=== PATIENT | male | born 1935 | race Caucasian/White ===

== ENCOUNTER → 2016-06-27 | Outpatient (CLI) | payer OTHER, BC ==
[~2016-06-27] MED LIST: ASPI325T45 PO; CYAN3INJ IM; ENAL1TAB34 PO; INSDGI SC; METF850T PO; MULT-190 PO; NRV5 PO; OMEP10CA2 PO; SIMV20TA2 PO
[2016-06-27 14:09] LABS: ESTIMATED AVERAGE GLUCOSE 214 mg/dl; HA1C FLAG Normal (Normal)
[2016-06-27 14:56] LABS: BLOOD UREA NITROGEN 17 mg/dl (7-18); CALCIUM 9.6 mg/dl (8.5-10.1); CARBON DIOXIDE 23 mmol/L (21-32); CHLORIDE 107 mmol/L (98-107); GLUCOSE 202 mg/dl (70-99); PHOSPHORUS 2.7 mg/dl (2.5-4.9); POTASSIUM 4.6 mmol/L (3.5-5.1); SODIUM 140 mmol/L (136-145)
== END | disposition home or self-care (01) ==
LOC: C.LABMFLN 09:23
PROVIDERS: ATTEND Family Medicine
DX: E11.42 Type 2 diabetes mellitus with diabetic polyneuropathy (principal)

== ENCOUNTER → 2016-07-31 | Outpatient (CLI) | payer OTHER, BC ==
[~2016-07-31] MED LIST changes: +REGADENOSON 0.4 MG/5 ML SYR ONE
--- NOTE | 2016-08-01 22:45 | MYOCARDIAL PERFUSION SCAN ---
Study requested by Dr. Dyson. PRIMARY CARE PHYSICIAN: Dr. Ramos. ONE-DAY NUCLEAR MEDICINE TECHNETIUM-99M CARDIOLITE MYOCARDIAL PERFUSION SCAN INDICATION: Abnormal echo. RESTING EKG. Sinus rhythm with a ventricular pacing. STRESS EKG Nondiagnostic with ventricular pacing and failure to achieve target heart rates. Resting heart rate was 60, up to 92 with Lexiscan, representing 66% of maximum predicted heart rate. There were occasional PACs and PVCs, but no other complex arrhythmias. TECHNIQUE: For the stress portion of the study, 30.9 mCi of technetium-99m Cardiolite IV was injected at 11:30 a.m. on July 31. Thirty minutes following the injection, imaging of the heart was performed in multiple projections. For the rest portion of the study, 11.1 mCi of technetium-99m Cardiolite was injected IV at 9:30 a.m. One hour following the injection, imaging of the heart was performed in the same projections. FINDINGS: Rotating raw images were reviewed in detail. Arms were down at the time of imaging. There was mild gut and liver uptake near the inferior imaging border of the heart. There was no significant pathologic extracardiac uptake. The short axis, vertical long axis and horizontal long axis images were reviewed in detail. There was no visual TID. There was a small, mild fixed perfusion defect involving the apex and apical septum without significant reversibility. The EF was 53%. The end LV volume was at the upper limits of normal with an end-diastolic volume of 145. There was apical hypokinesis and almost dyskinesis at the apical septum. IMPRESSION: 1. No significant Lexiscan-induced myocardial ischemia. 2. A small fixed apical apical-septal perfusion defect. Likely represents artifact/potential apical thinning; less likely, findings could represent a small distal left anterior descending infarct. 3. Borderline dilated left ventricle with an end-diastolic volume of 145. Normal left ventricular function with an EF of 53%. 4. Nondiagnostic ventricularly-paced Lexiscan electrocardiogram. MTDD
== END | disposition home or self-care (01) ==
LOC: C.NUCL 09:05
PROVIDERS: ATTEND Internal Medicine Cardiovascular Disease
DX: E78.5 Hyperlipidemia, unspecified (principal); I10 Essential (primary) hypertension; I25.10 Atherosclerotic heart disease of native coronary artery without angina pectoris; I77.810 Thoracic aortic ectasia; R60.9 Edema, unspecified; R93.1 Abnormal findings on diagnostic imaging of heart and coronary circulation

== ENCOUNTER → 2016-09-20 | Outpatient (CLI) | payer OTHER, BC ==
[~2016-09-20] MED LIST changes: -REGADENOSON 0.4 MG/5 ML SYR ONE
[2016-09-20 13:15] LABS: COMPLETE YES; EOS % 0.8 %; HEMATOCRIT 36.5 % (42-52); IG% 0.7 %; LYMPH % 17.8 %; LYMPH ABS # 1.69 K/uL (1.2-3.4); MEAN CELL VOLUME 92.9 fL (80-100); MEAN CORPUSCULAR HEMOGLOBIN 31.3 pg (25-34); MEAN CORPUSCULAR HGB CONC 33.7 g/dl (32-36); MEAN PLATELET VOLUME 9.8 fL (7.4-10.4); MONO % 22.4 %; NEUT % 58.3 %; PLATELET COUNT 249 K/uL (130-400); RED BLOOD COUNT 3.93 M/uL (4.7-6.1); WHITE BLOOD COUNT 9.47 K/uL (4.8-10.8)
[2016-09-20 14:53] LABS: LYME DISEASE AB IGG NEG (NEG)
[2016-09-20 14:55] LABS: LYME DISEASE AB IGM NEG (NEG)
== END | disposition home or self-care (01) ==
LOC: C.LABMFLN 09:15
PROVIDERS: ATTEND Family Medicine
DX: M25.50 Pain in unspecified joint (principal)

== ENCOUNTER → 2016-10-01 | Outpatient (CLI) | payer OTHER, BC ==
[2016-10-01 13:31] LABS: ESTIMATED AVERAGE GLUCOSE 169 mg/dl; HA1C FLAG Normal (Normal)
[2016-10-01 13:41] LABS: BLOOD UREA NITROGEN 28 mg/dl (7-18); BUN/CREATININE RATIO 23.3 (10-20); CALCIUM 9.9 mg/dl (8.5-10.1); CARBON DIOXIDE 26 mmol/L (21-32); CHLORIDE 105 mmol/L (98-107); GLUCOSE 148 mg/dl (70-99); POTASSIUM 4.7 mmol/L (3.5-5.1); SODIUM 138 mmol/L (136-145)
[2016-10-01 13:55] LABS: PHOSPHORUS 2.5 mg/dl (2.5-4.9)
== END | disposition home or self-care (01) ==
LOC: C.LABMFLN 11:33
PROVIDERS: ATTEND Family Medicine
DX: I10 Essential (primary) hypertension (principal); E11.49 Type 2 diabetes mellitus with other diabetic neurological complication; M25.50 Pain in unspecified joint; M79.1 Myalgia

== ENCOUNTER → 2017-02-12 | Outpatient (CLI) | payer OTHER, BC ==
[2017-02-12 18:15] LABS: BASO % 0.1 %; BASO ABS # 0.01 K/uL (0-0.2); COMPLETE YES; EOS % 0.1 %; HEMATOCRIT 38.7 % (42-52); IG% 2.6 %; LYMPH % 12.3 %; LYMPH ABS # 1.49 K/uL (1.2-3.4); MEAN CELL VOLUME 95.6 fL (80-100); MEAN CORPUSCULAR HEMOGLOBIN 31.9 pg (25-34); MEAN CORPUSCULAR HGB CONC 33.3 g/dl (32-36); MEAN PLATELET VOLUME 10.8 fL (7.4-10.4); MONO % 12.1 %; NEUT % 72.8 %; PLATELET COUNT 210 K/uL (130-400); RED BLOOD COUNT 4.05 M/uL (4.7-6.1); WHITE BLOOD COUNT 12.15 K/uL (4.8-10.8)
[2017-02-12 18:23] LABS: BLOOD UREA NITROGEN 19 mg/dl (7-18); CALCIUM 9.4 mg/dl (8.5-10.1); CARBON DIOXIDE 23 mmol/L (21-32); CHLORIDE 104 mmol/L (98-107); CREATININE 1.14 mg/dl (0.60-1.40); GLUCOSE 213 mg/dl (70-99); PHOSPHORUS 2.4 mg/dl (2.5-4.9); POTASSIUM 4.6 mmol/L (3.5-5.1); SODIUM 135 mmol/L (136-145)
[2017-02-12 18:31] LABS: RATIO 90.7 mcg/mg (0-30.0)
[2017-02-13 05:17] LABS: ESTIMATED AVERAGE GLUCOSE 194 mg/dl; HA1C FLAG Normal (Normal)
== END | disposition home or self-care (01) ==
LOC: C.LABMFLN 12:18
PROVIDERS: ATTEND Family Medicine
DX: E11.42 Type 2 diabetes mellitus with diabetic polyneuropathy (principal)

== ENCOUNTER → 2017-05-14 | Outpatient (CLI) | payer OTHER, BC ==
[2017-05-14 19:10] LABS: ALBUMIN 3.8 gm/dl (3.4-5.0); BLOOD UREA NITROGEN 20 mg/dl (7-18); CALCIUM 9.3 mg/dl (8.5-10.1); CARBON DIOXIDE 29 mmol/L (21-32); CREATININE 1.14 mg/dl (0.60-1.40); GLUCOSE 151 mg/dl (70-99); POTASSIUM 4.8 mmol/L (3.5-5.1); SODIUM 140 mmol/L (136-145)
[2017-05-14 19:11] LABS: PHOSPHORUS 2.8 mg/dl (2.5-4.9)
[2017-05-15 07:20] LABS: HEMOGLOBIN A1C 8.1 % (4.5-5.6)
== END | disposition home or self-care (01) ==
LOC: C.LABMFLN 14:53
PROVIDERS: ATTEND Family Medicine
DX: E11.49 Type 2 diabetes mellitus with other diabetic neurological complication (principal)

== ENCOUNTER 2018-07-23 13:00 | Inpatient (IN) ==
[2018-07-23] MEDS ORDERED: SODIUM CHLORIDE 0.9% 1000ML 500 ML IV ONE (13:50)
[2018-07-23 14:03] LABS: Hematocrit (blood only) 40.7 % (42-52); Hemoglobin 13.7 g/dL (14.0-18.0); Mean Corpuscular Hgb Conc 33.7 g/dL (32-36); Mean Corpuscular Volume 93.3 fL (80-100); Mean Platelet Volume 10.8 fL (7.4-10.4); Platelet Count 180 K/uL (130-400); RDW Coefficient of Variation 13.2 % (11.5-14.5); RDW Standard Deviation 45.4 fL (36.4-46.3); Red Blood Count 4.36 M/uL (4.7-6.1)
[2018-07-23 14:12] LABS: Alanine Aminotransferase 21 U/L (12-78); Albumin Level 3.8 gm/dl (3.4-5.0); Aspartate Aminotransferase 15 U/L (15-37); BUN Creatinine Ratio 11.8 (10-20); Blood Urea Nitrogen 18 mg/dl (7-18); Calcium 9.5 mg/dl (8.5-10.1); Carbon Dioxide 23 mmol/L (21-32); Chloride 108 mmol/L (98-107); Est GFR (African American) 47.7; Est GFR (Non-African American) 41.1; Glucose 148 mg/dl (70-99); Magnesium 1.7 mg/dl (1.8-2.4); Potassium 4.7 mmol/L (3.5-5.1); Sodium 139 mmol/L (136-145)
[2018-07-23 14:14] LABS: D Dimer 500 ug/L FEU (0-500); INR 1.2 (0.9-1.1); Prothrombin Time 11.7 Seconds (9.0-12.0)
--- NOTE | 2018-07-23 14:21 | XRay Report ---
XR chest 1V portable CLINICAL HISTORY: dizziness, hypotension COMPARISON STUDY: March 2015 FINDINGS: The heart is the upper limits of normal in size. There is a left subclavian dual-chamber ce ntral venous pacemaker. There is no focal pulmonary consolidation. There is no overt failure. There a re no pleural effusions.[ IMPRESSION: No active disease in the chest. Electronically signed by: Dorian Clark M.D. 07/23/2018 2:19 PM
[2018-07-23 14:26] LABS: Albumin Globulin Ratio 1.1 (0.9-2); Alkaline Phosphatase 92 U/L (45-117); Bilirubin,Total 0.7 mg/dl (0.2-1); Globulin 3.3 gm/dl (2.5-4.0); NT Pro B Type Natriuretic Pept 15963 pg/ml (0-1800); Total Protein 7.1 gm/dl (6.4-8.2); Troponin I 0.102 ng/ml (0-0.045)
[2018-07-23 14:38] LABS: Basophils # (auto) 0.01 K/uL (0-0.2); Basophils % (auto) 0.1 %; Eosinophils # (auto) 0.04 K/uL (0-0.5); Eosinophils % (auto) 0.3 %; Immature Granulocytes # (auto) 0.06 K/uL (0.00-0.02); Immature Granulocytes % (auto) 0.5 %; Lymphocytes # (auto) 3.21 K/uL (1.2-3.4); Lymphocytes % (auto) 27.4 %; Monocytes # (auto) 1.98 K/uL (0.11-0.59); Monocytes % (auto) 16.9 %; Neutrophils % (auto) 54.8 %; RBC Morphology Unremarkable
--- NOTE | 2018-07-23 15:09 | History & Physical Report ---
Date of Service July 23, 2018 Assessment & Plan (1) NSTEMI (non-ST elevated myocardial infarction): 82 y/o M Hx HTN, HLD, RA, CAD/ND, A flutter, chronic systolic CHF, DM II, complete heart block - pacer. Presented with an episode of lightheadedness, nausea, dry heaving, diaphoresis and SOB lasting a few minutes. He states that the symptoms were similar to when he had an ND in 2010, however, he also had CP at that time which he did not have today. Pacer interrogation did not demonstrate an etiology for the pt's symptoms. Initial labs show an elevated troponin and mild VANDANA. An EKG is nondiagnostic due to dual-chamber pacing. 1) NSTEMI - The pt will be assigned to telemetry. We will trend enzymes. 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 He does not tolerate Statins. 2) DM II - placed on a SS with Lantus 3) HTN/HLD - as above - does not tolerate Statins - cont Enalapril 4) RA - can resume Hydroxychloroquine 5) Mild VANDANA - IVF provided - repeat BMP AM Full cod - Heparin prophylaxis Total time for this admit including review of labs, meds, imaging, records - discussion with pt and ER attending - 38 min Present on Admission?: Yes History of Present Illness Chief Complaint: Lightheaded, diaphoresis - elevated trop Primary Care Provider: Katerina Ramos MD 82 y/o M Hx HTN, HLD, RA, CAD/ND, A flutter, chronic systolic CHF, DM II, complete heart block - pacer. Presented with an episode of lightheadedness, nausea, dry heaving, diaphoresis and SOB lasting a few minutes. He states that the symptoms were similar to when he had an ND in 2010, however, he also had CP at that time which he did not have today. Pacer interrogation did not demonstrate an etiology for the pt's symptoms. Initial labs show an elevated troponin and mild VANDANA. An EKG is nondiagnostic due to dual-chamber pacing. 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 Family: Adopted Allergies Allergy/AdvReac Type Severity Reaction Status Date / Time No Known Allergies Allergy Unverified 07/23/18 13:44 Home Medications Home Medications Medication Instructions Recorded Confirmed Type antiox.mv no.[id number] 1 cap PO DAILY 07/23/18 07/23/18 History [I-Caps] enalapril maleate 20 mg PO DAILY 07/23/18 07/23/18 History hydroxychloroquine 200 mg PO DAILY 07/23/18 07/23/18 History insulin glargine [Lantus Solostar 20 unit SUBCUT HS 07/23/18 07/23/18 History U-100 Insulin] metformin 1,000 mg PO BID 07/23/18 07/23/18 History nitroglycerin 0.4 mg SUBLINGUAL DIRECTED 07/23/18 07/23/18 History omeprazole 20 mg PO DAILY 07/23/18 07/23/18 History Past Med/Surg History Medical History Heart attack Surgical History History of permanent cardiac pacemaker placement Social History Preferred Language: [place] Communication Ability: Effective 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 Beliefs That Will Affect Care: None marital status: Current Living Situation: Spouse Other Information That Helps Us Care for You: No Feels Safe at Home: Yes Safety Concerns: Feels Safe At This Time Smoking Status: Former smoker Tobacco Type: cigarettes Do You Dip or Chew Tobacco: No Smoking End Date: 1993 Second Hand Exposure: No Tobacco Cessation Education Requested by Patient: No Hx Alcohol Use: Yes Alcohol type: beer Hx Substance Use: No Review of Systems Review of Systems: Gen: Diaphoresis ENT: Denies congestion, throat pain, hearing loss Eyes: Denies acute visual changes CV: Denies CP, palpitations Pulmonary: SOB reported with CP GI: Nausea and dry heaving Neuro: Denies acute or unilateral weakness, acute gait impairment, headache or acute visual changes Musculoskeletal: Denies joint pain, inflammation Endocrine: Denies polydipsia, polyuria Skin: Denies acute rashes or ulcers Physical Exam Physical Exam: General: AAO x 3, no distress ENT: No erythema or exudates, no thrush Eyes: FLORENCIA, EOMI Head and neck: Normocephalic, atraumatic, No JVD, neck is supple. Chest/heart: Nontender, S1,2, RRR, faint, no murmurs, no gallops - no induration at pacer site Lungs: CTAB, no wheezing or crackles Abdomen: Nontender, nondistended, BS+ Neuro: AAO x 3, speech is clear, no unilateral weakness or loss of sensation, coordination intact Musculoskeletal: No joint inflammation, muscle tenderness, FROM Skin: No acute rashes or ulcers Extremities: No clubbing, cyanosis, edema Results & Data Vital Signs (Past 12 Hours) Vital Signs Temp Pulse Resp BP Pulse Ox 07/23/18 14:30 61 17 134/65 07/23/18 14:00 61 14 112/57 L 07/23/18 13:30 61 17 91/51 L 07/23/18 13:15 66 23 101/53 L 07/23/18 13:03 97.5 F L 60 20 96/59 L 97
[2018-07-23] MEDS ORDERED: ALUMINUM/MAGNESIUM SUSP 30 ML UDC PO PRN (16:39)
[2018-07-23] MEDS ORDERED: POLYETHYLENE (MIRALAX) 17 GM PACK PO PRN (16:39)
[2018-07-23] MEDS ORDERED: ONDANSETRON INJ 2 MG/ML 2 ML VIAL IV PRN (16:39)
[2018-07-23] MEDS ORDERED: SODIUM CHLORIDE 0.9% 1000ML 1,000 ML IV SCH (16:39)
[2018-07-23] MEDS ORDERED: MoRPHine SULFATE 2 MG/ML CARP IV PRN (16:39)
[2018-07-23] MEDS ORDERED: ACETAMINOPHEN 325 MG TAB PO PRN (16:39)
[2018-07-23] MEDS ORDERED: MAGNESIUM HYDROXIDE SUSP 30 ML UDC PO PRN (16:39)
[2018-07-23] MEDS ORDERED: NITROGLYCERIN SL 0.4 MG/TAB TAB SL PRN (16:39)
[2018-07-23] MEDS ORDERED: Heparin IV Standard *NO* Bolus IV SCH (16:45)
[2018-07-23] MEDS ORDERED: DEXTROSE 50% 50 ML SYRINGE IV PRN ×2 (19:00→21:08)
[2018-07-23] MEDS ORDERED: GLUCOSE 40% GEL 15 GM TUBE PO PRN ×2 (19:00→21:08)
[2018-07-23] MEDS ORDERED: CARBOHYDRATES FOR HYPOGLYCEMIA PO PRN ×2 (19:00→21:08)
[2018-07-23] MEDS ORDERED: GLUCAGON FOR INJ 1 MG VIAL IM PRN (19:00)
[2018-07-23] MEDS ORDERED: GLUCOSE 10 TABS/TUBE PO PRN ×2 (19:00→21:08)
[2018-07-23] MEDS ORDERED: INSULIN GLARGINE SOLOSTAR 100 UNITS/ML 3 ML PEN SQ SCH (21:00)
[2018-07-23 21:02] LABS: Appearance Urine Cloudy (Clear); Bacteria Urine Automated Negative (Negative); Bilirubin Urine Negative (Negative); Blood Urine Negative (Negative); Color Urine Dark Yellow; Epithelial Cell Urine Auto >30 /lpf (0-5); Glucose Urine UA Negative (Negative); Ketones Urine Trace (Negative); Leukocyte Esterase Urine Trace (Negative); Nitrite Urine Negative (Negative); Protein Urine 1+ (Negative); RBC Urine Automated 0-4 /hpf (0-4); Specific Gravity Urine 1.021 (1.000-1.030); Urobilinogen Urine Negative (Negative)
[2018-07-23] MEDS ORDERED: GLUCAGON FOR INJ 1 MG VIAL SQ PRN (21:08)
[2018-07-23 21:38] LABS: Cast Urine Automated >30 /lpf (0-5)
[2018-07-23] MEDS: D5W AND 1/2NSS 1,000 ML IV SCH (21:41)
[2018-07-23 23:14] LABS: Basophils # (auto) 0.01 K/uL (0-0.2); Basophils % (auto) 0.1 %; Eosinophils # (auto) 0.04 K/uL (0-0.5); Eosinophils % (auto) 0.5 %; Hematocrit (blood only) 34.4 % (42-52); Hemoglobin 12.1 g/dL (14.0-18.0); Immature Granulocytes # (auto) 0.03 K/uL (0.00-0.02); Immature Granulocytes % (auto) 0.3 %; Lymphocytes # (auto) 2.53 K/uL (1.2-3.4); Lymphocytes % (auto) 29.1 %; Mean Corpuscular Hgb Conc 35.2 g/dL (32-36); Mean Corpuscular Volume 90.3 fL (80-100); Mean Platelet Volume 9.6 fL (7.4-10.4); Monocytes # (auto) 2.28 K/uL (0.11-0.59); Monocytes % (auto) 26.2 %; Neutrophils % (auto) 43.8 %; Platelet Count 148 K/uL (130-400); RDW Coefficient of Variation 13.2 % (11.5-14.5); RDW Standard Deviation 42.9 fL (36.4-46.3); Red Blood Count 3.81 M/uL (4.7-6.1); White Blood Count 8.69 K/uL (4.8-10.8)
[2018-07-23 23:27] LABS: INR 1.2 (0.9-1.1); Partial Thromboplastin Ratio 1.3; Partial Thromboplastin Time 35.1 Seconds (21.0-31.0); Prothrombin Time 11.8 Seconds (9.0-12.0)
[2018-07-23] MEDS ORDERED: Heparin Adult STANDARD Wt-Based Dextrose 5% 25,000 units/500 mL IV SCH (23:55)
[2018-07-24] MEDS: INSULIN ASPART 100 UNITS/ML 3 ML PEN SC SCH ×3 (06:08→12:14)
[2018-07-24 06:49] LABS: Eosinophils # (auto) 0.06 K/uL (0-0.5); Eosinophils % (auto) 0.7 %; Hematocrit (blood only) 34.3 % (42-52); Immature Granulocytes # (auto) 0.03 K/uL (0.00-0.02); Immature Granulocytes % (auto) 0.3 %; Lymphocytes # (auto) 2.69 K/uL (1.2-3.4); Lymphocytes % (auto) 30.7 %; Mean Corpuscular Volume 90.5 fL (80-100); Mean Platelet Volume 9.9 fL (7.4-10.4); Monocytes # (auto) 2.37 K/uL (0.11-0.59); Monocytes % (auto) 27.1 %; Neutrophils # (auto) 3.61 K/uL (1.4-6.5); Neutrophils % (auto) 41.2 %; Platelet Count 148 K/uL (130-400); RDW Coefficient of Variation 13.2 % (11.5-14.5); RDW Standard Deviation 43.6 fL (36.4-46.3); Red Blood Count 3.79 M/uL (4.7-6.1); White Blood Count 8.76 K/uL (4.8-10.8)
--- NOTE | 2018-07-24 07:11 | Emergency Department Note ---
Entered by Nanci Singh acting as a scribe for History of Present Illness General Chief complaint: Dizziness Stated complaint: DIZZY, ALMOST PASSED OUT, BP HIGH, PACEMAKER Time Seen by Provider: 07/23/18 13:13 Source: patient Mode of arrival: ambulatory Limitations: no limitations History of Present Illness Provider complaint: dizzy Onset (ago): hour(s) 3 Location: head Pain Consistency: + other (episode) Quality: + other (dizzy) Associated symptoms: + denies other symptoms (leg swelling, speech slur), + diaphoresis, + headaches, + nausea/vomiting and + other (tired,pale ); no chest pain and no shortness of breath The patient is an 82 year old male who presents to the ER with complaints of an episode of dizziness that occurred eat 1100 today. The patient reports that he was sitting down watching television when he suddenly got dizzy, hot and diaphoretic. He states that he felt nauseous during this episode as well but denies any vomiting. He notes that he did eat breakfast today and did take his morning medications. He also reports that his symptoms felt similar to when he had a heart attack, but notes he had chest pain during that time and not today. He denies any associated symptoms or leg swelling but states he does have a mild headache and feels tired. He denies any urinary symptoms or abnormal bowel movements. The daughter denies any speech slur but notes he does look pale. Patient denies any recent illness, fevers or chills. No recent change in medications or change in activity. 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 Patient does feel he has had an echo recently as part of an evaluation for his pacemaker. Pt feels improved now, but not completely back to normal. Review of EMR with the assistance of case management shows an echo performed earlier this year with an EF of 45% and cardiomyopathy noted. Home Medications Home Medications Medication Instructions Recorded Confirmed Type antiox.mv [id number] 1 cap PO DAILY 07/23/18 07/23/18 History [I-Caps] enalapril maleate 20 mg PO DAILY 07/23/18 07/23/18 History hydroxychloroquine 200 mg PO DAILY 07/23/18 07/23/18 History insulin glargine [Lantus Solostar 20 unit SUBCUT HS 07/23/18 07/23/18 History U-100 Insulin] metformin 1,000 mg PO BID 07/23/18 07/23/18 History nitroglycerin 0.4 mg SUBLINGUAL DIRECTED 07/23/18 07/23/18 History omeprazole 20 mg PO DAILY 07/23/18 07/23/18 History Allergies Allergy/AdvReac Type Severity Reaction Status Date / Time No Known Allergies Allergy Unverified 07/23/18 13:44 Past Med/Surg History Medical History Heart attack Surgical History History of permanent cardiac pacemaker placement Social History Preferred Language: British Communication Ability: Effective Chemical Educator Required: No Beliefs That Will Affect Care: None marital status: Current Living Situation: Spouse Other Information That Helps Us Care for You: No Feels Safe at Home: Yes Safety Concerns: Feels Safe At This Time Smoking Status: Former smoker Tobacco Type: cigarettes Do You Dip or Chew Tobacco: No Smoking End Date: 1993 Second Hand Exposure: No Tobacco Cessation Education Requested by Patient: No Hx Alcohol Use: Yes Alcohol type: beer Hx Substance Use: No Review of Systems See HPI for pertinent positives & negatives. and A total of 10 systems reviewed and were otherwise negative Physical Exam Vital Signs Vital Signs - 24 hr 07/23/18 13:03 07/23/18 13:15 07/23/18 13:30 Temperature 36.4 C L Temperature Source Oral Sepsis Recent Fever Within 48 Hours No Sepsis New/Unexplained Change in Mental Status No Sepsis Action Taken by Nursing No Action Required Pulse Rate 60 66 61 Pulse Rate [Apical] Pulse Rate [Finger] Pulse Rhythm Regular Pulse Rhythm [Apical] Pulse Strength Normal Pulse Strength [Apical] Respiratory Rate 20 23 17 Respiratory Effort / Characteristics Non-Labored Spontaneous Nasal Congestion Respiratory Depth Normal Blood Pressure 96/59 L 101/53 L 91/51 L Blood Pressure [Left Arm] Blood Pressure [Right Arm] Blood Pressure Mean 71 69 64 Blood Pressure Mean [Left Arm] Blood Pressure Mean [Right Arm] Blood Pressure Position Sitting Blood Pressure Position [Left Arm] Blood Pressure Position [Right Arm] Pulse Oximetry 97 Oxygen Delivery Method Room Air 07/23/18 14:00 07/23/18 14:30 05/09/19 15:22 Temperature Temperature Source Sepsis Recent Fever Within 48 Hours Sepsis New/Unexplained Change in Mental Status Sepsis Action Taken by Nursing Pulse Rate 61 61 Pulse Rate [Apical] 60 Pulse Rate [Finger] Pulse Rhythm Pulse Rhythm [Apical] Pulse Strength Pulse Strength [Apical] Respiratory Rate 14 17 17 Respiratory Effort / Characteristics Respiratory Depth Blood Pressure 112/57 L 134/65 Blood Pressure [Left Arm] 128/63 Blood Pressure [Right Arm] Blood Pressure Mean 75 88 Blood Pressure Mean [Left Arm] 84 Blood Pressure Mean [Right Arm] Blood Pressure Position Blood Pressure Position [Left Arm] Sitting Blood Pressure Position [Right Arm] Pulse Oximetry 97 Oxygen Delivery Method Room Air 07/23/18 16:38 07/23/18 16:39 07/23/18 19:22 Temperature 36.3 C L 36.5 C Temperature Source Oral Oral Sepsis Recent Fever Within 48 Hours Sepsis New/Unexplained Change in Mental Status Sepsis Action Taken by Nursing Pulse Rate Pulse Rate [Apical] 65 61 69 Pulse Rate [Finger] Pulse Rhythm Pulse Rhythm [Apical] Regular Pulse Strength Pulse Strength [Apical] Normal Respiratory Rate 18 18 Respiratory Effort / Characteristics Respiratory Depth Blood Pressure Blood Pressure [Left Arm] Blood Pressure [Right Arm] 131/70 150/74 H Blood Pressure Mean Blood Pressure Mean [Left Arm] Blood Pressure Mean [Right Arm] 90 99 Blood Pressure Position Blood Pressure Position [Left Arm] Blood Pressure Position [Right Arm] Sitting Lying Pulse Oximetry 98 97 Oxygen Delivery Method Room Air Room Air 07/23/18 23:06 07/24/18 03:21 07/24/18 06:40 Temperature 36.6 C 36.5 C 36.8 C Temperature Source Oral Oral Oral Sepsis Recent Fever Within 48 Hours Sepsis New/Unexplained Change in Mental Status Sepsis Action Taken by Nursing Pulse Rate Pulse Rate [Apical] 68 Pulse Rate [Finger] 69 67 Pulse Rhythm Pulse Rhythm [Apical] Pulse Strength Pulse Strength [Apical] Respiratory Rate 18 20 22 Respiratory Effort / Characteristics Respiratory Depth Blood Pressure Blood Pressure [Left Arm] 145/71 H Blood Pressure [Right Arm] 143/71 H 147/74 H Blood Pressure Mean Blood Pressure Mean [Left Arm] 95 Blood Pressure Mean [Right Arm] 95 98 Blood Pressure Position Blood Pressure Position [Left Arm] Lying Blood Pressure Position [Right Arm] Lying Lying Pulse Oximetry 93 95 95 Oxygen Delivery Method Room Air Room Air Room Air GENERAL: alert, well appearing, well nourished, no distress, non-toxic EYE EXAM: normal conjunctiva, PERRL and EOM's grossly intact OROPHARYNX: no exudate, no erythema, lips, buccal mucosa, and tongue normal and mucous membranes are moist NECK: supple, no nuchal rigidity, no adenopathy, non-tender CHEST: well healed pacemaker site, left anterior superior chest wall LUNGS: Clear to auscultation. Normal chest wall mechanics, no w/r/r HEART: no murmurs, S1 normal and S2 normal ABDOMEN: abdomen soft, non-tender, normo-active bowel sounds, no masses, no rebound or guarding. BACK: Back is symmetrical on inspection and there is no deformity, no midline tenderness, no CVA tenderness. SKIN: no rashes and no bruising UPPER EXTREMITIES: upper extremities are grossly normal. FROM, nml pulses b/l. LOWER EXTREMITIES: No pitting edema. FROM, nml pulses b/l. NEURO EXAM: Normal sensorium, cranial nerves II-XII grossly intact, normal speech, no gross weakness of arms, no gross weakness of legs. No ataxia. Nml finger to nose. No pronator drift. Normal heel to rodriguez. Course 1356: Past medical records reviewed. The patient was evaluated in room A2. A complete history and physical examination was performed. 1435: I updated the patient on his results and he is agreeable with the treatment plan. 1500: I discussed the patient's case with Dr. Car - [facility] Hospitalist. He will evaluate the patient for further management. Administered Medications Acetaminophen (Tylenol) 650 mg PO Q4H PRN PRN Reason: Pain or Fever Stop: 08/22/18 16:38 Last Admin: 07/23/18 19:38 Dose: 325 mg Documented by: [id number] Heparin Sodium/Dextrose (Heparin Sodium/Dextrose) 25,000 units in 500 mls @ 0 mls/hr IV .Q0M REPLACED BY [facility]; Protocol Stop: 08/22/18 23:54 Last Titration: 07/24/18 07:17 Dose: 0 units/hr, 0 mls/hr Documented by: [id number] Cosigned by: [id number] Admin: 07/23/18 23:55 Dose: 1,450 units/hr, 29 mls/hr Documented by: [id number] Cosigned by: [id number] Dextrose/Sodium Chloride (D5w And 1/2nss) 1,000 mls @ 80 mls/hr IV .[id number] EDDA Stop: 08/22/18 21:29 Last Admin: 07/23/18 21:41 Dose: 80 mls/hr Documented by: [id number] Insulin Aspart (Novolog Flexpen) 0 units SC Q6 EDDA Stop: 08/22/18 00:00 Last Admin: 07/24/18 06:08 Dose: Not Given Documented by: [id number] Cosigned by: [id number] Admin: 07/24/18 00:00 Dose: Not Given Documented by: [id number] Cosigned by: [id number] Insulin Glargine (Lantus Solostar Pen) 16 units SQ HS EDDA Stop: 08/22/18 20:59 Last Admin: 07/23/18 21:18 Dose: Not Given Documented by: [id number] Cosigned by: [id number] Discontinued Medications Sodium Chloride (Nss 1000ml) 500 mls @ 999 mls/hr IV .Q31M ONE Stop: 07/23/18 14:20 Last Infusion: 07/23/18 14:46 Dose: 0 mls/hr Documented by: [id number] Admin: 07/23/18 14:02 Dose: 999 mls/hr Documented by: [id number] Sodium Chloride (Nss 1000ml) 1,000 mls @ 80 mls/hr IV .[id number] EDDA Stop: 07/24/18 05:08 Last Infusion: 07/23/18 21:38 Dose: 0 mls/hr Documented by: [id number] Admin: 07/23/18 16:52 Dose: 80 mls/hr Documented by: [id number] Medical Decision Making Differential Diagnosis Differential diagnosis includes etiologies such as benign positional vertigo, dehydration, hypovolemia, anemia, tumor, infection, hypoglycemia, electrolyte abnormalities, cardiac sources, intracerebral event, toxicologic, neurologic, as well as others were entertained. Medical Records Attestation: I reviewed the patient's medical records. Home Medications Current Medication List: was personally reviewed by me Laboratory Data Attestation: I reviewed the patient's lab results. Result diagrams: 07/24/18 06:35 07/24/18 06:35 Lab Results 07/23/18 07/23/18 07/23/18 Range/Units 13:19 13:19 13:19 WBC 11.70 H (4.8-10.8) K/uL RBC 4.36 L (4.7-6.1) M/uL Hgb 13.7 L (14.0-18.0) g/dL Hct 40.7 L (42-52) % MCV 93.3 (80-100) fL MCH 31.4 (25-34) pg MCHC 33.7 (32-36) g/dL RDW Std Deviation 45.4 (36.4-46.3) fL RDW Coeff of Skye 13.2 (11.5-14.5) % Plt Count 180 (130-400) K/uL MPV 10.8 H (7.4-10.4) fL Immature Gran % (Auto) 0.5 % Neut % (Auto) 54.8 % Lymph % (Auto) 27.4 % [place] % (Auto) 16.9 % Eos % (Auto) 0.3 % Baso % (Auto) 0.1 % Immature Gran # (Auto) 0.06 H (0.00-0.02) K/uL Neut # (Auto) 6.40 (1.4-6.5) K/uL Lymph # (Auto) 3.21 (1.2-3.4) K/uL [place] # (Auto) 1.98 H (0.11-0.59) K/uL Eos # (Auto) 0.04 (0-0.5) K/uL Baso # (Auto) 0.01 (0-0.2) K/uL RBC Morphology Unremarkable PT 11.7 (9.0-12.0) Seconds INR 1.2 H (0.9-1.1) APTT (21.0-31.0) Seconds PTT Ratio D-Dimer 500 (0-500) ug/L FEU Sodium 139 (136-145) mmol/L Potassium 4.7 (3.5-5.1) mmol/L Chloride 108 H (98-107) mmol/L Carbon Dioxide 23 (21-32) mmol/L Anion Gap 8.0 (3-11) BUN 18 (7-18) mg/dl Creatinine 1.53 H (0.6-1.4) mg/dl Est Cr Clr Drug Dosing Not Reportable Est GFR ( Amer) 47.7 Est GFR (Non-Af Amer) 41.1 BUN/Creatinine Ratio 11.8 (10-20) Glucose 148 H (70-99) mg/dl POC Glucose (70-99) Calcium 9.5 (8.5-10.1) mg/dl Magnesium 1.7 L (1.8-2.4) mg/dl Total Bilirubin 0.7 (0.2-1) mg/dl AST 15 (15-37) U/L ALT 21 (12-78) U/L Alkaline Phosphatase 92 (45-117) U/L Troponin I 0.102 H* (0-0.045) ng/ml NT-Pro-B Natriuret Pep 75492 H (0-1800) pg/ml Total Protein 7.1 (6.4-8.2) gm/dl Albumin 3.8 (3.4-5.0) gm/dl Globulin 3.3 (2.5-4.0) gm/dl Albumin/Globulin Ratio 1.1 (0.9-2) Lipase 60 L (73-393) U/L TSH 3.040 (0.300-4.500) uIu/ml Urine Color Urine Appearance (Clear) Urine pH (4.5-7.5) Ur Specific Boaz (1.000-1.030) Urine Protein (Negative) Urine Glucose (UA) (Negative) Urine Ketones (Negative) Urine Blood (Negative) Urine Nitrite (Negative) Urine Bilirubin (Negative) Urine Urobilinogen (Negative) Ur Leukocyte Esterase (Negative) Urine WBC (Auto) (0-5) /hpf Urine RBC (Auto) (0-4) /hpf U Hyaline Cast (Auto) (0-5) /lpf U Epithel Cells (Auto) (0-5) /lpf Urine Bacteria (Auto) (Negative) Granular Casts (0) /lpf 07/23/18 07/23/18 07/23/18 Range/Units 16:42 17:07 20:10 WBC (4.8-10.8) K/uL RBC (4.7-6.1) M/uL Hgb (14.0-18.0) g/dL Hct (42-52) % MCV (80-100) fL MCH (25-34) pg MCHC (32-36) g/dL RDW Std Deviation (36.4-46.3) fL RDW Coeff of Skye (11.5-14.5) % Plt Count (130-400) K/uL MPV (7.4-10.4) fL Immature Gran % (Auto) % Neut % (Auto) % Lymph % (Auto) % [place] % (Auto) % Eos % (Auto) % Baso % (Auto) % Immature Gran # (Auto) (0.00-0.02) K/uL Neut # (Auto) (1.4-6.5) K/uL Lymph # (Auto) (1.2-3.4) K/uL [place] # (Auto) (0.11-0.59) K/uL Eos # (Auto) (0-0.5) K/uL Baso # (Auto) (0-0.2) K/uL RBC Morphology PT (9.0-12.0) Seconds INR (0.9-1.1) APTT (21.0-31.0) Seconds PTT Ratio D-Dimer (0-500) ug/L FEU Sodium (136-145) mmol/L Potassium (3.5-5.1) mmol/L Chloride (98-107) mmol/L Carbon Dioxide (21-32) mmol/L Anion Gap (3-11) BUN (7-18) mg/dl Creatinine (0.6-1.4) mg/dl Est Cr Clr Drug Dosing Est GFR ( Amer) Est GFR (Non-Af Amer) BUN/Creatinine Ratio (10-20) Glucose (70-99) mg/dl POC Glucose 90 78 (70-99) Calcium (8.5-10.1) mg/dl Magnesium (1.8-2.4) mg/dl Total Bilirubin (0.2-1) mg/dl AST (15-37) U/L ALT (12-78) U/L Alkaline Phosphatase (45-117) U/L Troponin I 0.079 H* (0-0.045) ng/ml NT-Pro-B Natriuret Pep (0-1800) pg/ml Total Protein (6.4-8.2) gm/dl Albumin (3.4-5.0) gm/dl Globulin (2.5-4.0) gm/dl Albumin/Globulin Ratio (0.9-2) Lipase (73-393) U/L TSH (0.300-4.500) uIu/ml Urine Color Urine Appearance (Clear) Urine pH (4.5-7.5) Ur Specific Boaz (1.000-1.030) Urine Protein (Negative) Urine Glucose (UA) (Negative) Urine Ketones (Negative) Urine Blood (Negative) Urine Nitrite (Negative) Urine Bilirubin (Negative) Urine Urobilinogen (Negative) Ur Leukocyte Esterase (Negative) Urine WBC (Auto) (0-5) /hpf Urine RBC (Auto) (0-4) /hpf U Hyaline Cast (Auto) (0-5) /lpf U Epithel Cells (Auto) (0-5) /lpf Urine Bacteria (Auto) (Negative) Granular Casts (0) /lpf 07/23/18 07/23/18 07/23/18 Range/Units 20:30 23:01 23:01 WBC (4.8-10.8) K/uL RBC (4.7-6.1) M/uL Hgb (14.0-18.0) g/dL Hct (42-52) % MCV (80-100) fL MCH (25-34) pg MCHC (32-36) g/dL RDW Std Deviation (36.4-46.3) fL RDW Coeff of Skye (11.5-14.5) % Plt Count (130-400) K/uL MPV (7.4-10.4) fL Immature Gran % (Auto) % Neut % (Auto) % Lymph % (Auto) % [place] % (Auto) % Eos % (Auto) % Baso % (Auto) % Immature Gran # (Auto) (0.00-0.02) K/uL Neut # (Auto) (1.4-6.5) K/uL Lymph # (Auto) (1.2-3.4) K/uL [place] # (Auto) (0.11-0.59) K/uL Eos # (Auto) (0-0.5) K/uL Baso # (Auto) (0-0.2) K/uL RBC Morphology PT 11.8 (9.0-12.0) Seconds INR 1.2 H (0.9-1.1) APTT 35.1 H (21.0-31.0) Seconds PTT Ratio 1.3 D-Dimer (0-500) ug/L FEU Sodium (136-145) mmol/L Potassium (3.5-5.1) mmol/L Chloride (98-107) mmol/L Carbon Dioxide (21-32) mmol/L Anion Gap (3-11) BUN (7-18) mg/dl Creatinine (0.6-1.4) mg/dl Est Cr Clr Drug Dosing Est GFR ( Amer) Est GFR (Non-Af Amer) BUN/Creatinine Ratio (10-20) Glucose (70-99) mg/dl POC Glucose (70-99) Calcium (8.5-10.1) mg/dl Magnesium (1.8-2.4) mg/dl Total Bilirubin (0.2-1) mg/dl AST (15-37) U/L ALT (12-78) U/L Alkaline Phosphatase (45-117) U/L Troponin I 0.078 H* (0-0.045) ng/ml NT-Pro-B Natriuret Pep (0-1800) pg/ml Total Protein (6.4-8.2) gm/dl Albumin (3.4-5.0) gm/dl Globulin (2.5-4.0) gm/dl Albumin/Globulin Ratio (0.9-2) Lipase (73-393) U/L TSH (0.300-4.500) uIu/ml Urine Color Dark Yellow Urine Appearance Cloudy A (Clear) Urine pH 5.0 (4.5-7.5) Ur Specific Boaz 1.021 (1.000-1.030) Urine Protein 1+ H (Negative) Urine Glucose (UA) Negative (Negative) Urine Ketones Trace H (Negative) Urine Blood Negative (Negative) Urine Nitrite Negative (Negative) Urine Bilirubin Negative (Negative) Urine Urobilinogen Negative (Negative) Ur Leukocyte Esterase Trace H (Negative) Urine WBC (Auto) 5-10 H (0-5) /hpf Urine RBC (Auto) 0-4 (0-4) /hpf U Hyaline Cast (Auto) >30 H (0-5) /lpf U Epithel Cells (Auto) >30 H (0-5) /lpf Urine Bacteria (Auto) Negative (Negative) Granular Casts 1-5 H (0) /lpf 0507/23/18 07/24/18 Range/Units 23:01 23:54 03:15 WBC 8.69 (4.8-10.8) K/uL RBC 3.81 L (4.7-6.1) M/uL Hgb 12.1 L (14.0-18.0) g/dL Hct 34.4 L (42-52) % MCV 90.3 (80-100) fL MCH 31.8 (25-34) pg MCHC 35.2 (32-36) g/dL RDW Std Deviation 42.9 (36.4-46.3) fL RDW Coeff of Skye 13.2 (11.5-14.5) % Plt Count 148 (130-400) K/uL MPV 9.6 (7.4-10.4) fL Immature Gran % (Auto) 0.3 % Neut % (Auto) 43.8 % Lymph % (Auto) 29.1 % [place] % (Auto) 26.2 % Eos % (Auto) 0.5 % Baso % (Auto) 0.1 % Immature Gran # (Auto) 0.03 H (0.00-0.02) K/uL Neut # (Auto) 3.80 (1.4-6.5) K/uL Lymph # (Auto) 2.53 (1.2-3.4) K/uL [place] # (Auto) 2.28 H (0.11-0.59) K/uL Eos # (Auto) 0.04 (0-0.5) K/uL Baso # (Auto) 0.01 (0-0.2) K/uL RBC Morphology PT (9.0-12.0) Seconds INR (0.9-1.1) APTT (21.0-31.0) Seconds PTT Ratio D-Dimer (0-500) ug/L FEU Sodium (136-145) mmol/L Potassium (3.5-5.1) mmol/L Chloride (98-107) mmol/L Carbon Dioxide (21-32) mmol/L Anion Gap (3-11) BUN (7-18) mg/dl Creatinine (0.6-1.4) mg/dl Est Cr Clr Drug Dosing Est GFR ( Amer) Est GFR (Non-Af Amer) BUN/Creatinine Ratio (10-20) Glucose (70-99) mg/dl POC Glucose 75 86 (70-99) Calcium (8.5-10.1) mg/dl Magnesium (1.8-2.4) mg/dl Total Bilirubin (0.2-1) mg/dl AST (15-37) U/L ALT (12-78) U/L Alkaline Phosphatase (45-117) U/L Troponin I (0-0.045) ng/ml NT-Pro-B Natriuret Pep (0-1800) pg/ml Total Protein (6.4-8.2) gm/dl Albumin (3.4-5.0) gm/dl Globulin (2.5-4.0) gm/dl Albumin/Globulin Ratio (0.9-2) Lipase (73-393) U/L TSH (0.300-4.500) uIu/ml Urine Color Urine Appearance (Clear) Urine pH (4.5-7.5) Ur Specific Boaz (1.000-1.030) Urine Protein (Negative) Urine Glucose (UA) (Negative) Urine Ketones (Negative) Urine Blood (Negative) Urine Nitrite (Negative) Urine Bilirubin (Negative) Urine Urobilinogen (Negative) Ur Leukocyte Esterase (Negative) Urine WBC (Auto) (0-5) /hpf Urine RBC (Auto) (0-4) /hpf U Hyaline Cast (Auto) (0-5) /lpf U Epithel Cells (Auto) (0-5) /lpf Urine Bacteria (Auto) (Negative) Granular Casts (0) /lpf 07/24/18 07/24/18 07/24/18 Range/Units 05:56 06:35 06:35 WBC 8.76 (4.8-10.8) K/uL RBC 3.79 L (4.7-6.1) M/uL Hgb 12.0 L (14.0-18.0) g/dL Hct 34.3 L (42-52) % MCV 90.5 (80-100) fL MCH 31.7 (25-34) pg MCHC 35.0 (32-36) g/dL RDW Std Deviation 43.6 (36.4-46.3) fL RDW Coeff of Skye 13.2 (11.5-14.5) % Plt Count 148 (130-400) K/uL MPV 9.9 (7.4-10.4) fL Immature Gran % (Auto) 0.3 % Neut % (Auto) 41.2 % Lymph % (Auto) 30.7 % [place] % (Auto) 27.1 % Eos % (Auto) 0.7 % Baso % (Auto) 0.0 % Immature Gran # (Auto) 0.03 H (0.00-0.02) K/uL Neut # (Auto) 3.61 (1.4-6.5) K/uL Lymph # (Auto) 2.69 (1.2-3.4) K/uL [place] # (Auto) 2.37 H (0.11-0.59) K/uL Eos # (Auto) 0.06 (0-0.5) K/uL Baso # (Auto) 0.00 (0-0.2) K/uL RBC Morphology PT (9.0-12.0) Seconds INR (0.9-1.1) APTT (21.0-31.0) Seconds PTT Ratio D-Dimer (0-500) ug/L FEU Sodium 140 (136-145) mmol/L Potassium 4.0 (3.5-5.1) mmol/L Chloride 110 H (98-107) mmol/L Carbon Dioxide 23 (21-32) mmol/L Anion Gap 7.0 (3-11) BUN 17 (7-18) mg/dl Creatinine 1.28 (0.6-1.4) mg/dl Est Cr Clr Drug Dosing 47.2 Est GFR ( Amer) 59.2 Est GFR (Non-Af Amer) 51.1 BUN/Creatinine Ratio 13.4 (10-20) Glucose 96 (70-99) mg/dl POC Glucose 98 (70-99) Calcium 8.8 (8.5-10.1) mg/dl Magnesium 1.4 L (1.8-2.4) mg/dl Total Bilirubin (0.2-1) mg/dl AST (15-37) U/L ALT (12-78) U/L Alkaline Phosphatase (45-117) U/L Troponin I (0-0.045) ng/ml NT-Pro-B Natriuret Pep (0-1800) pg/ml Total Protein (6.4-8.2) gm/dl Albumin (3.4-5.0) gm/dl Globulin (2.5-4.0) gm/dl Albumin/Globulin Ratio (0.9-2) Lipase (73-393) U/L TSH (0.300-4.500) uIu/ml Urine Color Urine Appearance (Clear) Urine pH (4.5-7.5) Ur Specific Boaz (1.000-1.030) Urine Protein (Negative) Urine Glucose (UA) (Negative) Urine Ketones (Negative) Urine Blood (Negative) Urine Nitrite (Negative) Urine Bilirubin (Negative) Urine Urobilinogen (Negative) Ur Leukocyte Esterase (Negative) Urine WBC (Auto) (0-5) /hpf Urine RBC (Auto) (0-4) /hpf U Hyaline Cast (Auto) (0-5) /lpf U Epithel Cells (Auto) (0-5) /lpf Urine Bacteria (Auto) (Negative) Granular Casts (0) /lpf 07/24/18 Range/Units 06:35 WBC (4.8-10.8) K/uL RBC (4.7-6.1) M/uL Hgb (14.0-18.0) g/dL Hct (42-52) % MCV (80-100) fL MCH (25-34) pg MCHC (32-36) g/dL RDW Std Deviation (36.4-46.3) fL RDW Coeff of Skye (11.5-14.5) % Plt Count (130-400) K/uL MPV (7.4-10.4) fL Immature Gran % (Auto) % Neut % (Auto) % Lymph % (Auto) % [place] % (Auto) % Eos % (Auto) % Baso % (Auto) % Immature Gran # (Auto) (0.00-0.02) K/uL Neut # (Auto) (1.4-6.5) K/uL Lymph # (Auto) (1.2-3.4) K/uL [place] # (Auto) (0.11-0.59) K/uL Eos # (Auto) (0-0.5) K/uL Baso # (Auto) (0-0.2) K/uL RBC Morphology PT (9.0-12.0) Seconds INR (0.9-1.1) APTT 85.4 H* (21.0-31.0) Seconds PTT Ratio 3.2 D-Dimer (0-500) ug/L FEU Sodium (136-145) mmol/L Potassium (3.5-5.1) mmol/L Chloride (98-107) mmol/L Carbon Dioxide (21-32) mmol/L Anion Gap (3-11) BUN (7-18) mg/dl Creatinine (0.6-1.4) mg/dl Est Cr Clr Drug Dosing Est GFR ( Amer) Est GFR (Non-Af Amer) BUN/Creatinine Ratio (10-20) Glucose (70-99) mg/dl POC Glucose (70-99) Calcium (8.5-10.1) mg/dl Magnesium (1.8-2.4) mg/dl Total Bilirubin (0.2-1) mg/dl AST (15-37) U/L ALT (12-78) U/L Alkaline Phosphatase (45-117) U/L Troponin I (0-0.045) ng/ml NT-Pro-B Natriuret Pep (0-1800) pg/ml Total Protein (6.4-8.2) gm/dl Albumin (3.4-5.0) gm/dl Globulin (2.5-4.0) gm/dl Albumin/Globulin Ratio (0.9-2) Lipase (73-393) U/L TSH (0.300-4.500) uIu/ml Urine Color Urine Appearance (Clear) Urine pH (4.5-7.5) Ur Specific [place] (1.000-1.030) Urine Protein (Negative) Urine Glucose (UA) (Negative) Urine Ketones (Negative) Urine Blood (Negative) Urine Nitrite (Negative) Urine Bilirubin (Negative) Urine Urobilinogen (Negative) Ur Leukocyte Esterase (Negative) Urine WBC (Auto) (0-5) /hpf Urine RBC (Auto) (0-4) /hpf U Hyaline Cast (Auto) (0-5) /lpf U Epithel Cells (Auto) (0-5) /lpf Urine Bacteria (Auto) (Negative) Granular Casts (0) /lpf Imaging Data Radiologist's Impression: Radiology results as stated below per my review and the radiologist's interpretation: XR chest 1V portable CLINICAL HISTORY: dizziness, hypotension COMPARISON STUDY: March 2015 FINDINGS: The heart is the upper limits of normal in size. There is a left subclavian dual-chamber central venous pacemaker. There is no focal pulmonary consolidation. There is no overt failure. There are no pleural effusions.[ IMPRESSION: No active disease in the chest. Electronically signed by: Dorian Clark M.D. 07/23/2018 2:19 PM ECG Data Attestation: I personally reviewed and interpreted this ECG as follows: Indication: other (dizzy) Rate (beats per minute): 60 Findings: + other (prolonged intervals consistent with pacemaker) and + paced rhythm Blood Pressure Blood Pressure Findings: Low blood pressure Blood Pressure Disposition: further management by hospitalist [facility] Narrative Patient here with known prior cardiac history presenting with dizziness and near syncopal event which felt similar to his prior [place]. Patient denies any accompanying chest pain or shortness of breath before, during, or after this event. Patient felt improved here but not back to normal. Patient was hemo dynamically stable. Pacemaker checked on the emergency room and report faxed in. No significant events noted. I did review EMR including prior echo as well as recent cardiology visit. Patient with known cardiomyopathy and EF of 45%. Patient found here to have an elevated troponin, he does not appear in review of EMR that he has chronic troponin elevations. Patient's creatinine is mildly elevated compared to prior at 1.5, however I do not feel at this time given his description of events and cardiac history that his elevated troponin is secondary to renal dysfunction. I do feel patient's condition and presentation today in light of his cardiac history and elevated troponin warrant additional evaluation. Case discussed with hospitalist for additional evaluation and management. Patient is anticoagulated, although this information was not initially relayed to me. According to cardiology notes patient does take aspirin as well as Eliquis daily. I do not suspect PE. No other symptoms to suggest acute vascular etiology. I do not suspect occult infectious etiology. Patient hemodynamically stable in the emergency room, not hypoxic, afebrile. Patient with a normal nonfocal neuro exam at bedside, and no other neurologic symptoms noted as well as no recurrent dizziness. No accompanying headache with events today. I do not suspect acute intracranial pathology at this time. Impression & Plan Dizziness, Elevated troponin, Near syncope Discharge Plan Visit Data *Final* Discharge Date/Time: 07/23/18 16:17 Chief Complaint: Dizziness Stated Complaint: DIZZY, ALMOST PASSED OUT, BP HIGH, PACEMAKER ED Provider: Kalyn Jaime Discharge Problem: Dizziness, Elevated troponin, Near syncope Patient Disposition: Admitted As Inpatient Discharge Instructions Interventions: ED Discharge Assessment Last Done: 07/23/18 16:17 The scribe's documentation has been prepared under my direction and personally reviewed by me in its entirety. I confirm that the note above accurately reflec ts all work, treatment, procedures, and medical decision making performed by me.
[2018-07-24 07:13] LABS: Partial Thromboplastin Ratio 3.2
[2018-07-24 07:15] LABS: Partial Thromboplastin Time 85.4 Seconds (21.0-31.0)
[2018-07-24 07:21] LABS: BUN Creatinine Ratio 13.4 (10-20); Calcium 8.8 mg/dl (8.5-10.1); Creatinine Clr Calc Pharmacy 47.2 ml/min; Est GFR (African American) 59.2; Est GFR (Non-African American) 51.1; Magnesium 1.4 mg/dl (1.8-2.4)
[2018-07-24] MEDS ORDERED: INSULIN ASPART 100 UNITS/ML 3 ML PEN SC SCH ×2 (07:30→17:30)
[2018-07-24] MEDS ORDERED: MAGNESIUM SULFATE / D5W 1 GM/100 ML BAG IV ONE (08:14)
[2018-07-24] MEDS ORDERED: MAGNESIUM OXIDE 400 MG TAB PO SCH (09:00)
[2018-07-24] MEDS ORDERED: HYDROXYCHLOROQUINE SULFATE 200 MG TAB PO SCH (09:00)
[2018-07-24] MEDS ORDERED: ENALAPRIL MALEATE 10 MG TAB PO SCH (09:00)
[2018-07-24] MEDS ORDERED: PANTOprazole 40 MG TAB PO SCH (09:00)
--- NOTE | 2018-07-24 09:20 | Cardiology Consultation ---
Date of Consultation July 24, 2018 Assessment & Plan (1) Elevated troponin: 2. Coronary artery disease - nonobstructive CAD by cath in 2011; no ischemia on nuclear stress in 2016 3. Cardiomyopathy - first documented by echo in September 2017; EF was 40-45% at that time and is currently 40% by echo this admission. 4. Dilated aortic root and ascending aorta - mild/stable 5. Atrial flutter - noted with pacemaker interrogation in June 2017 6. Complete heart block s/p dual chamber pacemaker 7. Hypertension 8. Dyslipidemia - history of adverse effects with statin therapy 8. Mitral regurgitation - nonsevere Patient presented to the ED yesterday after an episode of diaphoresis, nausea/dry heaving, lightheadedness/presyncope, and difficulty ambulating. He did not experience any anginal symptoms or shortness of breath. Symptoms self- resolved after arriving in ED. Troponin was mildly elevated at 0.102 on arrival and has subsequently trended down. ECG shows AV dual paced rhythm. Echocardiogram shows an LV EF of 40% with regional wall motion abnormalities; findings are similar compared to an outpatient study in September 2017. His symptoms are certainly atypical, and given the fact that his troponins have trended downward, there is no urgent indication for cardiac catheterization. Would instead recommend further evaluation of myocardial ischemia with a nuclear stress test. The study could possibly be performed in-patient or in the near future as an outpatient. Will check with the nuclear schedule before making that decision. He has not been taking aspirin therapy as it was discontinued in the Fall of 2017 due to the fact that he is now taking Eliquis given atrial flutter. Would recommend restarting low dose aspirin therapy if there are no contraindications given his underlying coronary artery disease. He previously noted arthritic pain and stiffness with atorvastatin, but would recommend trialing a different statin medication such as Crestor or perhaps Pravastatin to see if the medication would be better tolerated. Continue carvedilol and lisinopril. Would also resume Eliqu is for thromboembolic prophylaxis given his atrial flutter. Patient discussed with Dr. Castellanos who will also be in to see the patient today. Supervising Physician Co-Signing Physician Notes Patient seen and examined, family was in the room. Case discussed with Mary. Agree with above. He describes symptoms which are most compatible with hypotension not ischemia, although he does have nonobstructive coronary disease historically. I do not know that he ever actually had a heart attack, he relates this to around the time he had his pacemaker implanted so likely his symptoms were bradycardia not coronary at that time. In any case his recent symptoms are of uncertain origin he does not recall having prior symptoms. They lasted long enough that we should see more in the way of abnormalities and we do if this was a coronary event. His enzymes have a descending pattern which is worrisome for something having happened prior to admission, probably an episode of hypotension but the cause for that is not clear. I cannot find his pacemaker interrogation but evidently it was done, I need to review that to make sure we could not have missed some type of arrhythmia (such as a tachycardia) which could have caused his symptoms. I think we need a stress test today and will have to do it as a Lexiscan Cardiolite study. I will arrange that. History of Present Illness Reason for Consultation: Elevated troponin Requesting Physician: Dr. Car History of Present Illness Mr. Smith is a pleasant 82-year-old gentleman with a history of complete heart block s/p dual chamber pacemaker, nonobstructive CAD, cardiomyopathy, hypertension, dyslipidemia, dilated aortic root/ascending aorta, and persistent/permanent atrial flutter since 06/21/17. He has had the following studies/procedures: 1. Cardiac catheterization 05/24/2011 (prompted by abnormal stress): Mild luminal irregularities within LAD circumflex, and RCA. Mid RCA 30%. LVEDP 10. No aortic stenosis. EF 60%. 2. Dual-chamber pacemaker placement for third-degree heart block at [facility] [place] 02/24/2011: [place]. 3. Echo 02/22/2015: Normal LV size, wall motion, systolic function. EF 55-60%. Moderate LVH. Moderate left atrial dilation. Type 2 diastolic dysfunction. Mild MR. Aortic root 4.3 cm. Proximal ascending aorta 3.[address] chest (noncontrast) 07/24/2015: No significant dilation of aorta noted by Radiology. 5. Echo 06/27/2016: Normal LV size and systolic function. EF 55-60%. Severe hypokinesis of mid anteroseptum. Severe hypokinesis to akinesis of the distal anterior, distal inferior, apical segments. Septal motion consistent with pacemaker. Moderate LVH. Type 1 diastolic dysfunction. Sclerotic aortic valve. Mild MR. RVSP 24. Aortic root 4.4 cm. 6. Nuclear stress 07/31/2016: No ischemia. Small fixed apical/apical septal perfusion defect likely representing artifact per report. EF 53%. Apical hypokinesis with almost dyskinesis at the apical septum. 7. Echo 09/25/2017: Normal LV size with mildly reduced systolic function. EF 40-45%. Severe hypokinesis to akinesis involving the mid anteroseptum, mid to distal inferoseptum, distal anterior, distal anterolateral, distal inferior, and apical wall segments. Septal motion consistent with pacemaker. Mild LVH. Mildly dilated RV with normal systolic function. Moderate left atrial dilation. Moderate MR. Aortic root 4.5 cm. RVSP 39. Patient states that he was in his usual state of health until yesterday morning around 11 am. He was sitting in his family room when he felt diaphoretic and clammy. He also felt lightheaded and as though he may pass out. He became nauseous and was dry heaving. He did not note any chest, jaw, arm, or back pain. He did not feel short of breath. He got up to walk to the restroom and felt very unsteady/off-balance when walking. He then sat down in his computer room and waited for his daughter to arrive. She came a little after noon and took him to the ED. He states that his symptoms gradually resolved on their own. He is not very active and has been spending most of his time over the last several days visiting his , who has been hospitalized since Friday. He has not experienced any chest discomfort, other anginal type symptoms, or shortness of breath when he does exert himself. He denies orthopnea or PND. He noted some lower extremity edema 2-3 weeks ago and took Lasix for 2 days with resolution of the edema. He denies palpitations. He denies abnormal bleeding such as melena, hematochezia, or hematuria. As noted in HPI. All other ROS are reviewed and otherwise negative at this time. Family history: No known premature CAD. No known aortic disease. Social history: He is and lives with his . They have 4 children and grandchildren. 3 of his children are present in the room today. 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 Denies tobacco abuse. Occasional alcohol. Allergies Allergy/AdvReac Type Severity Reaction Status Date / Time No Known Allergies Allergy Unverified 07/23/18 13:44 Home Medications Home Medications Medication Instructions Recorded Confirmed Type antiox.mv no.[id number] 1 cap PO DAILY 07/23/18 07/23/18 History [I-Caps] enalapril maleate 20 mg PO DAILY 07/23/18 07/23/18 History hydroxychloroquine 200 mg PO DAILY 07/23/18 07/23/18 History insulin glargine [Lantus Solostar 20 unit SUBCUT HS 07/23/18 07/23/18 History U-100 Insulin] metformin 1,000 mg PO BID 07/23/18 07/23/18 History nitroglycerin 0.4 mg SUBLINGUAL DIRECTED 07/23/18 07/23/18 History omeprazole 20 mg PO DAILY 07/23/18 07/23/18 History Patient History Medical History Heart attack Surgical History History of permanent cardiac pacemaker placement Social History Preferred Language: Azeri Communication Ability: Effective 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 EOMs intact. Sclera anicteric. Face is symmetric. No perioral cyanosis. Mucous membranes moist. Neck: Supple, no JVD, no carotid bruits Pulmonary: Normal respiratory effort, clear to auscultation bilaterally Cardiac: Regular rate and rhythm, normal S1 and S2, no gallops, no rubs, no obvious murmurs Extremities: No clubbing, cyanosis, or edema. Pulses 2+ and symmetric Abdomen: Normal bowel sounds, soft, non-tender, no abdominal mass palpated Skin: Normal skin color, turgor, and pigmentation, no rash, no skin lesions Neurological: Oriented to person, place, and time Results & Data Vital Signs (Past 12 Hours) Vital Signs Temp Pulse Pulse Resp BP BP Pulse Ox 07/24/18 06:40 36.8 C 67 22 147/74 H 95 07/24/18 03:21 36.5 C 69 20 145/71 H 95 07/23/18 23:06 36.6 C 68 18 143/71 H 93 Laboratory Results Laboratory Results WBC 8.76 K/uL (4.8-10.8) 07/24/18 06:35 RBC 3.79 M/uL (4.7-6.1) L 07/24/18 06:35 Hgb 12.0 g/dL (14.0-18.0) L 07/24/18 06:35 Hct 34.3 % (42-52) L 07/24/18 06:35 MCV 90.5 fL (80-100) 07/24/18 06:35 MCH 31.7 pg (25-34) 07/24/18 06:35 MCHC 35.0 g/dL (32-36) 07/24/18 06:35 RDW Std Deviation 43.6 fL (36.4-46.3) 07/24/18 06:35 RDW Coeff of Skye 13.2 % (11.5-14.5) 07/24/18 06:35 Plt Count 148 K/uL (130-400) 07/24/18 06:35 MPV 9.9 fL (7.4-10.4) 07/24/18 06:35 Immature Gran % (Auto) 0.3 % 07/24/18 06:35 Neut % (Auto) 41.2 % 07/24/18 06:35 Lymph % (Auto) 30.7 % 07/24/18 06:35 Traill % (Auto) 27.1 % 07/24/18 06:35 Eos % (Auto) 0.7 % 07/24/18 06:35 Baso % (Auto) 0.0 % 07/24/18 06:35 Immature Gran # (Auto) 0.03 K/uL (0.00-0.02) H 07/24/18 06:35 Neut # (Auto) 3.61 K/uL (1.4-6.5) 07/24/18 06:35 Lymph # (Auto) 2.69 K/uL (1.2-3.4) 07/24/18 06:35 Traill # (Auto) 2.37 K/uL (0.11-0.59) H 07/24/18 06:35 Eos # (Auto) 0.06 K/uL (0-0.5) 07/24/18 06:35 Baso # (Auto) 0.00 K/uL (0-0.2) 07/24/18 06:35 RBC Morphology Unremarkable 07/23/18 13:19 PT 11.8 Seconds (9.0-12.0) 07/23/18 23:01 INR 1.2 (0.9-1.1) H 07/23/18 23:01 APTT 85.4 Seconds (21.0-31.0) H* 07/24/18 06:35 PTT Ratio 3.2 07/24/18 06:35 D-Dimer 500 ug/L FEU (0-500) 07/23/18 13:19 Sodium 140 mmol/L (136-145) 07/24/18 06:35 Potassium 4.0 mmol/L (3.5-5.1) 07/24/18 06:35 Chloride 110 mmol/L (98-107) H 07/24/18 06:35 Carbon Dioxide 23 mmol/L (21-32) 07/24/18 06:35 Anion Gap 7.0 (3-11) 07/24/18 06:35 BUN 17 mg/dl (7-18) 07/24/18 06:35 Creatinine 1.28 mg/dl (0.6-1.4) 07/24/18 06:35 Est Cr Clr Drug Dosing 47.2 ml/min 07/24/18 06:35 Est GFR ( Amer) 59.2 07/24/18 06:35 Est GFR (Non-Af Amer) 51.1 07/24/18 06:35 BUN/Creatinine Ratio 13.4 (10-20) 07/24/18 06:35 Glucose 96 mg/dl (70-99) 07/24/18 06:35 POC Glucose 98 (70-99) 07/24/18 05:56 Calcium 8.8 mg/dl (8.5-10.1) 07/24/18 06:35 Magnesium 1.4 mg/dl (1.8-2.4) L 07/24/18 06:35 Total Bilirubin 0.7 mg/dl (0.2-1) 07/23/18 13:19 AST 15 U/L (15-37) 07/23/18 13:19 ALT 21 U/L (12-78) 07/23/18 13:19 Alkaline Phosphatase 92 U/L (45-117) 07/23/18 13:19 Troponin I 0.078 ng/ml (0-0.045) H* 07/23/18 23:01 NT-Pro-B Natriuret Pep 09523 pg/ml (0-1800) H 07/23/18 13:19 Total Protein 7.1 gm/dl (6.4-8.2) 07/23/18 13:19 Albumin 3.8 gm/dl (3.4-5.0) 07/23/18 13:19 Globulin 3.3 gm/dl (2.5-4.0) 07/23/18 13:19 Albumin/Globulin Ratio 1.1 (0.9-2) 07/23/18 13:19 Lipase 60 U/L (73-393) L 07/23/18 13:19 TSH 3.040 uIu/ml (0.300-4.500) 07/23/18 13:19 Urine Color Dark Yellow 07/23/18 20:30 Urine Appearance Cloudy (Clear) A 07/23/18 20:30 Urine pH 5.0 (4.5-7.5) 07/23/18 20:30 Ur Specific [place] 1.021 (1.000-1.030) 07/23/18 20:30 Urine Protein 1+ (Negative) H 07/23/18 20:30 Urine Glucose (UA) Negative (Negative) 07/23/18 20:30 Urine Ketones Trace (Negative) H 07/23/18 20:30 Urine Blood Negative (Negative) 07/23/18 20:30 Urine Nitrite Negative (Negative) 07/23/18 20:30 Urine Bilirubin Negative (Negative) 07/23/18 20:30 Urine Urobilinogen Negative (Negative) 07/23/18 20:30 Ur Leukocyte Esterase Trace (Negative) H 07/23/18 20:30 Urine WBC (Auto) 5-10 /hpf (0-5) H 07/23/18 20:30 Urine RBC (Auto) 0-4 /hpf (0-4) 07/23/18 20:30 U Hyaline Cast (Auto) >30 /lpf (0-5) H 07/23/18 20:30 U Epithel Cells (Auto) >30 /lpf (0-5) H 07/23/18 20:30 Urine Bacteria (Auto) Negative (Negative) 07/23/18 20:30 Granular Casts 1-5 /lpf (0) H 07/23/18 20:30 Diagnostic Findings ECG: AV dual-paced rhythm. CXR: No active disease in chest. Echo: Normal LV size with moderately reduced systolic function. EF 40%. Akinesis involving the apex, mid to distal anterior wall, mid to distal inferior wall, distal inferoseptum, and distal anterolateral wall segments. Hypokinesis involving the mid anteroseptum, mid inferoseptum, and mid anterolateral wall segments. Septal motion consistent with pacemaker. Mild LVH. Mild to moderate MR. Mild aortic root dilatation. Mild pulmonary hypertension suggested with estimated RVSP 48 mmHg. Telemetry: Paced. PVCs.
[2018-07-24] MEDS: D5W AND 1/2NSS 1,000 ML IV SCH (10:54)
[2018-07-24] MEDS ORDERED: REGADENOSON 0.4 MG/5 ML SYR IV ONE (13:58)
[2018-07-24 14:21] LABS: Partial Thromboplastin Ratio 2.6
[2018-07-24 14:37] LABS: Partial Thromboplastin Time 69.5 Seconds (21.0-31.0)
--- NOTE | 2018-07-24 17:51 | Myocardial Perfusion Study ---
Date of Service July 24, 2018 Myocardial Perfusion Study [facility] Myocardial Perfusion Study Report Procedure: 1. Myocardial perfusion study performed in multiple views/images 2. Lexiscan pharmacologic stress ECG Indications: 1. Chest pain 2. Cardiomyopathy Ordering physician: Dr. Castellanos Procedural details: For the stress portion of the study, Lexiscan 0.4 mg was intravenously administered followed by a saline flush. This was followed by 30.3 mCi of technetium 99m Cardiolite, injected at 3:55 p.m. on 07/24/2018. 30 minutes following the injection, imaging of the heart was performed in multiple projections. For the rest portion of the study, 10.2 mCi technetium 99m Cardiolite was injected intravenously at 1:30 p.m. on 07/24/2018. 1 hour following the injection, imaging of the heart was performed in the same projections. Lexiscan stress ECG: Resting ECG demonstrated: Ventricular paced rhythm at 69 bpm Maximum heart rate: 97 bpm Maximal, age-predicted heart rate: 71 % Resting blood pressure: 153/74 mmHg Maximum blood pressure: 156/[address] changes: None Arrhythmia: None Symptoms: Shortness of breath and dizziness Findings: Rotating raw imaging demonstrated no significant lung uptake. There is no significant motion artifact. Heart size appeared normal. Myocardial perfusion demonstrated a large area of mildly reduced uptake involving the distal anterior, distal anterolateral, distal anteroseptum, and apical wall segments which were fixed in post stress and rest imaging, suggesting infarct. There was a large area of moderately reduced uptake involving the base to distal inferolateral, base to distal inferior, and base to distal inferoseptal wall segments, which were fixed in post stress and rest imaging with possible slight reversibility involving the mid inferior wall. This suggests infarct with minimal sania infarct ischemia. Ejection fraction: 42 % Wall motion: Akinesis involving the base to distal inferolateral, base to distal inferior, base to distal inferoseptum, distal anterior, distal anterolateral, distal anteroseptal, and apical wall segments. The mid anterior and mid anterolateral wall segments appeared hypokinetic. No significant transient ischemic dilation. Impression: 1. Abnormal myocardial perfusion study suggesting large RCA +/-circumflex and LAD infarct, with minimal inferior sania-infarct ischemia. 2. Moderately reduced LV systolic function. EF 42%. 3. Multivessel wall motion abnormalities as described above. 4. Indeterminate Lexiscan ECG. 5. Lexiscan induced shortness of breath. 6. Dr. Castellanos was made aware of above findings.
--- NOTE | 2018-07-24 18:34 | Discharge Summary ---
Date of Service July 24, 2018 Admission HPI Per Admitting Provider 82 y/o M Hx HTN, HLD, RA, CAD/FL, A flutter, chronic systolic CHF, DM II, complete heart block - pacer. Presented with an episode of lightheadedness, nausea, dry heaving, diaphoresis and SOB lasting a few minutes. He states that the symptoms were similar to when he had an FL in 2010, however, he also had CP at that time which he did not have today. Pacer interrogation did not demonstrate an etiology for the pt's symptoms. Initial labs show an elevated troponin and mild VANDANA. An EKG is nondiagnostic due to dual-chamber pacing. 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 Family: Adopted Principal Diagnosis no Discharge Exam General Appearance: WD/WN, no apparent distress, Eyes: normal inspection, PERRL, EOMI, sclerae normal ENT: normal ENT inspection, hearing grossly normal, pharynx normal Neck: supple, no adenopathy, thyroid normal, no JVD, no carotid bruits, trachea midline Respiratory/Chest: chest non-tender, normal breath sounds, no respiratory distress, no accessory muscle use, breath sounds, rales, wheezing Cardiovascular: regular rate, rhythm, no JVD, no murmur Abdomen: normal bowel sounds, non tender, soft, no organomegaly, Extremities: normal range of motion, non-tender, normal inspection, no pedal edema, no calf tenderness, normal capillary refill, pelvis stable, joint has no limited range of motion, capillary refill is normal, no cyanosis clubbing Neurologic/Psychiatric: 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 Presented with an episode of lightheadedness, nausea, dry heaving, diaphoresis and SOB lasting a few minutes. He states that the symptoms were similar to when he had an FL in 2010, however, he also had CP at that time which he did not have today. Pacer interrogation did not demonstrate an etiology for the pt's symptoms. Initial labs show an elevated troponin and mild VANDANA. An EKG is nondiagnostic due to dual-chamber pacing. 1) NSTEMI - The pt will be assigned to telemetry. We will trend enzymes. 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 He does not tolerate Statins. 2) DM II - placed on a SS with Lantus 3) HTN/HLD - as above - does not tolerate Statins - cont Enalapril 4) RA - can resume Hydroxychloroquine 5) Mild VANDANA - IVF provided - repeat BMP AM Full cod - Heparin prophylaxis During his hospitalization, patient was on heparin drip, troponin peak, cardiology saw the patient, stress test shows "fixed perfusion defect " per verbal report, which rule out ACS, and cardiology told me it is clear for patient to go home Patient has mild accelerated hypertension, need to follow-up Details please see discharge instruction Total Time Total Time Spent Total Time Spent (In Minutes): 35 Discharge Plan Discharge Items Patient Disposition: Home - Self-Care Reason For Visit: NSTEMI Discharge Diagnosis: possible NSTEMI Condition: Fair Discharge Goals: Decrease discomfort, Diagnostic testing and Improve disease control Activity: Resume your previous activity Non-emergency contact: Primary Care Provider and Matcher Call non-emergency contact if: you have any medication questions Follow-up/Referrals: Katerina Ramos MD [Primary Care Provider] - Diet: Heart Healthy Addtl Provider Instructions: you was having possible cardiac stain with Elevated troponin, stress test negative, primer press operator clear you to go home. you need to follow up with pcp and cardiology for your medical conditions such as coronary artery disease, hypertension, Dyslipidemia Your magnesium was low, I ordered magnesium tablets for 3 days you need to follow up with your primary care physician in 1 week, - take medication as instructed, never overdose or any misuse, or take with alcohol, because misuse of medicine may cause organ damage or , call me, or your primary care physician if have questions of discharge medicaitons. - call your primary care physician, or go to local emergency room if has any fever/chill, chest pain, shortness of breathing, nausea/vomiting/abdominal pain, facial droop/slurry speech/local weakness, or if has any questions. - fall precaution - diet as instructed - you need to follow up with your subspecialist, such as Dr. Castellanos Prescriptions: New magnesium oxide 400 mg (241.3 mg magnesium) Tablet 400 mg PO BID Qty: 6 RF: 0 Continued enalapril maleate 20 mg Tablet 20 mg PO DAILY RF: 0 metformin 1,000 mg Tablet 1,000 mg PO BID RF: 0 nitroglycerin 0.4 mg Tablet, Sublingual 0.4 mg sublingual DIRECTED RF: 0 omeprazole 20 mg Capsule,Delayed Release(Dr/Ec) 20 mg PO DAILY RF: 0 hydroxychloroquine 200 mg Tablet 200 mg PO DAILY RF: 0 Lantus Solostar U-100 Insulin 100 unit/mL (3 mL) Insulin Pen 20 unit SUBCUT HS RF: 0 I-Caps 280-10-2 mg Capsule 1 cap PO DAILY RF: 0 Stand-Alone Forms: My [facility] Discharge Orders: Discharge Order (Routine); Ordered 07/24/18 Ordered By: Chun Marks Admission Data Admit Date/Time: 07/23/18 15:20 Attending Provider: Chun Marks Admit Provider: Yeyo Car Primary Care Provider: Katerina Ramos Other Providers: Yeyo Car ; Bernardo Castellanos Service: Telemetry Other Pending Studies at Discharge: No
== END 2018-07-24 19:10 | disposition home or self-care (01) | DRG 281 ==
LOC: ED 13:00 → SUATTDRO 15:20 → 2S 15:20

== ENCOUNTER 2021-05-25 17:55 | Inpatient (IN) ==
--- NOTE | 2021-05-25 18:20 | Emergency Department Note ---
Impression & Plan DVT (deep venous thrombosis), Anemia, Thrombocytosis ED Provider Note NAME: MARION FANG AGE: 85 SEX: M : 1935 ARRIVES VIA: Walk-In INFORMANT: Patient, ED PROVIDER(S): Rajeev Luu DO CHIEF COMPLAINT: Leg pain HPI: The patient is an 85-year-old male who presented to the emergency department for an evaluation of leg pain. The patient noticed leg swelling and leg pain over the last few days. The patient states that he had an ultrasound ordered as an outpatient by his primary care physician. He was told to come directly to the emergency department from ultrasound for further evaluation. The patient states he has had significant pain that begins in his right groin. It then extends into his right leg. He has a history of elevated platelets as well as a history of low platelets. He is never had a history of DVT. He does have a history of irregular heartbeat at times. He denies having any chest pain. He denies having any shortness of breath with exertion. He states the pain is unilateral and only in the right leg. He denies having any trauma to the leg. He denies having any fever or cough. The patient states otherwise he has been compliant with all of his outpatient medications. The patient denies having any history of cancer. ROS: See above HPI for pertinent positives & negatives. A total of 10 systems reviewed and were otherwise negative. PAST MEDICAL HISTORY: See Below PAST SURGICAL HISTORY: See Below FAMILY HISTORY: See Below SOCIAL HISTORY: See Below HOME MEDICATIONS: See Below ALLERGIES: See Below VITALS: See Below PHYSICAL EXAMINATION: GENERAL: Patient is awake alert in no acute distress patient is resting comfortably and showing no signs of anxiety EYES: The conjunctivae are clear. The pupils are round and reactive. EARS, NOSE, MOUTH AND THROAT: The nose is without any evidence of any deformity. NECK: The neck is nontender and supple. RESPIRATORY: Normal respiratory effort is noted there is no evidence of wheezing rhonchi or rales CARDIOVASCULAR: Regular rate and rhythm noted there no murmurs rubs or gallops normal S1 normal S2. GASTROINTESTINAL: The abdomen is soft. Abdomen is nontender. MUSCULOSKELETAL/EXTREMITIES: There is no evidence of gross deformity full range of motion is noted in the hips and shoulders. SKIN: Skin is warm and dry. Pulses are symmetric in both feet. There is significant swelling and tenderness over the entire right lower extremity. There is significant pedal edema on the right leg. NEUROLOGIC: Patient is awake alert and oriented x3 MEDICAL DECISION MAKING: The patient is an 85-year-old male who presented to the emergency department for an evaluation of lower extremity swelling. The patient was found to have a DVT on an outpatient ultrasound. I reviewed the patient's ultrasound report with him. The DVT appears to be very extensive. He does not have a history of DVT. He does have a history of thrombocytosis. His family member also states that he has a history of thrombocytopenia. I discussed the patient's laboratory and radiographic studies with him. He was not hypotensive hypoxic or tachycardic. He did not complain of any chest pain. The patient does not have a history of primary malignancy. He is unclear where this DVT came from. It could be unprovoked. Because it is so extensive and the patient has no history of this I discussed his case with the on-call [facility] hospitalist. They will evaluate the patient in the emergency department for further management and disposition. Triage Nursing notes reviewed. Prior medical records reviewed Vital Signs: reviewed and remarkable for no significant abnormalities Differential diagnosis: DVT, musculoskeletal, infection, joint effusion, trauma, lymphedema, idiopathic, CHF, as well as other pathologies. ER treatment provided: See below Diagnostics interpreted by me: ECG: EKG was obtained in the emergency department. My interpretation is atrial sensed ventricular paced rhythm at 84 bpm. No [place] beats were noted. Left bundle branch block pattern was favored. This was compared to a tracing from July [id number]. No changes were noted. Cardiac Monitoring: An order was placed for continuous cardiac monitoring. The monitor shows a rate of 78 bpm with paced rhythm. Laboratory studies: As stated above and show below. Imaging studies: See below Consultation(s): I discussed this case with Dr. Rahman who is on-call for the [facility] hospitalist group. He will evaluate the patient in the emergency department. ED COURSE: Procedures: none Critical Care: None Past Med/Surg History Medical History Atrial flutter Benign essential hypertension Cardiomyopathy Complete heart block Controlled diabetes mellitus with diabetic polyneuropathy Coronary artery disease Cystic kidney disease Diabetes mellitus with neurological manifestations, uncontrolled Diabetes with neurologic complications Diabetic peripheral neuropathy Dilated aortic root Dyslipidemia Edema Idiopathic thrombocytopenic purpura (ITP) Leg weakness, bilateral Macular degeneration Mitral regurgitation Nephrolithiasis NSTEMI (non-ST elevated myocardial infarction) Osteoarthritis of right knee PMR (polymyalgia rheumatica) Pneumonia Pulmonary nodule Sleep apnea Subarachnoid hemorrhage Subdural hematoma, post-traumatic Thrombocytopenia Ventral hernia Vitamin B12 deficiency anemia Surgical History H/O arthroscopy of knee right knee - arthritis H/O colonoscopy H/O hernia repair History of cataract surgery bilateral History of permanent cardiac pacemaker placement S/P cardiac cath no stents Family History Brother Cancer Other Adopted Social History Smoking Status: Former smoker Tobacco Type: Cigarettes Age Started Using Tobacco: 4; Age Quit Using Tobacco: 48; packs per day: 3; Second Hand Exposure: Yes (Both parents ); Hx Alcohol Use: Yes Alcohol type: beer Alcohol Intake Frequency: Monthly or Less Hx Substance Use: No Preferred Language: Telugu Communication Ability: Effective Visual Impairment: Limited Hearing Ability: Use of Hearing Aid 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 Layer 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 Required: No Beliefs That Will Affect Care: None marital status: Current Living Situation: Spouse current occupational status: retired How many Children do You have: 4 Feels Safe at Home: Yes Childhood Exposure to Second-Hand Smoke: Yes (Both smoked ) Diet Comment: Regular diet caffeine: Yes (coffee) during the past year weight has: decreased > 10 lbs Dental Care, Regularly: No Physical Activity Frequency: Does not Exercise Physical Activity Frequency Comment: recently limited due to accident (05/10/19) Seatbelt Use: always Sunscreen Use: No Do you think of yourself as: straight/heterosexual Assistive Devices: Cane, Glasses and Hearing Aid - Bilateral Allergies Allergies Allergy/AdvReac Type Severity Reaction Status Date / Time No Known Allergies Allergy Verified 05/25/21 13:12 Home Meds Home Medications Medication Instructions Recorded Confirmed antiox.multivit [id number] 280 1 cap PO DAILY 07/23/18 05/25/21 mg-lutein 10 mg-zeaxanthin 2 mg capsule (I-Caps) metformin 1,000 mg tablet 1,000 mg PO QAM tab 12/21/18 05/25/21 carvedilol 6.25 mg tablet 3.125 mg PO BID tab 03/30/19 05/25/21 romiplostim 125 mcg subcutaneous See Rx Instructions SQ .COMPLEX ea 09/28/19 05/25/21 solution (Nplate) hydroxychloroquine 200 mg tablet 200 mg PO DAILY 12/10/19 05/25/21 insulin glargine 100 unit/mL (3 10 unit SUBCUT HS ml 11/07/20 05/25/21 mL) subcutaneous pen (Lantus Solostar U-100 Insulin) omeprazole 20 mg capsule,delayed 20 mg PO DAILY cap 11/07/20 05/25/21 release isosorbide mononitrate 30 mg 30 mg PO DAILY tab 01/12/21 05/25/21 tablet,extended release 24 hr rosuvastatin 10 mg tablet (Crestor) 5 mg PO QAM tab 01/12/21 05/25/21 oxycodone-acetaminophen 5 mg-325 1 tab PO Q4H PRN 02/16/21 05/25/21 mg tablet nitroglycerin 0.4 mg sublingual 0.4 mg SUBLINGUAL DIRECTED PRN 05/25/21 05/25/21 tablet sertraline 50 mg tablet (Zoloft) 50 mg PO UD 05/25/21 05/25/21 Previous Rx's Medication Instructions Recorded cyanocobalamin (vitamin B-12) 1,000 mcg IM MONTHLY #1 ea 04/30/19 1,000 mcg/mL injection kit pen needle, diabetic 31 gauge x #100 ea 10/28/1907/30" (BD Ultra-Fine Short Pen Needle) silver sulfadiazine 1 % topical 1 applic TOPICAL DAILY #20 g 02/16/21 cream (Silvadene) furosemide 20 mg tablet (Lasix) 40 mg PO DAILY PRN #30 tab 03/08/21 hospital bed rental #1 ea 03/14/21 calcium carbonate 500 mg calcium 500 mg PO DAILY #30 tab 05/23/21 (1,250 mg) tablet cholecalciferol (vitamin D3) 25 25 mcg PO DAILY #90 cap 05/23/21 mcg (1,000 unit) capsule Results & Data (ED) Vital Signs Vital Signs - 24 hr 05/25/21 17:58 05/25/21 18:41 Temperature 37.5 C Temperature Source Temporal Artery Scan Pulse Rate 88 78 Pulse Rate [Apical] 83 Respiratory Rate 20 20 Respiratory Effort / Characteristics Non-Labored Non-Labored Spontaneous Respiratory Depth Normal Normal Respiratory Pattern Regular Blood Pressure 126/78 Blood Pressure [Right Arm] 130/67 Blood Pressure Mean 94 Blood Pressure Mean [Right Arm] 88 Pulse Oximetry 94 94 Oxygen Delivery Method Room Air Room Air Sepsis Recent Fever Within 48 Hours No Sepsis New/Unexplained Change in Mental Status N/A Sepsis Action Taken by Nursing No Action Required Home Medications Current Medication List: was personally reviewed by me Laboratory Data Attestation: I reviewed the patient's lab results. Result diagrams: 05/25/21 18:27 05/25/21 18:27 Lab Results 05/25/21 05/25/21 05/25/21 Range/Units 18:27 18:27 18:27 WBC 19.63 H (4.8-10.8) K/uL RBC 3.51 L (4.7-6.1) M/uL Hgb 10.1 L (14.0-18.0) g/dL Hct 32.1 L (42-52) % MCV 91.5 (80-100) fL MCH 28.8 (25-34) pg MCHC 31.5 L (32-36) g/dL RDW Std Deviation 54.7 H (36.4-46.3) fL RDW Coeff of Skye 16.5 H (11.5-14.5) % Plt Count 701 H (130-400) K/uL MPV 9.1 (7.4-10.4) fL Neutrophils % (Manual) 72.4 % Lymphocytes % (Manual) 12.9 % Monocytes % (Manual) 13.8 % Myelocytes % (Man) 0.9 % Neutrophils # (Manual) 14.21 H (1.4-6.5) K/uL Total Absolute Neuts 14.21 H (1.4-6.5) K/uL Lymphocytes # (Manual) 2.53 (1.2-3.4) K/uL Total Abs Lymphocytes 2.53 (1.2-3.4) K/uL Monocytes # (Manual) 2.71 H (0.11-0.59) K/uL Myelocytes # (Manual) 0.18 H (0-0) K/uL Poikilocytosis Present PT 12.0 (9.0-12.0) Seconds INR 1.1 (0.9-1.1) APTT 33.0 H (21.0-31.0) Seconds PTT Ratio 1.2 Sodium 134 L (136-145) mmol/L Potassium 4.8 (3.5-5.1) mmol/L Chloride 102 (98-107) mmol/L Carbon Dioxide 23 (21-32) mmol/L Anion Gap 9 (3-11) BUN 22 (6-23) mg/dl Creatinine 1.12 (0.6-1.4) mg/dl Est Cr Clr Drug Dosing Not Reportable Est GFR ( Amer) 68.1 ml/min Est GFR (Non-Af Amer) 58.7 ml/min BUN/Creatinine Ratio 19.6 (10-20) Glucose 104 H (70-99(Fasting)) mg/dl Calcium 8.6 (8.5-10.1) mg/dl Total Bilirubin 0.5 (0.2-1.0) mg/dl AST 11 L (13-39) U/L ALT 7 (7-52) U/L Alkaline Phosphatase 101 (34-104) U/L Troponin I < 0.03 (0-0.04) ng/ml Total Protein 6.6 (6.0-8.3) gm/dl Albumin 3.4 (3.4-5.0) gm/dl Globulin 3.2 (2.5-4.0) gm/dl Albumin/Globulin Ratio 1.1 (0.9-2) Lipase 5 L (11-82) U/L SARS-CoV-2, RNA, NAAT (NEGATIVE) 05/25/21 Range/Units 18:27 WBC (4.8-10.8) K/uL RBC (4.7-6.1) M/uL Hgb (14.0-18.0) g/dL Hct (42-52) % MCV (80-100) fL MCH (25-34) pg MCHC (32-36) g/dL RDW Std Deviation (36.4-46.3) fL RDW Coeff of Skye (11.5-14.5) % Plt Count (130-400) K/uL MPV (7.4-10.4) fL Neutrophils % (Manual) % Lymphocytes % (Manual) % Monocytes % (Manual) % Myelocytes % (Man) % Neutrophils # (Manual) (1.4-6.5) K/uL Total Absolute Neuts (1.4-6.5) K/uL Lymphocytes # (Manual) (1.2-3.4) K/uL Total Abs Lymphocytes (1.2-3.4) K/uL Monocytes # (Manual) (0.11-0.59) K/uL Myelocytes # (Manual) (0-0) K/uL Poikilocytosis PT (9.0-12.0) Seconds INR (0.9-1.1) APTT (21.0-31.0) Seconds PTT Ratio Sodium (136-145) mmol/L Potassium (3.5-5.1) mmol/L Chloride (98-107) mmol/L Carbon Dioxide (21-32) mmol/L Anion Gap (3-11) BUN (6-23) mg/dl Creatinine (0.6-1.4) mg/dl Est Cr Clr Drug Dosing Est GFR ( Amer) ml/min Est GFR (Non-Af Amer) ml/min BUN/Creatinine Ratio (10-20) Glucose (70-99(Fasting)) mg/dl Calcium (8.5-10.1) mg/dl Total Bilirubin (0.2-1.0) mg/dl AST (13-39) U/L ALT (7-52) U/L Alkaline Phosphatase (34-104) U/L Troponin I (0-0.04) ng/ml Total Protein (6.0-8.3) gm/dl Albumin (3.4-5.0) gm/dl Globulin (2.5-4.0) gm/dl Albumin/Globulin Ratio (0.9-2) Lipase (11-82) U/L SARS-CoV-2, RNA, NAAT NEGATIVE (NEGATIVE) Imaging Data Radiologist's Impression: Chest X-Ray 05/25/21 18:08 XR chest 1V portable HISTORY: 85 years-old Male Chest Pain acute atypical chest pain COMPARISON: Chest radiograph 07/23/2018 TECHNIQUE: Portable AP view of the chest FINDINGS: Cardiac mediastinal and hilar silhouettes are unchanged. Left subclavian pacer. No pneumothorax, large pleural effusion, airspace consolidation or overt pulmonary edema. Unchanged mild blunting of the costophrenic angles with chronic interstitial coarsening. IMPRESSION: No acute process. ACT 112: Negative or not required by law. The above report was generated using voice recognition software. It may contain grammatical, syntax or spelling errors. Electronically signed by: Francisco J Sim M.D. 05/25/2021 6:22 PM Patient: MARION FANG Admit Date: 05/25/21 MR#: [id number] Address1: [address] [place] [address] Acct ID:[id number] Address2: Date: 1935 [facility] Zip: [place] [address] Age: 85 Location: [place] Sex: M Room/Bed: Att Phy: Lashanda Matson DO Diagnosis: RIGHT LEG PAIN AND SWELLING Roxana Phy: Katerina Ramos MD Service Date: 05/25/21 Fam Phy: Interpreting Phy: Francisco J Sim Admit Phy: Ordering Phy: Lashanda aMtson DO cc: ~ US venous doppler LE RT HISTORY: 85 years-old Male D75.839 - Thrombocytosis, unspecified acute pain and swelling of the right lower extremity COMPARISON: None TECHNIQUE: Multiple real-time sonographic images of the right lower extremity d eep venous structures were obtained assessing grayscale appearance, color and spectral flow. FINDINGS: Occlusive thrombus is noted within the common femoral, femoris, superficial femoral and popliteal veins. Partially occlusive thrombi noted within the posterior tibial and peroneal veins. Findings are presumably acute. Patent greater saphenous vein. Mild subcutaneous edema. IMPRESSION: Extensive deep venous thrombus of the right lower extremity. ACT 112: Negative or not required by law. The above report was generated using voice recognition software. It may contain grammatical, syntax or spelling errors. Electronically signed by: Francisco J iSm M.D. 05/25/2021 5:21 PM Dictated: 05/25/211719 Transcribed: 05/25/211719 Discharge Plan Visit Data Chief Complaint: Abnormal Labs/Diagnostic Testing Stated Complaint: ABN ULTRASOUND, LANGUAGE SPECIALIST DR REFERRED ED Provider: Rajeev Luu Discharge Problem: DVT (deep venous thrombosis), Anemia, Thrombocytosis Patient Disposition: Being Evaluated by Hospitalist Forms Stand Alone Forms: My [facility] Prescriptions Prescriptions: No Action cyanocobalamin (vitamin B-12) 1,000 mcg/mL kit 1,000 mcg IM MONTHLY Qty: 1 RF: 0 (DME) pen needle, diabetic [BD Ultra-Fine Short Pen Needle] 31 gauge x 5/16" needle See Dose Instructions .ROUTE .MEDSUPPLY Qty: 100 RF: 0 (DME) hospital bed rental See Rx Instructions .Route .MEDSUPPLY Qty: 1 RF: 0 calcium carbonate 500 mg calcium (1,250 mg) tablet 500 mg PO DAILY Qty: 30 RF: 0 cholecalciferol (vitamin D3) 25 mcg (1,000 unit) capsule 25 mcg PO DAILY Qty: 90 RF: 0 Lantus Solostar U-100 Insulin 100 unit/mL (3 mL) insulin pen 10 unit SUBCUT HS RF: 0 rosuvastatin [Crestor] 10 mg tablet 5 mg PO QAM RF: 0 isosorbide mononitrate 30 mg tablet extended release 24 hr 30 mg PO DAILY RF: 0 oxycodone-acetaminophen 5-325 mg tablet 1 tab PO Q4H PRN (Reason: Pain) RF: 0 silver sulfadiazine [Silvadene] 1 % cream 1 applic topical DAILY Qty: 20 RF: 0 metformin 1,000 mg tablet 1,000 mg PO QAM RF: 0 carvedilol 6.25 mg tablet 3.125 mg PO BID RF: 0 Nplate 125 mcg recon soln See Rx Instructions SQ .COMPLEX RF: 0 omeprazole 20 mg capsule,delayed release(DR/EC) 20 mg PO DAILY RF: 0 hydroxychloroquine 200 mg tablet 200 mg PO DAILY RF: 0 furosemide [Lasix] 20 mg tablet 40 mg PO DAILY PRN (Reason: edema) Qty: 30 RF: 0 I-Caps 280-10-2 mg Capsule 1 cap PO DAILY RF: 0 nitroglycerin 0.4 mg tablet, sublingual 0.4 mg sublingual DIRECTED PRN (Reason: Chest Pain) RF: 0 sertraline [Zoloft] 50 mg tablet 50 mg PO UD RF: 0 Referrals Referrals: Katerina Ramos MD [Primary Care Provider] -
--- NOTE | 2021-05-25 18:24 | XRay Report ---
XR chest 1V portable HISTORY: 85 years-old Male Chest Pain acute atypical chest pain COMPARISON: Chest radiograph 07/23/2018 TECHNIQUE: Portable AP view of the chest FINDINGS: Cardiac mediastinal and hilar silhouettes are unchanged. Left subclavian pacer. No pneumothorax, larg e pleural effusion, airspace consolidation or overt pulmonary edema. Unchanged mild blunting of the c ostophrenic angles with chronic interstitial coarsening. IMPRESSION: No acute process. ACT 112: Negative or not required by law. The above report was generated using voice recognition software. It may contain grammatical, syntax o r spelling errors. Electronically signed by: Francisco J Sim M.D. 05/25/2021 6:22 PM
[2021-05-25 18:36] LABS: Hematocrit (blood only) 32.1 % (42-52); Hemoglobin 10.1 g/dL (14.0-18.0); Mean Corpuscular Hemoglobin 28.8 pg (25-34); Mean Corpuscular Hgb Conc 31.5 g/dL (32-36); Mean Corpuscular Volume 91.5 fL (80-100); Mean Platelet Volume 9.1 fL (7.4-10.4); Platelet Count 701 K/uL (130-400); RDW Coefficient of Variation 16.5 % (11.5-14.5); RDW Standard Deviation 54.7 fL (36.4-46.3); Red Blood Count 3.51 M/uL (4.7-6.1); White Blood Count 19.63 K/uL (4.8-10.8)
[2021-05-25 18:58] LABS: ALC (manual) 2.53 K/uL (1.2-3.4); ANC (manual) 14.21 K/uL (1.4-6.5); Lymphocytes # (manual) 2.53 K/uL (1.2-3.4); Lymphocytes % (manual) 12.9 %; Monocytes # (manual) 2.71 K/uL (0.11-0.59); Monocytes % (manual) 13.8 %; Myelocytes # (manual) 0.18 K/uL (0-0); Myelocytes % (manual) 0.9 %; Neutrophils # (manual) 14.21 K/uL (1.4-6.5); Neutrophils % (manual) 72.4 %; Poikilocytosis Present; Troponin I < 0.03 ng/ml (0-0.04)
[2021-05-25 19:06] LABS: INR 1.1 (0.9-1.1); Partial Thromboplastin Ratio 1.2
[2021-05-25 19:08] LABS: Alanine Aminotransferase 7 U/L (7-52); Albumin Globulin Ratio 1.1 (0.9-2); Albumin Level 3.4 gm/dl (3.4-5.0); Alkaline Phosphatase 101 U/L (34-104); Anion Gap 9 (3-11); Aspartate Aminotransferase 11 U/L (13-39); BUN Creatinine Ratio 19.6 (10-20); Bilirubin,Total 0.5 mg/dl (0.2-1.0); Blood Urea Nitrogen 22 mg/dl (6-23); Calcium 8.6 mg/dl (8.5-10.1); Carbon Dioxide 23 mmol/L (21-32); Chloride 102 mmol/L (98-107); Est GFR (African American) 68.1 ml/min; Est GFR (Non-African American) 58.7 ml/min; Globulin 3.2 gm/dl (2.5-4.0); Glucose 104 mg/dl (70-99(Fasting)); Lipase 5 U/L (11-82); Potassium 4.8 mmol/L (3.5-5.1); Sodium 134 mmol/L (136-145); Total Protein 6.6 gm/dl (6.0-8.3)
--- NOTE | 2021-05-25 19:17 | History & Physical Report ---
Date of Service May 25, 2021 Assessment & Plan (1) DVT (deep venous thrombosis): Plan: This is an 85-year-old male with a history of bone marrow failure syndrome ([place] 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 Garvey at [facility], hypertension, ID-type 2 diabetes, subarachnoid hemorrhage 2-3 years ago following a fall on ice, paroxysmal atrial flutter, complete heart block status post pacemaker placement, polycystic kidney disease, CAD who presented to [facility] for evaluation of RIGHT leg pain at recommendation of PCP, subsequently found to have evidence of an extensive RLE DVT. DVT of the RLE -- no previous history of VTE Clinically, patient reporting increased swelling and pain in the right lower extremity over the last several days w/ decreased ambulation;has recent history of hip fracture in 03/2021 Venous Doppler obtained in the ED demonstrating occlusive thrombus within the common femoral, femoris, superficial femoral and popliteal veins, as well as partially occlusive thrombi within the posterior tibial and peroneal veins of the right lower extremity No evidence of arterial compromise/compartment syndrome on exam Thrombocytosis to 700 appreciated on admission Preliminarily initiate Eliquis 10 mg twice daily for the next 7 days; if continuation is recommended, thereafter switch to 5mg b.i.d. Consult hematology, Dr. Ugarte; appreciate insight/recommendations with anticoagulation versus candidacy for IVC filter going forward given history of ITP/bone marrow failure requiring Nplate injections History of subdural hematoma 2 to 3 years ago also noted. (2) Thrombocytosis: Plan: Thrombocytosis -- in context of a known history of thrombocytopenia requiring NPlate injections Thrombocytosis to 701 appreciated on arrival, last value 397 on 05/17/2021 Patient with chronic history of bone marrow failure and ?recurrent ITP requiring Nplate injections; he says that his last injection was approximately 2 weeks ago, and normally he gets them every single week Suspect partially reactive in the setting of acute thrombosis and recent Nplate injection Monitor for now, trend CBC daily (3) Bone marrow failure: Plan: Bone Marrow Failure Syndrome / History of ITP Follows with Dr. Garvey of [facility] for bone marrow failure syndrome (type unknown) -- has known h/o thrombocytopenia but also ?recurrent ITP Hematology consulted, as above, in setting of DVT to aid with anticoagulation in setting of h/o thrombocytopenia (requiring NPlat injections) versus recommendations for eval for IVC filter Trend CBC, as above (4) History of ITP: Plan: As above During admission in 02/2021, per review of notes, patient did require IVIG and steroids Not currently on any immunosuppressives (5) Diabetes mellitus with neurological manifestations, uncontrolled: Plan: Insulin-dependent type 2 diabetes History noted. On Lantus 10 units nightly at home and metformin Reduce Lantus to 6 units while here SSI; carb correction 40 ACHS glucose checks; BSG goal 110-140 Recheck A1c in a.m. (6) Subarachnoid hemorrhage: Plan: History of subarachnoid hemorrhage approximately 2 to 3 years ago after falling on ice, no subsequent neurologic sequelae History noted in context of DVT, anticoagulation (7) Complete heart block: Plan: History of Atrial Flutter, Complete heart block -- status post pacemaker placement History noted, ECG consistent with such. Follows with [facility] Continue carvedilol (8) Atrial flutter: Plan: As above, noted (9) Mood disorder: Plan: Continue sertraline (10) Coronary artery disease: Plan: History noted, has had NSTEMIs in past. Continue rosuvastatin, antiHTNs - carvedilol, isosorbide Last TTE in 02/2021: Mildly dilated LV, EF 50 to 55%, small area of apical hypokinesis, severe asymmetric hypertrophy involving the basal septum, sclerotic aortic valve without stenosis (11) Benign essential hypertension: Plan: Continue carvedilol, isosorbide (12) Ambulatory dysfunction: Plan: With reported history of falls at home in the past, as well as within the last couple weeks Patient ambulates with walker Appreciate PT, OT consult during admission, as well as needs assessment andif pertinentdispositional planning Plan: Code: DNR/DNI, discussed directly with patient with daughter in the room Diet: Heart healthy, carb consistent Disposition: MedSurg Prophylaxis: Eliquis ongoing for DVT, as above History of Present Illness Primary Care Provider: Katerina Ramos MD This is an 85-year-old male with a history of bone marrow failure syndrome [place] 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 Garvey at [facility], hypertension, ID-type 2 diabetes, subarachnoid hemorrhage 2-3 years ago following a fall on ice, complete heart block status post pacemaker placement, polycystic kidney disease, CAD who presented to [facility] for evaluation of RIGHT leg pain at recommendation of PCP. He says that his rig ht lower extremity has been swollen and painful over the last several days. He has a history of nondisplaced R hip fracture in 03/2021 following a fall; during this hospitalization, he was apparently noted to have thrombocytopenia and was started on IV steroids and given IVIG x 5 days. Venous Doppler ordered by his primary care physician revealed extensive DVT, for which he was told to come to the emergency room. He denies any chest pain, palpitations, shortness of breath. Denies any recent travel / long car rides / periods of immobilization, though he says "I haven't been walking as much." He endorses a fall at home a few weeks ago and has h/o falls in the past. Lives at home with , and daughter notes he "pretty much lives out of a single room." No recent RX changes. No h/o VTE. No tobacco, EtOH, or recreational drug use history. In the ED, patient was observed to have normal vital signs. Admission labs significant for leukocytosis to 19.6 with neutrophilic predominance, persistent normocytic anemia 10.1, thrombocytosis 701, normal troponin, negative COVID-19. Venous Doppler of the right lower extremity revealed extensive DVT within the common femoral, femoris, superficial femoral, and popliteal veins. Chest x-ray normal. Allergies Allergy/AdvReac Type Severity Reaction Status Date / Time No Known Allergies Allergy Verified 05/25/21 13:12 Home Medications Medication Instructions Recorded Confirmed Type antiox.multivit 10-[id number] 280 1 cap PO QAM 07/23/18 05/25/21 History mg-lutein 10 mg-zeaxanthin 2 mg capsule (I-Caps) metformin 1,000 mg tablet 1,000 mg PO QAM tab 12/21/18 05/25/21 History carvedilol 6.25 mg tablet 3.125 mg PO BID tab 03/30/19 05/25/21 History cyanocobalamin (vitamin B-12) 1,000 mcg IM MONTHLY #1 ea 04/30/19 05/25/21 Rx 1,000 mcg/mL injection kit pen needle, diabetic 31 gauge x #100 ea 10/28/19 05/25/21 Rx 5/16" (BD Ultra-Fine Short Pen Needle) insulin glargine 100 unit/mL (3 10 unit SUBCUT HS ml 11/07/20 05/25/21 History mL) subcutaneous pen (Lantus Solostar U-100 Insulin) omeprazole 20 mg capsule,delayed 20 mg PO QAM cap 11/07/20 05/25/21 History release oxycodone-acetaminophen 5 mg-325 1 tab PO Q4H PRN 02/16/21 05/25/21 History mg tablet silver sulfadiazine 1 % topical 1 applic TOPICAL DAILY #20 g 02/16/21 05/25/21 Rx cream (Silvadene) furosemide 20 mg tablet (Lasix) 40 mg PO DAILY PRN #30 tab 03/08/21 05/25/21 Rx hospital bed rental #1 ea 03/14/21 05/25/21 Rx calcium carbonate 500 mg calcium 500 mg PO QAM 05/25/21 05/25/21 History (1,250 mg) tablet cholecalciferol (vitamin D3) 25 25 mcg PO QAM 05/25/21 05/25/21 History mcg (1,000 unit) capsule isosorbide mononitrate 60 mg 30 mg PO HS 05/25/21 05/25/21 History tablet,extended release 24 hr nitroglycerin 0.4 mg sublingual 0.4 mg SUBLINGUAL DIRECTED PRN 05/25/21 05/25/21 History tablet rosuvastatin 20 mg tablet 10 mg PO QAM 05/25/21 05/25/21 History sertraline 50 mg tablet (Zoloft) 50 mg PO UD 05/25/21 05/25/21 History Past Med/Surg History Medical History Atrial flutter Benign essential hypertension Cardiomyopathy Complete heart block Controlled diabetes mellitus with diabetic polyneuropathy Coronary artery disease Cystic kidney disease Diabetes mellitus with neurological manifestations, uncontrolled Diabetes with neurologic complications Diabetic peripheral neuropathy Dilated aortic root Dyslipidemia Edema Idiopathic thrombocytopenic purpura (ITP) Leg weakness, bilateral Macular degeneration Mitral regurgitation Nephrolithiasis NSTEMI (non-ST elevated myocardial infarction) Osteoarthritis of right knee PMR (polymyalgia rheumatica) Pneumonia Pulmonary nodule Sleep apnea Subarachnoid hemorrhage Subdural hematoma, post-traumatic Thrombocytopenia Ventral hernia Vitamin B12 deficiency anemia Surgical History H/O arthroscopy of knee right knee - arthritis H/O colonoscopy H/O hernia repair History of cataract surgery bilateral History of permanent cardiac pacemaker placement S/P cardiac cath no stents Family History Brother Cancer Other Adopted Social History Smoking Status: Former smoker Tobacco Type: Cigarettes Age Started Using Tobacco: 4; Age Quit Using Tobacco: 48; packs per day: 3; Second Hand Exposure: Yes (Both parents ); Hx Alcohol Use: No Hx Substance Use: Yes Preferred Language: Kyrgyz Communication Ability: Effective Communication Ability Comment: Hearing aids Visual Impairment: Limited Hearing Ability: Use of Hearing Aid Mortar Mixer Required: No Beliefs That Will Affect Care: Latter Day marital status: Current Living Situation: Spouse Current Living Situation Comment: living in own home current occupational status: retired How many Children do You have: 3 Other Information That Helps Us Care for You: No Feels Safe at Home: Yes Safety Concerns: Feels Safe At This Time Childhood Exposure to Second-Hand Smoke: Yes (Both smoked ) Diet Comment: Regular diet caffeine: Yes (coffee) during the past year weight has: decreased > 10 lbs Dental Care, Regularly: No Physical Activity Frequency: Does not Exercise Physical Activity Frequency Comment: recently limited due to accident (05/10/19) Seatbelt Use: always Sunscreen Use: No Do you think of yourself as: straight/heterosexual Assistive Devices: Glasses, Hearing Aid - Bilateral and Walker Review of Systems Review of Systems: as per HPI Physical Exam Physical Exam: General: Well-appearing 85-year-old male no acute distress Cardiac: Normal rate and regular rhythm; S1 and S2 present with no murmurs, rubs, or gallops. Pulmonary: Good respiratory effort with symmetric expansion of the chest. No use of accessory muscles. Lungs were clear to auscultation bilaterally with no crackles or wheezes. Abdominal: Normoactive bowel sounds. Abdomen was soft, nondistended, and non- tender to palpation. Extremities: Visual examination of the lower extremities does reveal an ap preciably more swollen right lower extremity when compared to the left. Compared to the left, the right lower extremity does feel more warm to the touch. There is 3+ pitting edema on the right, 1+ on the left. Dorsalis pedis pulse is 2+ on the right. Capillary refill under 2 seconds on the right. Ankle strength 5 out of 5. Homans negative. Psych: Well-developed, well-nourished, appropriately dressed for occasion. Behavior is cooperative and appropriate. Affect is WNL. Insight is appropriate. Results & Data Results & Data ([facility]) Vital Signs (Past 12 Hours) Vital Signs Temp Pulse Pulse Resp BP BP Pulse Ox 05/25/21 18:41 78 83 20 130/67 94 05/25/21 17:58 37.5 C 88 20 126/78 94 Supervising Physician Co-Signing Physician Notes Patient seen and examined, chart reviewed, case discussed with Juan Jenkins and I agree with the assessment and plan as above except as otherwise noted General: A&Ox3. NAD. Cooperative. HEENT: Atraumatic, normocephalic. Vision/hearing grossly intact. Pulm: CTAB A&P. -wheezes, -rales, -rhonchi. Symmetrical chest rise. No increase in work of breathing. No respiratory distress. Cardiac: RRR, -mrg. Radial pulses intact and symmetrical. Abdominal: Nontender, nondistended, soft. BS present. Extremities: Mild/trace left lower extremity edema, right lower extremity edema significantly greater than left 2+-3+. sensation intact to soft touch in hands and feet bilaterally. Ankle dorsiflexion/plantarflexion intact bilaterally. PT pulses intact bilaterally. No cerulea dolens appreciated on exam, no signs of limb ischemia. Labs and images reviewed Harjinder is an 85-year-old male who presents with extensive DVT of the right lower extremity with extension into the common femoral. Patient does have a history of subarachnoid hemorrhage, this was between 2 and 3 years ago and was the result of a fall on ice. History of ITP treated with injections, platelets actually elevated on admission. He denies any other bleeding problems in the past, and notes he was actually recommended to be on a blood thinner for his heart previously but deferred this as he had had friends that did not do well on them. Denies other past history of blood clots/PE. Venous Doppler on admission shows occlusive thrombus in common femoral, femoral, superficial femoral, and popliteal with partially occlusive thrombi in posterior tibial and peroneal veins of the right lower extremity. No signs of leg ischemia on exam. No indication for clot retrieval/catheter thrombolytic at this time. No absolute contraindications, will start on anticoagulation, but consult for additional recommendations prior to discharge given patient's history of thrombocytopenia. ?DOAC vs lovenox vs filter, given his history Resident Activity Tracking Resident Involvement: Resident Care Provided Care Provided: Adult Hospital Medicine (1) DVT (deep venous thrombosis) Affected thrombotic vein of extremity: femoral Chronicity: acute DVT location: lower extremity Laterality: right Qualified Code(s): I82.411 - Acute embolism and thrombosis of right femoral vein
[2021-05-25] MEDS ORDERED: ACETAMINOPHEN 325 MG TAB PO PRN (19:48)
[2021-05-25] MEDS ORDERED: GLUCOSE 10 TABS/TUBE PO PRN (21:43)
[2021-05-25] MEDS ORDERED: GLUCOSE 40% GEL 15 GM TUBE PO PRN (21:43)
[2021-05-25] MEDS ORDERED: CARBOHYDRATES FOR HYPOGLYCEMIA PO PRN (21:43)
[2021-05-25] MEDS ORDERED: DEXTROSE 50% 50 ML SYRINGE IV PRN (21:43)
[2021-05-25] MEDS ORDERED: FUROSEMIDE 40 MG TAB PO PRN (21:43)
[2021-05-25] MEDS ORDERED: GLUCAGON FOR INJ 1 MG VIAL SQ PRN (21:43)
[2021-05-25] MEDS ORDERED: NITROGLYCERIN SL 0.4 MG/TAB TAB SL PRN (21:43)
[2021-05-25] MEDS: INSULIN ASPART PER UNIT SC SCH (22:47)
[2021-05-25] MEDS: INSULIN GLARGINE SOLOSTAR 100 UNITS/ML 3 ML PEN SC SCH (22:52)
[2021-05-25] MEDS: APIXABAN 5 MG TABLET PO SCH (22:53)
[2021-05-25] MEDS: carvediloL 3.125 MG TAB PO SCH (22:53)
[2021-05-25] MEDS: ISOSORBIDE MONO EXTENDED REL 30 MG TABCR PO SCH (22:53)
[2021-05-26] MEDS: oxyCODONE/ACETAMINOPHEN 5mg/325mg TAB PO PRN ×2 (03:17→15:04)
--- NOTE | 2021-05-26 06:45 | Hospitalist Progress Note ---
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 aGrvey at [facility], hypertension, ID-type 2 diabetes, subarachnoid hemorrhage 2-3 years ago following a fall on ice, paroxysmal atrial flutter, complete heart block status post pacemaker placement, polycystic kidney disease, CAD who presented to [facility] for evaluation of RIGHT leg pain at recommendation of PCP, subsequently found to have evidence of an extensive RLE DVT in addition to Pulmonary emboli of the R lung without R heart strain. Pulmonary Emboli and DVT of the RLE -No previous history of VTE -Recent hip fracture in Mar 2021 with worsening mobilization as a result -?Etiology of immobilization vs Nplate infusions -Venous doppler 05/25/21 notable for extensive venous thrombus of the RLE including the common femoral, femoris, superficial femoral, and popliteal veins. Partially occlusive thrombi also noted in the posterior tibial and peroneal veins. -CTA chest 05/26/21 notable for PE's in the R upper, middle, and lower lobes. No R heart strain. Notable for scattered subcentimeter pulmonary nodules that have not significantally changed since 2016 chest CTA. -Notable Thrombocytosis >700 on admission -Patient notable for receiving NPlate infusions for history of ITP -- see below -Started initially on Eliquis 10mg BID, received 2 doses -Discussed with Anticoagulation Clinic Dr. Ugarte -- Will switch patient to Lovenox 70mg BID for therapeutic treatment of DVT and PE's -Of note, patient with history of Subdural Hematoma 2-3 years prior - continue to monitor for symptoms concerning for head bleed Ambulatory dysfunction with Frequent falls -Hip Fracture Mar 2021 with deconditioning -Multifactorial likely - PE, Autonomic dysregulation from DM2, deconditioning from recent hip fx, orthostatic hypotension -Will check orthostatics when able to appropriately bear weight on RLE -Appreciate PT/OT during admission -Patient ambulates with walker History of ITP and Bone Marrow Failure -Follows with Oncology/Hematology Dr. Garvey at [facility] -Weekly Nplate infusions (last infusion roughly 2 weeks prior to admission per patient) for close to 4 years now -Thrombocytosis >700 on admission -Discussed with Dr. Garvey -- recommends continuing to monitor CBC and platelet count -Would defer starting ASA therapy at this time as patient has a history of rebounding thrombocytosis and thrombocytopenia -Typical WBC 10-15, current >20 suspect secondary to extensive DVT and PE's -Typical Hgb 8-11, current stable at 9.2 Type 2 DM -Continue Basal bolus and SSI -Hold Metformin -HgbA1c 7.1 Hx Subarachnoid Hemorrhage -2-3 years prior after falling on ice -Monitor while on anticoagulation as noted above Hx Atrial Flutter, Complete Heart Block, Hypertension, CAD -S/P pacemaker placement -Continue Carvedilol -Continue Imdur -Continue Crestor Mood Disorder -on 05/25 - Started on sertraline by PCP at 25mgs and to increase after one week to 50mgs. - Continue Sertraline 25mg QD Code: DNR/DNI, discussed directly with patient with daughter in the room by admitting provider Diet: Heart healthy, carb consistent Disposition: MedSurg Prophylaxis: Lovenox - transitioned from Eliquis (2) DVT (deep venous thrombosis): (3) Bone marrow failure: (4) History of ITP: Admission and Anticipated Discharge Date Admission Date: May 25, 2021 Supervising Physician Co-Signing Physician Notes Resident Physician Supervision Note: I independently interviewed and examined the patient and verified the briscoe history and physical, reviewed labs and image studies and agree with resident Dr. Grimm findings and care plan. Subjective Patient evaluated at the bedside this AM. Patient notes that he has been having swelling in his legs for the past couple of weeks, however, yesterday around 4PM he noticed that his RLE had "blown up" in size and tenderness. He currently notes some tenderness mostly in his R thigh. Denies any discomfort in his calf. He also notes that at home he does fall a fair amount with his most recent fall being 1 week ago after having a bowel movement. He notes the most recent fall prior to that was 2 weeks ago, he is unsure of the cause. He denies any fever, chills, SOB, chest pain, chest pressure, abdominal pain, NVD, constipation. Review of Systems Review of Systems: All systems reviewed & are unremarkable except as noted in Subjective Physical Exam Constitutional: WD/WN, vitals as above no acute distress Neck: trachea midline, no thyromegaly Respiratory: normal respiratory effort, lungs clear to auscultation Cardiovascular: Rate/Rhythm: regular rate (paced ) Extremities: no calf tenderness (Notable for R thigh tenderness) Chest (Breasts): Chest: + pacemaker Gastrointestinal (Abdomen): normal bowel sounds, soft, nontender, no hepatosplenomegaly Musculoskeletal: 3+ edema to the knee of the RLE Tenderness to palpation of the R thigh Results & Data Results & Data ([facility]) Vital Signs (Past 12 Hours) Vital Signs Temp Pulse Pulse Resp BP Pulse Ox 05/25/21 22:50 93 H 134/69 05/25/21 21:33 36.6 C 102 H 19 146/78 H 95 05/25/21 20:00 101 H 20 135/66 95 Resident Activity Tracking Resident Involvement: Resident Care Provided Care Provided: Adult Hospital Medicine (1) DVT (deep venous thrombosis) Affected thrombotic vein of extremity: femoral Chronicity: acute DVT location: lower extremity Laterality: right Qualified Code(s): I82.411 - Acute embolism and thrombosis of right femoral vein
[2021-05-26 07:20] LABS: Mean Corpuscular Hgb Conc 32.9 g/dL (32-36); Platelet Count 716 K/uL (130-400)
[2021-05-26 07:46] LABS: BUN Creatinine Ratio 20.2 (10-20); Calcium 8.2 mg/dl (8.5-10.1); Creatinine Clr Calc Pharmacy 43.1 ml/min; Est GFR (African American) 63.3 ml/min; Est GFR (Non-African American) 54.6 ml/min; Potassium 4.4 mmol/L (3.5-5.1)
[2021-05-26 07:51] LABS: ALC (manual) 1.31 K/uL (1.2-3.4); ANC (manual) 14.93 K/uL (1.4-6.5); Acanthocytes 1+; Hemoglobin 9.2 g/dL (14.0-18.0); Lymphocytes # (manual) 1.31 K/uL (1.2-3.4); Lymphocytes % (manual) 6.1 %; Mean Corpuscular Hemoglobin 29.9 pg (25-34); Mean Corpuscular Volume 90.9 fL (80-100); Monocytes # (manual) 4.91 K/uL (0.11-0.59); Monocytes % (manual) 22.8 %; Myelocytes # (manual) 0.39 K/uL (0-0); Myelocytes % (manual) 1.8 %; Neutrophils # (manual) 14.93 K/uL (1.4-6.5); Neutrophils % (manual) 69.3 %; RDW Coefficient of Variation 16.5 % (11.5-14.5); RDW Standard Deviation 54.5 fL (36.4-46.3); Red Blood Count 3.08 M/uL (4.7-6.1); Spherocytes 1+; White Blood Count 21.55 K/uL (4.8-10.8)
[2021-05-26 08:07] LABS: Estimated Average Glucose 157 mg/dl; Hemoglobin A1C 7.1 % (4.5-5.6)
--- NOTE | 2021-05-26 08:13 | Electrocardiogram Report ---
Test Reason : Blood Pressure : / mmHG Vent. Rate : 084 BPM Atrial Rate : 084 BPM P-R Int : 202 ms QRS Dur : 178 ms QT Int : 440 ms P-R-T Axes : 026 -65 108 degrees QTc Int : 519 ms Poor data quality, interpretation may be adversely affected Atrial-sensed ventricular-paced rhythm Abnormal ECG When compared with ECG of 23-JUL-2018 13:13, Vent. rate has increased BY 24 BPM Confirmed by Gary Victor ([id number]) on 05/26/2021 8:12:38 AM Referred By: Lashanda Matson Confirmed By:Gary Victor
[2021-05-26] MEDS: INSULIN ASPART PER UNIT SC SCH ×4 (08:27→20:41)
[2021-05-26] MEDS: CALCIUM CARBONATE 1250MG TAB PO SCH (08:30)
[2021-05-26] MEDS: CHOLECALCIFEROL 1,000 UNITS 25 MCG TAB PO SCH (08:30)
[2021-05-26] MEDS: PANTOprazole 40 MG TAB PO SCH (08:30)
[2021-05-26] MEDS: APIXABAN 5 MG TABLET PO SCH (08:30)
[2021-05-26] MEDS: SERTRALINE HCL 50 MG TABLET PO SCH (08:31)
[2021-05-26] MEDS: ROSUVASTATIN CALCIUM 10 MG TAB PO SCH (08:31)
[2021-05-26] MEDS: carvediloL 3.125 MG TAB PO SCH ×2 (08:37→21:05)
[2021-05-26] MEDS ORDERED: SERTRALINE HCL 50 MG TABLET PO SCH (09:00)
[2021-05-26] MEDS ORDERED: [UNRECOGNIZED DRUG - REMARK] PO SCH (09:00)
[2021-05-26] MEDS ORDERED: OPTIRAY 320 125ml IV ONE (10:02)
--- NOTE | 2021-05-26 11:02 | CT Scan Report ---
CHEST CTA for PULMONARY ARTERIES CT DOSE: 416.03 mGy.cm HISTORY: Shortness of breath. Atypical chest pain. Right lower extremity DVT. TECHNIQUE: Multiaxial CT images of the chest were performed following the intravenous administration of contrast to evaluate the pulmonary arteries. Maximal intensity projection images were also obtaine d. A dose lowering technique was utilized adhering to the principles of ALARA. COMPARISON STUDY: Chest CT 04/10/2015. FINDINGS: Moderate anterior wedge-shaped compression deformity at T12 which is likely chronic. A 1.5 cm hypodense lesion within the left hepatic lobe. This favors a cyst. The visualized spleen and adren al glands are unremarkable. Partially visualized hyperdense renal lesions are incompletely characteri zed on this study. Normal esophagus. No mediastinal hilar lymphadenopathy. The heart is mildly enlarg ed. No pleural or pericardial effusions. Left-sided pacemaker identified. A few old, healed left-side d rib fractures. Calcified plaque within the normal caliber abdominal aorta. Moderate coronary artery calcifications are present. A few small filling defects within the segmental and subsegmental pulmon cassie arteries of the right upper lobe, right middle lobe, and right lower lobe consistent with pulmona ry emboli. Small peripheral filling defects seen within the right upper lobar pulmonary artery consis tent with a pulmonary embolus. No evidence for right-sided heart strain. No pneumothorax. Mild emphys sahra. Stable 3 mm nodule within the left lung apex on image 230. Stable partially calcified granuloma within the superior segment of the left upper lobe measuring 9 mm. Small peripheral density within th e left lung base on image 78 measures 1.4 cm. Small linear scarlike density within the periphery the right upper lobe. This remains stable. A few subcentimeter pulmonary nodules within the right upper l obe posteriorly are also unchanged. The central airways are patent. IMPRESSION: 1. Scattered right-sided pulmonary emboli as described above. No evidence for right-sided heart strai n. 2. Emphysema. 3. Scattered subcentimeter pulmonary nodules as described above. These are not significantly changed compared to the 2016 chest CTA. ACT 112: Negative or not required by law. Electronically signed by: Mauricio Choudhary M.D. 05/26/2021 11:01 AM
[2021-05-26] MEDS: SILVER SULFADIAZINE 1% CR 50 GM JAR TOP SCH (15:04)
[2021-05-26] MEDS: ENOXAPARIN 80 MG/0.8 ML SYR SQ SCH (21:05)
[2021-05-26] MEDS: ISOSORBIDE MONO EXTENDED REL 30 MG TABCR PO SCH (21:05)
[2021-05-26] MEDS: INSULIN GLARGINE SOLOSTAR 100 UNITS/ML 3 ML PEN SC SCH (21:06)
[2021-05-27 05:47] LABS: Mean Corpuscular Hgb Conc 31.7 g/dL (32-36); Platelet Count 797 K/uL (130-400)
[2021-05-27 06:13] LABS: BUN Creatinine Ratio 21.4 (10-20); Calcium 9.2 mg/dl (8.5-10.1); Creatinine Clr Calc Pharmacy 40.7 ml/min; Est GFR (Non-African American) 50.9 ml/min; Potassium 4.7 mmol/L (3.5-5.1)
[2021-05-27 06:44] LABS: ALC (manual) 2.32 K/uL (1.2-3.4); ANC (manual) 16.88 K/uL (1.4-6.5); Acanthocytes 1+; Eosinophils % (manual) 0.9 %; Hematocrit (blood only) 29.3 % (42-52); Hemoglobin 9.3 g/dL (14.0-18.0); Lymphocytes # (manual) 2.32 K/uL (1.2-3.4); Lymphocytes % (manual) 10.4 %; Mean Corpuscular Volume 91.3 fL (80-100); Neutrophils # (manual) 16.88 K/uL (1.4-6.5); Neutrophils % (manual) 75.7 %; Ovalocytes 1+; Polychromasia 1+; RDW Coefficient of Variation 16.4 % (11.5-14.5); RDW Standard Deviation 54.8 fL (36.4-46.3); Red Blood Count 3.21 M/uL (4.7-6.1)
--- NOTE | 2021-05-27 06:57 | Hospitalist Progress Note ---
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 Garvey at [facility], hypertension, ID-type 2 diabetes, subarachnoid hemorrhage 2-3 years ago following a fall on ice, paroxysmal atrial flutter, complete heart block status post pacemaker placement, polycystic kidney disease, CAD who presented to [facility] for evaluation of RIGHT leg pain at recommendation of PCP, subsequently found to have evidence of an extensive RLE DVT in addition to Pulmonary emboli of the R lung without R heart strain. Pulmonary Emboli and DVT of the RLE -No previous history of VTE -Recent hip fracture in Mar 2021 with worsening mobilization as a result -?Etiology of immobilization vs Nplate infusions -Venous doppler 05/25/21 notable for extensive venous thrombus of the RLE including the common femoral, femoris, superficial femoral, and popliteal veins. Partially occlusive thrombi also noted in the posterior tibial and peroneal veins. -CTA chest 05/26/21 notable for PE's in the R upper, middle, and lower lobes. No R heart strain. Notable for scattered subcentimeter pulmonary nodules that have not significantly changed since 2016 chest CTA. -Started initially on Eliquis 10mg BID, received 2 doses -Discussed with Anticoagulation Clinic Dr. Ugarte -- Lovenox preferred in this situation -Continue Lovenox 70mg BID for therapeutic treatment of DVT and PE's -Of note, patient with history of Subdural Hematoma 2-3 years prior - continue to monitor for symptoms concerning for head bleed Ambulatory dysfunction with Frequent falls -Hip Fracture Mar 2021 with deconditioning -Multifactorial likely - PE, Autonomic dysregulation from DM2, deconditioning from recent hip fx, orthostatic hypotension -Orthostatics positive with change in BP from 138/68 laying to 117/60 standing. -Appreciate PT/OT during admission -Patient ambulates with walker History of ITP and Bone Marrow Failure -Follows with Oncology/Hematology Dr. Garvey ([phone]) at [facility] -Weekly Nplate infusions (last infusion roughly 2 weeks prior to admission per patient) for close to 4 years now -Thrombocytosis >700 on admission -- continues to trend upwards at 797 this AM -Discussed with Dr. Garvey -- recommends continuing to monitor CBC and platelet count -Would defer starting ASA therapy at this time as patient has a history of rebounding thrombocytosis and thrombocytopenia -Typical WBC 10-15, current elevation likely secondary to DVT and PE's -Typical Hgb 8-11 Type 2 DM -Continue Basal bolus and SSI -Hold Metformin -HgbA1c 7.1 Hx Subarachnoid Hemorrhage -2-3 years prior after falling on ice -Monitor while on anticoagulation as noted above Hx Atrial Flutter, Complete Heart Block, Hypertension, CAD -S/P pacemaker placement -Continue Carvedilol -Continue Imdur -Continue Crestor Mood Disorder -sertraline 25mgs for a wk (started 05/25) then 50mgs daily. Code: DNR/DNI, discussed directly with patient with daughter in the room by admitting provider Diet: Heart healthy, carb consistent Disposition: MedSurg Prophylaxis: Lovenox - transitioned from Eliquis (2) DVT (deep venous thrombosis): (3) Bone marrow failure: (4) History of ITP: Admission and Anticipated Discharge Date Admission Date: May 25, 2021 Supervising Physician Co-Signing Physician Notes Resident Physician Supervision Note: I independently interviewed and examined the patient and verified the briscoe history and physical, reviewed labs and image studies and agree with resident Dr. Grimm findings and care plan. Subjective Patient evaluated at the bedside this AM. Noting over all he feels roughly the same with continued discomfort in his RLE. He denies feeling SOB, chest pain, chest pressure, abdominal pain, fever, chills. Review of Systems Review of Systems: All systems reviewed & are unremarkable except as noted in Subjective Physical Exam Constitutional: WD/WN, vitals as above no acute distress Neck: trachea midline, no thyromegaly Respiratory: normal respiratory effort, lungs clear to auscultation Cardiovascular: Rate/Rhythm: + irregularly irregular Extremities: no calf tenderness (Notable for R thigh tenderness) Chest (Breasts): Chest: + pacemaker Gastrointestinal (Abdomen): normal bowel sounds, soft, nontender, no hepatosplenomegaly Results & Data Results & Data ([facility]) Vital Signs (Past 12 Hours) Vital Signs Temp Pulse Resp BP Pulse Ox 05/26/21 22:10 36.6 C 94 H 16 155/65 H 98 05/26/21 21:03 92 H 131/70 94 Resident Activity Tracking Resident Involvement: Resident Care Provided Care Provided: Adult Hospital Medicine (1) DVT (deep venous thrombosis) Affected thrombotic vein of extremity: femoral Chronicity: acute DVT location: lower extremity Laterality: right Qualified Code(s): I82.411 - Acute embolism and thrombosis of right femoral vein
[2021-05-27] MEDS: INSULIN ASPART PER UNIT SC SCH ×4 (08:17→21:13)
[2021-05-27] MEDS: carvediloL 3.125 MG TAB PO SCH ×2 (08:24→21:46)
[2021-05-27] MEDS: CALCIUM CARBONATE 1250MG TAB PO SCH (08:25)
[2021-05-27] MEDS: SERTRALINE HCL 50 MG TABLET PO SCH (08:25)
[2021-05-27] MEDS: ROSUVASTATIN CALCIUM 10 MG TAB PO SCH (08:26)
[2021-05-27] MEDS: CHOLECALCIFEROL 1,000 UNITS 25 MCG TAB PO SCH (08:26)
[2021-05-27] MEDS: ENOXAPARIN 80 MG/0.8 ML SYR SQ SCH ×2 (08:26→21:21)
[2021-05-27] MEDS: PANTOprazole 40 MG TAB PO SCH (08:26)
[2021-05-27] MEDS: SILVER SULFADIAZINE 1% CR 50 GM JAR TOP SCH (08:27)
[2021-05-27] MEDS: INSULIN GLARGINE SOLOSTAR 100 UNITS/ML 3 ML PEN SC SCH (21:14)
[2021-05-27] MEDS: ISOSORBIDE MONO EXTENDED REL 30 MG TABCR PO SCH (21:46)
--- NOTE | 2021-05-28 06:03 | Hospitalist Progress Note ---
Date of Service May 28, 2021 Assessment & Plan (1) Pulmonary emboli: Plan: This is an 85-year-old male with a history of bone marrow failure syndrome (per [facility] notes), thrombocytopenia 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 Garvey at [facility], hypertension, ID-type 2 diabetes, subarachnoid hemorrhage 2-3 years ago following a fall on ice, paroxysmal atrial flutter, complete heart block status post pacemaker placement, polycystic kidney disease, CAD who presented to [facility] for evaluation of RIGHT leg pain at recommendation of PCP, subsequently found to have evidence of an extensive RLE DVT in addition to Pulmonary emboli of the R lung without R heart strain. Pulmonary Emboli and DVT of the RLE -No previous history of VTE -Recent hip fracture in Mar 2021 with worsening mobilization as a result -Suspect etiology is likely multifactorial: immobilization with added hypercoagulability with Nplate infusions? -Venous doppler 05/25/21 notable for extensive venous thrombus of the RLE including the common femoral, femoris, superficial femoral, and popliteal veins. Partially occlusive thrombi also noted in the posterior tibial and peroneal veins. -CTA chest (05/26/21) -- asymptomatic -- notable for PE's in the R upper, middle, and lower lobes. No R heart strain. Notable for scattered subcentimeter pulmonary nodules that have not significantly changed since 2016 chest CTA. -Notable thrombocytosis >700 on admission in setting of regular NPlate injections for ITP -Initially started on Eliquis 10mg BID --> transitioned to Lovenox at recommendation of Dr. Ugarte, clinic -Continue Lovenox 70mg BID for therapeutic treatment of DVT and PEs -- will defer to outpatient chief i dispatcher for length given the mixed picture of provoked/unprovoked in this case -Of note, patient with history of SDH 2-3 years ago - continue to monitor for symptoms concerning Persistent Thrombocytosis -- at 700 on admission, now trending >800 -Appreciated on arrival in setting of the above and known h/o ITP, bone marrow failure syndrome -Suspect multifactorial etiology: NPlate injections and partially reactive from clot burden -- however, outstanding concern for malignancy (e.g., CML) still considered -Weekend team spoke with Dr. Garvey, patient's primary chief i dispatcher -- advised against ASA at this time -Will order iron panel to further characterize -Consider bone marrow biopsy as outpatient if indicated Ambulatory Dysfunction with Frequent falls -Hip Fracture Mar 2021 with deconditioning -Multifactorial likely - PE, Autonomic dysregulation from DM2, deconditioning from recent hip fx, orthostatic hypotension -Orthostatics positive with change in BP from 138/68 laying to 117/60 standing -Patient ambulates with walker -Appreciate PT/OT during admission: PT recommending SNF, family preferring he comes home with HH -- will continue to discuss. Concerns regarding ambulatory status and now being on a blood thinner. History of ITP and Bone Marrow Failure -Follows with Oncology/Hematology Dr. Garvey ([phone]) at [facility] -Weekly Nplate infusions (last infusion roughly 2 weeks prior to admission per patient) for approx. ~4 years [employer] -Thrombocytosis >700 on admission -- continues to trend uptrend >800 -Discussed with Dr. Garvey while inpatient -- recommends continuing to monitor CBC and platelet count -Would defer starting ASA therapy at this time as patient has a history of rebounding thrombocytosis and thrombocytopenia -Typical WBC 10-15, current elevation likely secondary to DVT and PE's -Typical Hgb 8-11 Type 2 DM -Continue Basal bolus and SSI -Hold Metformin -HgbA1c 7.1 History of Subarachnoid Hemorrhage -2-3 years prior after falling on ice -Monitor while on anticoagulation as noted above History of Atrial Flutter, Complete Heart Block, Hypertension, CAD -S/P pacemaker placement -Continue Carvedilol, Imdur, Crestor Mood Disorder -Continue Sertraline 75mg QD Code: DNR/DNI, discussed directly with patient with daughter in the room by admitting provider Diet: Heart healthy, carb consistent Disposition: MedSurg Prophylaxis: Lovenox (2) DVT (deep venous thrombosis): (3) Bone marrow failure: (4) History of ITP: Admission and Anticipated Discharge Date Admission Date: May 25, 2021 Supervising Physician Co-Signing Physician Notes I personally examined the patient and verified all briscoe points of history and exam, discussed case, and agree with decision making with Dr Jenkins feeling a bit better - leg pain better and swelling better. walked better today than any day previous. really would like to go home not rehab vitals noted nad heent nc at mmm breathing unlabored no accessory muscles good effort skin no rashes no pallor or icterus RLE edematous but nontender DVT/PE - etiology not entirely clear - could relate to Nplate or marrow issues primarily, also could be spontaneous simply given age and VTE being a relatively common condition - ie - for now would consider treatment to be "open ended" for a suspected ongoing clotting problem that became manifest with current VTE even t, rather than a clot that warrants treatment. lovenox. weakness - really wants to go home - showed really significant progress w PT to where now it appears reasonable to go home if that is his preference (ie rehab would probably be a better choice still, but not at all unreasonable to go home given his progress, safety awareness, and support system) - will follow progress into tomorrow as he continues to evaluate his options otherwise as above Subjective Feeling well this morning. Denies any pain. Says that the most discomfort is above the knee on the right side, but does not even bother him too much. Denies any new numbness or tingling. Denies any chest pain, palpitations, shortness of breath. Looking forward to working with PT today Review of Systems Review of Systems: As per HPI Physical Exam Physical Exam: General: Well-appearing 85-year-old male no acute distress Cardiac: Normal rate and regular rhythm; S1 and S2 present with no murmurs, rubs, or gallops. Pulmonary: Good respiratory effort with symmetric expansion of the chest. No use of accessory muscles. Lungs were clear to auscultation bilaterally with no crackles or wheezes. Abdominal: Normoactive bowel sounds. Abdomen was soft, nondistended, and non- tender to palpation. Extremities: Visual examination of the lower extremities reveals more swollen right lower extremity when compared to the left. There is 1+ pitting edema on the right. Dorsalis pedis pulse is 2+ on the right. Capillary refill under 2 seconds on the right. Ankle strength 5 out of 5. Homans negative. Psych: Well-developed, well-nourished, appropriately dressed for occasion. Behavior is cooperative and appropriate. Affect is WNL. Insight is appropriate. Results & Data Results & Data ([facility]) Vital Signs (Past 12 Hours) Vital Signs Temp Pulse Resp BP BP Pulse Ox 05/27/21 22:40 36.9 C 84 16 108/61 96 05/27/21 21:45 83 126/72 Resident Activity Tracking Resident Involvement: Resident Care Provided Care Provided: Adult Hospital Medicine (1) DVT (deep venous thrombosis) Affected thrombotic vein of extremity: femoral Chronicity: acute DVT location: lower extremity Laterality: right Qualified Code(s): I82.411 - Acute embolism and thrombosis of right femoral vein
[2021-05-28] MEDS: ROSUVASTATIN CALCIUM 10 MG TAB PO SCH (07:23)
[2021-05-28] MEDS: PANTOprazole 40 MG TAB PO SCH (07:23)
[2021-05-28] MEDS: CALCIUM CARBONATE 1250MG TAB PO SCH (07:23)
[2021-05-28] MEDS: SERTRALINE HCL 50 MG TABLET PO SCH (07:23)
[2021-05-28] MEDS: carvediloL 3.125 MG TAB PO SCH ×2 (07:24→21:09)
[2021-05-28] MEDS: CHOLECALCIFEROL 1,000 UNITS 25 MCG TAB PO SCH (07:24)
[2021-05-28] MEDS: SILVER SULFADIAZINE 1% CR 50 GM JAR TOP SCH (07:24)
[2021-05-28] MEDS: ENOXAPARIN 80 MG/0.8 ML SYR SQ SCH ×2 (07:24→21:08)
[2021-05-28] MEDS: oxyCODONE/ACETAMINOPHEN 5mg/325mg TAB PO PRN (07:26)
[2021-05-28 07:36] LABS: BUN Creatinine Ratio 23.2 (10-20); Calcium 8.1 mg/dl (8.5-10.1); Creatinine Clr Calc Pharmacy 37.2 ml/min; Est GFR (African American) 52.9 ml/min; Est GFR (Non-African American) 45.6 ml/min; Potassium 3.9 mmol/L (3.5-5.1)
[2021-05-28] MEDS: INSULIN ASPART PER UNIT SC SCH ×4 (09:10→21:07)
[2021-05-28 09:17] LABS: Hematocrit (blood only) 27.4 % (42-52); Hemoglobin 8.6 g/dL (14.0-18.0); Mean Corpuscular Hemoglobin 28.6 pg (25-34); Mean Corpuscular Hgb Conc 31.4 g/dL (32-36); Mean Platelet Volume 9.3 fL (7.4-10.4); Platelet Count 806 K/uL (130-400); RDW Coefficient of Variation 16.7 % (11.5-14.5); RDW Standard Deviation 54.9 fL (36.4-46.3); Red Blood Count 3.01 M/uL (4.7-6.1)
[2021-05-28 09:57] LABS: ANC (manual) 13.01 K/uL (1.4-6.5); Acanthocytes 1+; Basophils # (manual) 0.17 K/uL (0-0.2); Basophils % (manual) 0.9 %; Eosinophils # (manual) 0.17 K/uL (0-0.5); Eosinophils % (manual) 0.9 %; Monocytes # (manual) 3.87 K/uL (0.11-0.59); Monocytes % (manual) 20.9 %; Neutrophils # (manual) 13.01 K/uL (1.4-6.5); Neutrophils % (manual) 70.3 %; Ovalocytes 1+
[2021-05-28 10:34] LABS: Ferritin 132.4 ng/ml (8-388)
[2021-05-28] MEDS: INSULIN GLARGINE SOLOSTAR 100 UNITS/ML 3 ML PEN SC SCH (21:08)
[2021-05-28] MEDS: ISOSORBIDE MONO EXTENDED REL 30 MG TABCR PO SCH (21:09)
--- NOTE | 2021-05-29 06:27 | Discharge Summary ---
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 Garvey at [facility], hypertension, ID-type 2 diabetes, subarachnoid hemorrhage 2-3 years ago following a fall on ice, complete heart block status post pacemaker placement, polycystic kidney disease, CAD who presented to [facility] for evaluation of RIGHT leg pain at recommendation of PCP. He says that his right lower extremity has been swollen and painful over the last several days. He has a history of nondisplaced R hip fracture in 03/2021 following a fall; during this hospitalization, he was apparently noted to have thrombocytopenia and was started on IV steroids and given IVIG x 5 days. Venous Doppler ordered by his primary care physician revealed extensive DVT, for which he was told to come to the emergency room. He denies any chest pain, palpitations, shortness of breath. Denies any recent travel / long car rides / periods of immobilization , though he says "I haven't been walking as much." He endorses a fall at home a few weeks ago and has h/o falls in the past. Lives at home with , and daughter notes he "pretty much lives out of a single room." No recent RX changes. No h/o VTE. No tobacco, EtOH, or recreational drug use history. In the ED, patient was observed to have normal vital signs. Admission labs significant for leukocytosis to 19.6 with neutrophilic predominance, persistent normocytic anemia 10.1, thrombocytosis 701, normal troponin, negative COVID-19. Venous Doppler of the right lower extremity revealed extensive DVT within the common femoral, femoris, superficial femoral, and popliteal veins. Chest x-ray normal. Admission Exam Per Admitting Provider General: Well-appearing 85-year-old male no acute distress Cardiac: Normal rate and regular rhythm; S1 and S2 present with no murmurs, rubs, or gallops. Pulmonary: Good respiratory effort with symmetric expansion of the chest. No use of accessory muscles. Lungs were clear to auscultation bilaterally with no crackles or wheezes. Abdominal: Normoactive bowel sounds. Abdomen was soft, nondistended, and non- tender to palpation. Extremities: Visual examination of the lower extremities does reveal an appreciably more swollen right lower extremity when compared to the left. Compared to the left, the right lower extremity does feel more warm to the touch. There is 3+ pitting edema on the right, 1+ on the left. Dorsalis pedis pulse is 2+ on the right. Capillary refill under 2 seconds on the right. Ankle strength 5 out of 5. Homans negative. Psych: Well-developed, well-nourished, appropriately dressed for occasion. Behavior is cooperative and appropriate. Affect is WNL. Insight is appropriate. Principal Diagnosis DVT of the RLE Pulmonary emboli Thrombocytosis Discharge Exam General: Well-appearing 85-year-old male no acute distress Cardiac: Normal rate and regular rhythm; S1 and S2 present with no murmurs, rubs, or gallops. Pulmonary: Good respiratory effort with symmetric expansion of the chest. No use of accessory muscles. Lungs were clear to auscultation bilaterally with no crackles or wheezes. Abdominal: Normoactive bowel sounds. Abdomen was soft, nondistended, and non- tender to palpation. Extremities: Visual examination of the lower extremities reveals more swollen right lower extremity when compared to the left. There is 1+ pitting edema on the right. Dorsalis pedis pulse is 2+ on the right. Capillary refill under 2 seconds on the right. Ankle strength 5 out of 5. Homans negative. Psych: Well-developed, well-nourished, appropriately dressed for occasion. Behavior is cooperative and appropriate. Affect is WNL. Insight is appropriate. Discharge Data Allergies Allergy/AdvReac Type Severity Reaction Status Date / Time No Known Allergies Allergy Verified 05/25/21 13:12 Consultations 05/25/21 19:08 ED Decision to Admit Stat Ordered Studies 05/26/21 08:52 CT angio chest PE protocol Urgent IMPRESSION: 1. Scattered right-sided pulmonary emboli as described above. No evidence for right-sided heart strain. 2. Emphysema. 3. Scattered subcentimeter pulmonary nodules as described above. These are not significantly changed compared to the 2016 chest CTA. 05/25/2021 Doppler Venous RLE FINDINGS: Occlusive thrombus is noted within the common femoral, femoris, superficial femoral and popliteal veins. Partially occlusive thrombi noted within the posterior tibial and peroneal veins. Findings are presumably acute. Patent greater saphenous vein. Mild subcutaneous edema. IMPRESSION: Extensive deep venous thrombus of the right lower extremity. Hospital Course (1) Pulmonary emboli: This is an 85-year-old male with a history of bone marrow failure syndrome (per [facility] [place]), thrombocytopenia 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 Garvey at [facility], hypertension, ID-type 2 diabetes, subarachnoid hemorrhage 2-3 years ago following a fall on ice, paroxysmal atrial flutter, complete heart block status post pacemaker placement, polycystic kidney disease, CAD who presented to [facility] for evaluation of RIGHT leg pain at recommendation of PCP, subsequently found to have evidence of an extensive RLE DVT in addition to pulmonary emboli of the R lung without R heart strain. Pulmonary Emboli and DVT of the RLE -No previous history of VTE -Recent hip fracture in Mar 2021 with worsening mobilization as a result -Suspect etiology is likely multifactorial: immobilization in setting of recent hip fracture (R) with added hypercoagulability with Nplate infusions? -Venous doppler 05/25/21 notable for extensive venous thrombus of the RLE including the common femoral, femoris, superficial femoral, and popliteal veins. Partially occlusive thrombi also noted in the posterior tibial and peroneal veins. -CTA chest (05/26/21) -- asymptomatic -- notable for PE's in the R upper, middle, and lower lobes. No R heart strain. Notable for scattered subcentimeter pulmonary nodules that have not significantly changed since 2016 chest CTA. -Notable thrombocytosis >700 on admission in setting of regular NPlate injections for ITP -Initially started on Eliquis 10mg BID --> transitioned to Lovenox at recomme ndation of Dr. Ugarte, clinic -Continue Lovenox 70mg BID for therapeutic treatment of DVT and PEs -- will defer to outpatient bushler for length given the mixed picture of provok ed/unprovoked in this case -Of note, patient with history of SDH 2-3 years ago - continue to monitor for symptoms concerning Persistent Thrombocytosis -- between 700-800 throughout admission -Appreciated on arrival in setting of the above and known h/o ITP, bone marrow failure syndrome -Suspect multifactorial etiology: NPlate injections and partially reactive from clot burden -- however, outstanding concern for malignancy (e.g., CML) still considered -Weekend team spoke with Dr. Garvey, patient's primary bushler -- advised against ASA at this time, noted this pattern was c/w NPlate injections -Consider bone marrow biopsy as outpatient if indicated Ambulatory Dysfunction with Frequent falls -Hip Fracture Mar 2021 with deconditioning -Multifactorial likely - PE, Autonomic dysregulation from DM2, deconditioning from recent hip fx, orthostatic hypotension -Orthostatics positive with change in BP from 138/68 laying to 117/60 standing -Patient ambulates with walker -Appreciate PT/OT during admission: PT recommending inpatient rehab. Patient adamant about going home despite extensive discussion on r/b/a to inpatient rehab. He understands the risks, including continued falls, while on the anticoagulant. He wishes to return home and continue with HH -- he will require at-home PT/OT History of ITP and Bone Marrow Failure -Follows with Oncology/Hematology Dr. Garvey ([phone]) at [facility] -Weekly Nplate infusions (last infusion roughly 2 weeks prior to admission per patient) for approx. ~4 years [employer] -Thrombocytosis 800-900 throughout admission -Discussed with Dr. Garvey while inpatient -- recommends continuing to monitor CBC and platelet count -Would defer starting ASA therapy at this time as patient has a history of rebounding thrombocytosis and thrombocytopenia -Typical WBC 10-15, current elevation likely secondary to DVT and PE's -Typical Hgb 8-11: during his stay, H&H levels remained consistent within this range Type 2 DM -Continue Basal bolus and SSI -Hold Metformin -HgbA1c 7.1 History of Subarachnoid Hemorrhage -2-3 years prior after falling on ice -Monitor while on anticoagulation as noted above History of Atrial Flutter, Complete Heart Block, Hypertension, CAD -S/P pacemaker placement -Continue Carvedilol, Imdur, Crestor Mood Disorder -Continue Sertraline 75mg QD Code: DNR/DNI, discussed directly with patient with daughter in the room by admitting provider (2) DVT (deep venous thrombosis): (3) Bone marrow failure: (4) History of ITP: Total Time Total Time Spent Total Time Spent (In Minutes): 30 Discharge Plan Discharge Items Patient Disposition: Home - Home Health Services Reason For Visit: DVT Discharge Diagnosis: deep venous thrombosis of the right leg pulmonary emboli Activity: Per Instructions section Non-emergency contact: Primary Care Provider and Oncologist Call non-emergency contact if: you have any medication questions, your symptoms worsen, your pain is worsening and your temperature is above 101 Follow-up/Referrals: Katerina Ramos MD [Primary Care Provider] - Diet: Regular Addtl Attending Provider Instructions: You were seen in [facility] for evaluation of right leg pain. Upon your arrival here, you underwent several tests to determine the cause of this pain. You are discovered to have an extensive clot within the veins of your right leg. You were started on a blood thinner (anticoagulation) to help treat this clot. At the recommendation of one of our bushler, you also underwent a chest scan, which did discover clots within the lungs as well. Given these findings, you will have to use anticoagulation/blood thinners for t he next_. Right now, it is thought that your clots likely formed from decreased movement following her hip fracture, as well as potentially from an extra "clotting burden" from your Nplate injections. Given this suspicion, we did speak with Dr. Garvey during your stay hereit will be important for you to follow-up with him closely after discharge. Prior to your discharge, we discussed that inpatient rehabilitation was recommended for you by our physical and occupational therapists to help with mobility, restrengthening. After extensive discussions about the risks, benefits, alternatives to this, you preferred to resume your care at home. Please remember that you are now on a blood thinner and are now more prone to bleeding, such as after a fall. Please continue working with PT, OT at home or in their offices to work on mobility, restrengthening, and increasing your functionality after discharge. Upon your discharge, please note the following medication sepideh nges/additions/changes: - Continue Lovenox 70mg, injected subcutaneously TWICE DAILY (once in AM, once in PM - 12 hours apart ideally), until directed otherwise by your bushler Please follow-up with your primary care physician within 1 week to review this visit. Please also make an appointment to review this visit with Dr. Garvey as soon as you are able. In the interim, if you experience any worsening like pain, chest pain, palpitations, shortness of breath, lightheadedness, dizziness, fever, chills, night sweats, or other worrisome symptoms, please report to the emergency room for immediate evaluation. It is a pleasure for caring for you while you are here and we wish you all the best in your recovery. Pending Studies at Discharge: No Stand-Alone Forms: My [facility], Smoking Cessation Medications and DC Order Prescriptions: No Action cyanocobalamin (vitamin B-12) 1,000 mcg/mL kit 1,000 mcg IM MONTHLY Qty: 1 RF: 0 (DME) pen needle, diabetic [BD Ultra-Fine Short Pen Needle] 31 gauge x 5/16" needle See Dose Instructions .ROUTE .MEDSUPPLY Qty: 100 RF: 0 (DME) hospital bed rental See Rx Instructions .Route .MEDSUPPLY Qty: 1 RF: 0 Lantus Solostar U-100 Insulin 100 unit/mL (3 mL) insulin pen 10 unit SUBCUT HS RF: 0 oxycodone-acetaminophen 5-325 mg tablet 1 tab PO Q4H PRN (Reason: Pain) RF: 0 silver sulfadiazine [Silvadene] 1 % cream 1 applic topical DAILY Qty: 20 RF: 0 metformin 1,000 mg tablet 1,000 mg PO QAM RF: 0 carvedilol 6.25 mg tablet 3.125 mg PO BID RF: 0 omeprazole 20 mg capsule,delayed release(DR/EC) 20 mg PO QAM RF: 0 furosemide [Lasix] 20 mg tablet 40 mg PO DAILY PRN (Reason: edema) Qty: 30 RF: 0 I-Caps 280-10-2 mg Capsule 1 cap PO QAM RF: 0 nitroglycerin 0.4 mg tablet, sublingual 0.4 mg sublingual DIRECTED PRN (Reason: Chest Pain) RF: 0 sertraline [Zoloft] 50 mg tablet 50 mg PO UD RF: 0 isosorbide mononitrate 60 mg Tablet Extended Release 24 Hr 30 mg PO HS RF: 0 rosuvastatin 20 mg Tablet 10 mg PO QAM RF: 0 calcium carbonate 500 mg calcium (1,250 mg) tablet 500 mg PO QAM RF: 0 cholecalciferol (vitamin D3) 25 mcg (1,000 unit) capsule 25 mcg PO QAM RF: 0 Krames/Other Patient Handouts: High Blood Sugar (Hyperglycemia), Hypoglycemia (Low Blood Sugar), Managing Type 2 Diabetes, DVT Dc, Using Blood Thinners Anticoagulants Admission Data Admit Date/Time: 05/25/21 19:49 Attending Provider: Juan Delgado Admit Provider: Juan Jenkins Primary Care Provider: Katerina Ramos Other Providers: Nick Hurd Resident Activity Tracking Resident Involvement: Resident Care Provided Care Provided: Adult [facility] Medicine
[2021-05-29 06:52] LABS: Hematocrit (blood only) 26.2 % (42-52); Hemoglobin 8.4 g/dL (14.0-18.0); Mean Corpuscular Hemoglobin 28.7 pg (25-34); Mean Corpuscular Hgb Conc 32.1 g/dL (32-36); Mean Corpuscular Volume 89.4 fL (80-100); Mean Platelet Volume 8.6 fL (7.4-10.4); Platelet Count 718 K/uL (130-400); RDW Coefficient of Variation 16.1 % (11.5-14.5); RDW Standard Deviation 51.8 fL (36.4-46.3); Red Blood Count 2.93 M/uL (4.7-6.1); White Blood Count 15.84 K/uL (4.8-10.8)
[2021-05-29 07:14] LABS: ALC (manual) 1.65 K/uL (1.2-3.4); ANC (manual) 11.44 K/uL (1.4-6.5); Eosinophils # (manual) 0.14 K/uL (0-0.5); Eosinophils % (manual) 0.9 %; Lymphocytes # (manual) 1.65 K/uL (1.2-3.4); Lymphocytes % (manual) 10.4 %; Monocytes # (manual) 2.34 K/uL (0.11-0.59); Monocytes % (manual) 14.8 %; Myelocytes # (manual) 0.27 K/uL (0-0); Myelocytes % (manual) 1.7 %; Neutrophils # (manual) 11.44 K/uL (1.4-6.5); Neutrophils % (manual) 72.2 %; Poikilocytosis Present; Spherocytes 1+
[2021-05-29] MEDS: INSULIN ASPART PER UNIT SC SCH ×4 (08:28→21:11)
[2021-05-29] MEDS: carvediloL 3.125 MG TAB PO SCH ×2 (08:28→21:02)
[2021-05-29] MEDS: PANTOprazole 40 MG TAB PO SCH (08:29)
[2021-05-29] MEDS: CHOLECALCIFEROL 1,000 UNITS 25 MCG TAB PO SCH (08:29)
[2021-05-29] MEDS: ROSUVASTATIN CALCIUM 10 MG TAB PO SCH (08:29)
[2021-05-29] MEDS: CALCIUM CARBONATE 1250MG TAB PO SCH (08:29)
[2021-05-29] MEDS: SERTRALINE HCL 50 MG TABLET PO SCH (08:29)
[2021-05-29] MEDS: SILVER SULFADIAZINE 1% CR 50 GM JAR TOP SCH (08:30)
[2021-05-29] MEDS: ENOXAPARIN 80 MG/0.8 ML SYR SQ SCH ×2 (08:30→21:00)
--- NOTE | 2021-05-29 08:56 | Hospitalist Progress Note ---
Date of Service May 29, 2021 Assessment & Plan (1) Pulmonary emboli: Plan: This is an 85-year-old male with a history of bone marrow failure syndrome (per 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 Garvey at [facility], hypertension, ID-type 2 diabetes, subarachnoid hemorrhage 2-3 years ago following a fall on ice, paroxysmal atrial flutter, complete heart block status post pacemaker placement, polycystic kidney disease, CAD who presented to [facility] for evaluation of RIGHT leg pain at recommendation of PCP, subsequently found to have evidence of an extensive RLE DVT in addition to pulmonary emboli of the R lung without R heart strain. 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 After discussing role of inpatient rehab at length with patient on 05/28, he is amenable to going to rehab. I think he would greatly benefit from their services and would be able to participate in the daily therapy, as referenced by PT/OT here. CM aware, will initiate search. Pulmonary Emboli and DVT of the RLE -No previous history of VTE -Recent hip fracture in Mar 2021 with worsening mobilization as a result -Suspect etiology is likely multifactorial: immobilization in setting of recent hip fracture (R) with added hypercoagulability with Nplate infusions? -Venous doppler 05/25/21 notable for extensive venous thrombus of the RLE including the common femoral, femoris, superficial femoral, and popliteal veins. Partially occlusive thrombi also noted in the posterior tibial and peroneal veins. -CTA chest (05/26/21) -- asymptomatic -- notable for PE's in the R upper, middle, and lower lobes. No R heart strain. Notable for scattered subcentimeter pulmonary nodules that have not significantly changed since 2016 chest CTA. -Notable thrombocytosis >700 on admission in setting of regular NPlate injections for ITP -Initially started on Eliquis 10mg BID --> transitioned to Lovenox at recommendation of Dr. Ugarte, clinic -Continue Lovenox 70mg BID for therapeutic treatment of DVT and PEs -- will defer to outpatient horticultural specialty grower inside for length given the mixed picture of provoked/unprovoked in this case -Of note, patient with history of SDH 2-3 years ago - continue to monitor for symptoms concerning Persistent Thrombocytosis -- stable between 700-800 throughout admission -Appreciated on arrival in setting of the above and known h/o ITP, bone marrow failure syndrome -Suspect multifactorial etiology: NPlate injections and partially reactive from clot burden -- however, outstanding concern for malignancy (e.g., CML) still con sidered -Weekend team spoke with Dr. Garvey, patient's primary horticultural specialty grower inside -- advised against ASA at this time, noted this pattern was c/w NPlate injections -Consider bone marrow biopsy as outpatient if indicated History of ITP and Bone Marrow Failure -Follows with Oncology/Hematology Dr. 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 Garvey while inpatient -- recommends continuing to monitor CBC and platelet count -Would defer starting ASA therapy at this time as patient has a history of rebounding thrombocytosis and thrombocytopenia -Typical WBC 10-15, current elevation likely secondary to DVT and PE's -Typical Hgb 8-11: during his stay, H&H levels remained consistent within this range Type 2 DM -Continue Basal bolus and SSI -Hold Metformin -HgbA1c 7.1 History of Subarachnoid Hemorrhage -2-3 years prior after falling on ice -Monitor while on anticoagulation as noted above History of Atrial Flutter, Complete Heart Block, Hypertension, CAD -S/P pacemaker placement -Continue Carvedilol, Imdur, Crestor Mood Disorder -Continue Sertraline 75mg QD Dispo: MS. FORD searching for inpatient rehab, daughter Ayleen informed personally by me on 05/29 PPX: Lovenox therapeutic dosing, as above Diet: CC Code: DNR/DNI, discussed directly with patient with daughter in the room by admitting provider (2) DVT (deep venous thrombosis): (3) Bone marrow failure: (4) History of ITP: Admission and Anticipated Discharge Date Admission Date: May 25, 2021 Supervising Physician Co-Signing Physician Notes I personally examined the patient and verified all briscoe points of history and exam, discussed case, and agree with decision making with Dr Jenkins feeling ok but does want to go to rehab now. vitals noted nad heent nc at mmm breathing unlabored no accessory muscles good effort skin no rashes no pallor or icterus neuro no focal deficits DVT/PE - lovenox weakness - for rehab otherwise as above Subjective Feeling well this morning. Harjinder and I had a nice discussion last night regarding role, purpose of rehabilitation in his care. He shared that he had an unfavorable experience during one of his previous inpatient rehab stays where the staff didn't treat him too well. He says that he has had experiences in the past, however, where he really benefited from the PT/OT. After thinking about it overnight, he told me this morning that he would like to pursue rehab. No leg pain. Easier to void with getting up slowly. No CP/palpitations/SOB. Appetite strong. Spirits are ok this morning. Review of Systems Review of Systems: as per HPI Physical Exam Physical Exam: General: Well-appearing 85-year-old male no acute distress Cardiac: Normal rate and regular rhythm; S1 and S2 present with no murmurs, rubs, or gallops. Pulmonary: Good respiratory effort with symmetric expansion of the chest. No use of accessory muscles. Lungs were clear to auscultation bilaterally with no crackles or wheezes. Abdominal: Normoactive bowel sounds. Abdomen was soft, nondistended, and non-tender to palpation. Extremities: Visual examination of the lower extremities reveals more swollen right lower extremity when compared to the left. There is 1+ pitting edema on t he right -- improved minimally since yesterday. Dorsalis pedis pulse is 2+ on the right. Capillary refill under 2 seconds on the right. Ankle strength 5 out of 5. Homans negative. Psych: Well-developed, well-nourished, appropriately dressed for occasion. Behavior is cooperative and appropriate. Affect is WNL. Insight is appropriate. Results & Data Results & Data ([facility]) Vital Signs (Past 12 Hours) Vital Signs Temp Pulse Resp BP Pulse Ox 05/29/21 07:19 36.7 C 73 18 120/57 L 95 05/28/21 22:50 37.0 C 98 H 18 131/69 96 05/28/21 21:05 89 121/39 L Resident Activity Tracking Resident Involvement: Resident Care Provided Care Provided: Adult Hospital Medicine (1) DVT (deep venous thrombosis) Affected thrombotic vein of extremity: femoral Chronicity: acute DVT location: lower extremity Laterality: right Qualified Code(s): I82.411 - Acute embolism and thrombosis of right femoral vein
--- NOTE | 2021-05-29 16:46 | Billing Data ---
Date of Service May 29, 2021 Coding Level of Care Code 88010 Subseq Hosp Care Lvl 2
[2021-05-29] MEDS: ISOSORBIDE MONO EXTENDED REL 30 MG TABCR PO SCH (21:02)
[2021-05-29] MEDS: INSULIN GLARGINE SOLOSTAR 100 UNITS/ML 3 ML PEN SC SCH (21:05)
[2021-05-30] MEDS: INSULIN ASPART PER UNIT SC SCH ×4 (08:49→21:17)
[2021-05-30] MEDS: CALCIUM CARBONATE 1250MG TAB PO SCH (10:32)
[2021-05-30] MEDS: CHOLECALCIFEROL 1,000 UNITS 25 MCG TAB PO SCH (10:32)
[2021-05-30] MEDS: carvediloL 3.125 MG TAB PO SCH ×2 (10:32→21:03)
[2021-05-30] MEDS: SERTRALINE HCL 50 MG TABLET PO SCH (10:33)
[2021-05-30] MEDS: ROSUVASTATIN CALCIUM 10 MG TAB PO SCH (10:33)
[2021-05-30] MEDS: PANTOprazole 40 MG TAB PO SCH (10:33)
[2021-05-30] MEDS: ENOXAPARIN 80 MG/0.8 ML SYR SQ SCH ×2 (10:35→21:05)
[2021-05-30] MEDS: SILVER SULFADIAZINE 1% CR 50 GM JAR TOP SCH (10:36)
--- NOTE | 2021-05-30 10:44 | Hospitalist Progress Note ---
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 Garvey at [facility], hypertension, ID-type 2 diabetes, subarachnoid hemorrhage 2-3 years ago following a fall on ice, paroxysmal atrial flutter, complete heart block status post pacemaker placement, polycystic kidney disease, CAD who presented to [facility] for evaluation of RIGHT leg pain at recommendation of PCP, subsequently found to have evidence of an extensive RLE DVT in addition to pulmonary emboli of the R lung without R heart strain. He now awaits placement for inpatient rehabilitation. 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 After discussing role of inpatient rehab at length with patient on 05/28, he is amenable to going to rehab. I think he would greatly benefit from their services and would be able to participate in the daily therapy, as referenced by PT/OT here. CM aware, will initiate search. Pulmonary Emboli and DVT of the RLE -No previous history of VTE -Recent hip fracture in Mar 2021 with worsening mobilization as a result -Suspect etiology is likely multifactorial: immobilization in setting of recent hip fracture (R) with added hypercoagulability with Nplate infusions? -Venous doppler 05/25/21 notable for extensive venous thrombus of the RLE including the common femoral, femoris, superficial femoral, and popliteal veins. Partially occlusive thrombi also noted in the posterior tibial and peroneal veins. -CTA chest (05/26/21) -- asymptomatic -- notable for PE's in the R upper, middle, and lower lobes. No R heart strain. Notable for scattered subcentimeter pulmonary nodules that have not significantly changed since 2016 chest CTA. -Notable thrombocytosis >700 on admission in setting of regular NPlate injections for ITP -Initially started on Eliquis 10mg BID --> transitioned to Lovenox at recommendation of Dr. Ugarte, clinic -Continue Lovenox 70mg BID for therapeutic treatment of DVT and PEs -- will defer to outpatient lining baster for length given the mixed picture of provoked/unprovoked in this case -Of note, patient with history of SDH 2-3 years ago - continue to monitor for symptoms concerning Persistent Thrombocytosis -- stable between 700-800 throughout admission -Appreciated on arrival in setting of the above and known h/o ITP, bone marrow failure syndrome -Suspect multifactorial etiology: NPlate injections and partially reactive from clot burden -- however, outstanding concern for malignancy (e.g., CML) still considered -Weekend team spoke with Dr. Garvey, patient's primary lining baster -- advised against ASA at this time, noted this pattern was c/w NPlate injections -Consider bone marrow biopsy as outpatient if indicated -Check CBC tomorrow History of ITP and Bone Marrow Failure -Follows with Oncology/Hematology Dr. 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 Garvey while inpatient -- recommends continuing to monitor CBC and platelet count -Would defer starting ASA therapy at this time as patient has a history of rebounding thrombocytosis and thrombocytopenia -Typical WBC 10-15, current elevation likely secondary to DVT and PE's -Typical Hgb 8-11: during his stay, H&H levels remained consistent within this range -Check CBC tomorrow Type 2 DM -Continue Basal bolus and SSI -Hold Metformin -HgbA1c 7.1 History of Subarachnoid Hemorrhage -2-3 years prior after falling on ice -Monitor while on anticoagulation as noted above History of Atrial Flutter, Complete Heart Block, Hypertension, CAD -S/P pacemaker placement -Continue Carvedilol, Imdur, Crestor Mood Disorder -Continue Sertraline 75mg QD Dispo: [facility] searching for inpatient rehab PPX: Lovenox therapeutic dosing, as above Diet: CC Code: DNR/DNI, discussed directly with patient with daughter in the room by admitting provider (2) DVT (deep venous thrombosis): (3) Bone marrow failure: (4) History of ITP: Admission and Anticipated Discharge Date Admission Date: May 25, 2021 Supervising Physician Co-Signing Physician Notes I personally examined the patient and verified all briscoe points of history and exam, discussed case, and agree with decision making with Dr Jenkins feeling ok just waiting on rehab vitals noted nad heent nc at mmm breathing unlabored no accessory muscles good effort skin no rashes no pallor or icterus neuro no focal deficits DVT/PE - continue lovenox - probably indefinitely weakness - for rehab otherwise as above Subjective NAEO. Feeling really well this morning. Spirits are up. Looking forward to going to inpatient rehab. Leg pain continues to decrease. Mobility increasing. Working with PT- no issues. No CP/palpitations/SOB. No n/v/d. Review of Systems Review of Systems: as per HPI Physical Exam Physical Exam: General: Well-appearing 85-year-old male no acute distress Cardiac: Normal rate and regular rhythm; S1 and S2 present with no murmurs, rubs, or gallops. Pulmonary: Good respiratory effort with symmetric expansion of the chest. No use of accessory muscles. Lungs were clear to auscultation bilaterally with no crackles or wheezes. Abdominal: Normoactive bowel sounds. Abdomen was soft, nondistended, and non- tender to palpation. Extremities: Visual examination of the lower extremities reveals very mildly more swollen right lower extremity when compared to the left. There is 1+ pitting edema on the right -- improved since admission. Capillary refill under 2 seconds on the right. Ankle strength 5 out of 5. Homans negative. Psych: Well-developed, well-nourished, appropriately dressed for occasion. Behavior is cooperative and appropriate. Affect is WNL. Insight is appropriate. Results & Data Results & Data ([facility]) Vital Signs (Past 12 Hours) Vital Signs Temp Pulse Resp BP Pulse Ox 05/30/21 07:11 36.6 C 79 18 132/52 L 95 Resident Activity Tracking Resident Involvement: Resident Care Provided Care Provided: Adult Hospital Medicine (1) DVT (deep venous thrombosis) Affected thrombotic vein of extremity: femoral Chronicity: acute DVT location: lower extremity Laterality: right Qualified Code(s): I82.411 - Acute embolism and thrombosis of right femoral vein
--- NOTE | 2021-05-30 19:41 | Billing Data ---
Date of Service May 30, 2021 Coding Level of Care Code 63743 Subseq Hosp Care Lvl 1
[2021-05-30] MEDS: ISOSORBIDE MONO EXTENDED REL 30 MG TABCR PO SCH (21:03)
[2021-05-30] MEDS: INSULIN GLARGINE SOLOSTAR 100 UNITS/ML 3 ML PEN SC SCH (21:07)
--- NOTE | 2021-05-31 06:36 | Hospitalist Progress Note ---
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 Garvey at [facility], hypertension, ID-type 2 diabetes, subarachnoid hemorrhage 2-3 years ago following a fall on ice, paroxysmal atrial flutter, complete heart block status post pacemaker placement, polycystic kidney disease, CAD who presented to [facility] for evaluation of RIGHT leg pain at recommendation of PCP, subsequently found to have evidence of an extensive RLE DVT in addition to pulmonary emboli of the R lung without R heart strain. He now awaits placement for inpatient rehabilitation. 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 After discussing role of inpatient rehab at length with patient on 05/28, he is amenable to going to rehab. I think he would greatly benefit from their services and would be able to participate in the daily therapy, as referenced by PT/OT here. CM aware, will initiate search. --> [place] unable to accept at this time. Search ongoing for alternative facility. Pulmonary Emboli and DVT of the RLE -No previous history of VTE -Recent hip fracture in Mar 2021 with worsening mobilization as a result -Suspect etiology is likely multifactorial: immobilization in setting of recent hip fracture (R) with added hypercoagulability with Nplate infusions? -Venous doppler 05/25/21 notable for extensive venous thrombus of the RLE -CTA chest (05/26/21)--obtained asymptomatically--PE's in the R upper, middle, and lower lobes. No R heart strain. Notable for scattered subcentimeter pulmonary nodules that have not significantly changed since 2016 chest CTA. -Notable thrombocytosis >700 on admission in setting of regular NPlate injections for ITP -Initially started on Eliquis 10mg BID --> transitioned to Lovenox at recommendation of Dr. Ugarte, clinic -Continue Lovenox 70mg BID for therapeutic treatment of DVT and PEs -- will defer to outpatient jig operator for length given the mixed picture of provoked/unprovoked in this case -Of note, patient with history of SDH 2-3 years ago - continue to monitor for symptoms concerning Persistent Thrombocytosis -- stable between 600-800 throughout admission -Appreciated on arrival in setting of the above and known h/o ITP, bone marrow failure syndrome -Suspect multifactorial etiology: NPlate injections and partially reactive from clot burden -- however, outstanding concern for malignancy (e.g., CML) still considered -Spoke with Dr. Garvey, patient's primary jig operator -- advised against ASA at this time, noted this pattern was c/w NPlate injections -Consider bone marrow biopsy as outpatient if indicated History of ITP and Bone Marrow Failure -Follows with Oncology/Hematology Dr. 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 Garvey while inpatient -- recommends continuing to monitor CBC and platelet count -Would defer starting ASA therapy at this time as patient has a history of rebounding thrombocytosis and thrombocytopenia -Typical WBC 10-15, current elevation likely secondary to DVT and PE's -Typical Hgb 8-11: during his stay, H&H levels remained consistent within this range Type 2 DM -Continue Basal bolus and SSI -Hold Metformin -HgbA1c 7.1 History of Subarachnoid Hemorrhage -2-3 years prior after falling on ice -Monitor while on anticoagulation as noted above History of Atrial Flutter, Complete Heart Block, Hypertension, CAD -S/P pacemaker placement -Continue Carvedilol, Imdur, Crestor Mood Disorder -Continue Sertraline 75mg QD Dispo: [facility] searching for inpatient rehab PPX: Lovenox therapeutic dosing, as above Diet: CC Code: DNR/DNI, discussed directly with patient with daughter in the room by admitting provider (2) DVT (deep venous thrombosis): (3) Bone marrow failure: (4) History of ITP: Admission and Anticipated Discharge Date Admission Date: May 25, 2021 Supervising Physician Co-Signing Physician Notes I personally examined the patient and verified all briscoe points of history and exam, discussed case, and agree with decision making with Dr Jenkins feeling ok just waiting on rehab but also notes if he is unable to find a facility he is not opposed to going home vitals noted nad heent nc at mmm breathing unlabored no accessory muscles good effort skin no rashes no pallor or icterus neuro no focal deficits DVT/PE - continue lovenox - open ended weakness - for rehab once approved otherwise as above Subjective NAEO. Feeling OK this morning. Walking around better and better. Spirits kind of down with rehab being denied at his preferred location. No CP/palpitations/SOB. Review of Systems Review of Systems: as per HPI Physical Exam Physical Exam: General: Well-appearing 85-year-old male no acute distress Cardiac: Well perfused. Pulmonary: Good respiratory effort with symmetric expansion of the chest. No use of accessory muscles. MSK: Gait assessment - stable appearing posture using the walker. Nurse student at his side. Results & Data Results & Data ([facility]) Vital Signs (Past 12 Hours) Vital Signs Temp Pulse Pulse Resp BP Pulse Ox 05/30/21 23:28 36.8 C 86 18 102/50 L 96 05/30/21 21:02 79 138/49 L Resident Activity Tracking Resident Involvement: Resident Care Provided Care Provided: Adult Hospital Medicine (1) DVT (deep venous thrombosis) Affected thrombotic vein of extremity: femoral Chronicity: acute DVT location: lower extremity Laterality: right Qualified Code(s): I82.411 - Acute embolism and thrombosis of right femoral vein
[2021-05-31 07:28] LABS: Hematocrit (blood only) 25.7 % (42-52); Hemoglobin 8.2 g/dL (14.0-18.0); Mean Corpuscular Hemoglobin 28.9 pg (25-34); Mean Corpuscular Hgb Conc 31.9 g/dL (32-36); Mean Corpuscular Volume 90.5 fL (80-100); Mean Platelet Volume 8.9 fL (7.4-10.4); Platelet Count 664 K/uL (130-400); RDW Standard Deviation 53.6 fL (36.4-46.3); Red Blood Count 2.84 M/uL (4.7-6.1); White Blood Count 11.93 K/uL (4.8-10.8)
[2021-05-31 07:52] LABS: ALC (manual) 1.66 K/uL (1.2-3.4); Eosinophils # (manual) 0.11 K/uL (0-0.5); Eosinophils % (manual) 0.9 %; Lymphocytes # (manual) 1.66 K/uL (1.2-3.4); Lymphocytes % (manual) 13.9 %; Monocytes # (manual) 1.77 K/uL (0.11-0.59); Monocytes % (manual) 14.8 %; Neutrophils % (manual) 70.4 %
[2021-05-31] MEDS: INSULIN ASPART PER UNIT SC SCH ×4 (08:39→21:15)
[2021-05-31] MEDS: CALCIUM CARBONATE 1250MG TAB PO SCH (09:41)
[2021-05-31] MEDS: CHOLECALCIFEROL 1,000 UNITS 25 MCG TAB PO SCH (09:41)
[2021-05-31] MEDS: carvediloL 3.125 MG TAB PO SCH ×2 (09:41→20:53)
[2021-05-31] MEDS: ROSUVASTATIN CALCIUM 10 MG TAB PO SCH (09:42)
[2021-05-31] MEDS: SERTRALINE HCL 50 MG TABLET PO SCH (09:42)
[2021-05-31] MEDS: PANTOprazole 40 MG TAB PO SCH (09:42)
[2021-05-31] MEDS: SILVER SULFADIAZINE 1% CR 50 GM JAR TOP SCH (09:43)
[2021-05-31] MEDS: ENOXAPARIN 80 MG/0.8 ML SYR SQ SCH ×2 (09:43→20:51)
--- NOTE | 2021-05-31 14:56 | Billing Data ---
Date of Service May 31, 2021 Coding Level of Care Code 51724 Subseq Hosp Care Lvl 1
[2021-05-31] MEDS: ISOSORBIDE MONO EXTENDED REL 30 MG TABCR PO SCH (20:53)
[2021-05-31] MEDS: INSULIN GLARGINE SOLOSTAR 100 UNITS/ML 3 ML PEN SC SCH (21:16)
[2021-06-01 07:38] LABS: Hematocrit (blood only) 24.8 % (42-52); Hemoglobin 7.9 g/dL (14.0-18.0); Mean Corpuscular Hemoglobin 28.8 pg (25-34); Mean Corpuscular Hgb Conc 31.9 g/dL (32-36); Mean Corpuscular Volume 90.5 fL (80-100); Mean Platelet Volume 8.7 fL (7.4-10.4); Platelet Count 656 K/uL (130-400); RDW Coefficient of Variation 16.1 % (11.5-14.5); RDW Standard Deviation 52.5 fL (36.4-46.3); Red Blood Count 2.74 M/uL (4.7-6.1); White Blood Count 10.67 K/uL (4.8-10.8)
[2021-06-01 08:12] LABS: ALC (manual) 1.86 K/uL (1.2-3.4); ANC (manual) 6.58 K/uL (1.4-6.5); Basophils % (manual) 0.9 %; Lymphocytes # (manual) 1.86 K/uL (1.2-3.4); Lymphocytes % (manual) 17.4 %; Metamyelocytes % (manual) 0.9 %; Monocytes # (manual) 2.04 K/uL (0.11-0.59); Monocytes % (manual) 19.1 %; Neutrophils # (manual) 6.58 K/uL (1.4-6.5); Neutrophils % (manual) 61.7 %
[2021-06-01] MEDS: INSULIN ASPART PER UNIT SC SCH ×2 (09:42→13:22)
[2021-06-01] MEDS: CHOLECALCIFEROL 1,000 UNITS 25 MCG TAB PO SCH (09:44)
[2021-06-01] MEDS: CALCIUM CARBONATE 1250MG TAB PO SCH (09:44)
[2021-06-01] MEDS: carvediloL 3.125 MG TAB PO SCH (09:44)
[2021-06-01] MEDS: ROSUVASTATIN CALCIUM 10 MG TAB PO SCH (09:45)
[2021-06-01] MEDS: PANTOprazole 40 MG TAB PO SCH (09:45)
[2021-06-01] MEDS: SERTRALINE HCL 50 MG TABLET PO SCH (09:45)
--- NOTE | 2021-06-01 10:54 | Hospitalist Progress Note ---
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 Garvey at [facility], hypertension, ID-type 2 diabetes, subarachnoid hemorrhage 2-3 years ago following a fall on ice, paroxysmal atrial flutter, complete heart block status post pacemaker placement, polycystic kidney disease, CAD who presented to [facility] for evaluation of RIGHT leg pain at recommendation of PCP, subsequently found to have evidence of an extensive RLE DVT in addition to pulmonary emboli of the R lung without R heart strain. He now awaits placement for inpatient rehabilitation. 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 After discussing role of inpatient rehab at length with patient on 05/28, he is amenable to going to rehab. I think he would greatly benefit from their services and would be able to participate in the daily therapy, as referenced by PT/OT here. CM aware, will initiate search. --> [place] unable to accept at this time. Search ongoing for alternative facility. Awaiting to hear back from Deana Jacobs Pulmonary Emboli and DVT of the RLE -No previous history of VTE -Recent hip fracture in Mar 2021 with worsening mobilization as a result -Suspect etiology is likely multifactorial: immobilization in setting of recent hip fracture (R) with added hypercoagulability with Nplate infusions? -Venous doppler 05/25/21 notable for extensive venous thrombus of the RLE -CTA chest (05/26/21)--obtained asymptomatically--PE's in the R upper, middle, and lower lobes. No R heart strain. Notable for scattered subcentimeter pulmonary nodules that have not significantly changed since 2016 chest CTA. -Notable thrombocytosis >700 on admission in setting of regular NPlate injections for ITP -Initially started on Eliquis 10mg BID --> transitioned to Lovenox at recommendation of Dr. Ugarte, clinic -Continue Lovenox 70mg BID for therapeutic treatment of DVT and PEs -- will defer to outpatient merchandise handler for length given the mixed picture of provoked/unprovoked in this case -Of note, patient with history of SDH 2-3 years ago - continue to monitor for symptoms concerning Persistent Thrombocytosis -- stable between 600-800 throughout admission -Appreciated on arrival in setting of the above and known h/o ITP, bone marrow failure syndrome -Suspect multifactorial etiology: NPlate injections and partially reactive from clot burden -- however, outstanding concern for malignancy (e.g., CML) still considered -Spoke with Dr. Garvey, patient's primary merchandise handler -- advised against ASA at this time, noted this pattern was c/w NPlate injections -Consider bone marrow biopsy as outpatient if indicated History of ITP and Bone Marrow Failure -Follows with Oncology/Hematology Dr. 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 Garvey while inpatient -- recommends continuing to monitor CBC and platelet count -Would defer starting ASA therapy at this time as patient has a history of rebounding thrombocytosis and thrombocytopenia -Typical WBC 10-15, current elevation likely secondary to DVT and PE's -Typical Hgb 8-11: during his stay, H&H levels remained consistent within this range Type 2 DM -Continue Basal bolus and SSI -Hold Metformin -HgbA1c 7.1 History of Subarachnoid Hemorrhage -2-3 years prior after falling on ice -Monitor while on anticoagulation as noted above History of Atrial Flutter, Complete Heart Block, Hypertension, CAD -S/P pacemaker placement -Continue Carvedilol, Imdur, Crestor Mood Disorder -Continue Sertraline 75mg QD Dispo: [facility] searching for inpatient rehab PPX: Lovenox therapeutic dosing, as above Diet: CC Code: DNR/DNI, discussed directly with patient with daughter in the room by admitting provider (2) DVT (deep venous thrombosis): (3) Bone marrow failure: (4) History of ITP: Admission and Anticipated Discharge Date Admission Date: May 25, 2021 Subjective Patient evaluated at the bedside this AM. Patient noting that he feels "okay" today and is hopeful for either discharge or placement. Has noted fair improvement in his RLE swelling and pain, though still notes some R thigh pain. Otherwise denies fever, chills, SOB, chest pain, chest pressure, abdominal pain. Review of Systems Review of Systems: All systems reviewed & are unremarkable except as noted in Subjective Physical Exam Constitutional: WD/WN, vitals as above no acute distress Neck: trachea midline, no thyromegaly Respiratory: normal respiratory effort, lungs clear to auscultation Cardiovascular: Rate/Rhythm: + irregularly irregular Extremities: no calf tenderness (Notable for R thigh tenderness) Chest (Breasts): Chest: + pacemaker Gastrointestinal (Abdomen): normal bowel sounds, soft, nontender, no hepatosplenomegaly Results & Data Results & Data ([facility]) Vital Signs (Past 12 Hours) Vital Signs Temp Pulse Pulse Resp BP Pulse Ox 06/01/21 07:29 36.5 C 78 14 132/66 95 06/01/21 00:39 36.9 C 79 16 121/55 L 95 Resident Activity Tracking Resident Involvement: Resident Care Provided Care Provided: Adult Hospital Medicine (1) DVT (deep venous thrombosis) Affected thrombotic vein of extremity: femoral Chronicity: acute DVT location: lower extremity Laterality: right Qualified Code(s): I82.411 - Acute embolism and thrombosis of right femoral vein
[2021-06-01] MEDS: SILVER SULFADIAZINE 1% CR 50 GM JAR TOP SCH (12:17)
[2021-06-01] MEDS: ENOXAPARIN 80 MG/0.8 ML SYR SQ SCH (12:19)
--- NOTE | 2021-06-01 14:54 | Discharge Summary ---
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 Garvey at [facility], hypertension, ID-type 2 diabetes, subarachnoid hemorrhage 2-3 years ago following a fall on ice, complete heart block status post pacemaker placement, polycystic kidney disease, CAD who presented to [facility] for evaluation of RIGHT leg pain at recommendation of PCP. He says that his right lower extremity has been swollen and painful over the last several days. He has a history of nondisplaced R hip fracture in 03/2021 following a fall; during this hospitalization, he was apparently noted to have thrombocytopenia and was started on IV steroids and given IVIG x 5 days. Venous Doppler ordered by his primary care physician revealed extensive DVT, for which he was told to come to the emergency room. He denies any chest pain, palpitations, shortness of breath. Denies any recent travel / long car rides / periods of immobilization , though he says "I haven't been walking as much." He endorses a fall at home a few weeks ago and has h/o falls in the past. Lives at home with , and daughter notes he "pretty much lives out of a single room." No recent RX changes. No h/o VTE. No tobacco, EtOH, or recreational drug use history. In the ED, patient was observed to have normal vital signs. Admission labs significant for leukocytosis to 19.6 with neutrophilic predominance, persistent normocytic anemia 10.1, thrombocytosis 701, normal troponin, negative COVID-19. Venous Doppler of the right lower extremity revealed extensive DVT within the common femoral, femoris, superficial femoral, and popliteal veins. Chest x-ray normal. Admission Exam Per Admitting Provider General: Well-appearing 85-year-old male no acute distress Cardiac: Normal rate and regular rhythm; S1 and S2 present with no murmurs, rubs, or gallops. Pulmonary: Good respiratory effort with symmetric expansion of the chest. No use of accessory muscles. Lungs were clear to auscultation bilaterally with no crackles or wheezes. Abdominal: Normoactive bowel sounds. Abdomen was soft, nondistended, and non- tender to palpation. Extremities: Visual examination of the lower extremities does reveal an appreciably more swollen right lower extremity when compared to the left. Compared to the left, the right lower extremity does feel more warm to the touch. There is 3+ pitting edema on the right, 1+ on the left. Dorsalis pedis pulse is 2+ on the right. Capillary refill under 2 seconds on the right. Ankle strength 5 out of 5. Homans negative. Psych: Well-developed, well-nourished, appropriately dressed for occasion. Behavior is cooperative and appropriate. Affect is WNL. Insight is appropriate. Principal Diagnosis RLE DVT and Pulmonary Embolism Discharge Exam Constitutional WD/WN, vitals as above no acute distress Neck trachea midline, no thyromegaly Respiratory normal respiratory effort, lungs clear to auscultation Cardiovascular Rate/Rhythm: + irregularly irregular Extremities: no calf tenderness (Notable for R thigh tenderness) Chest (Breasts) Chest: + pacemaker Gastrointestinal (Abdomen) normal bowel sounds, soft, nontender, no hepatosplenomegaly Discharge Data Allergies Allergy/AdvReac Type Severity Reaction Status Date / Time No Known Allergies Allergy Verified 05/25/21 13:12 Consultations 05/25/21 19:08 ED Decision to Admit Stat Ordered Studies 05/26/21 08:52 CT angio chest PE protocol Urgent Hospital Course (1) Pulmonary emboli: This is an 85-year-old male with a history of bone marrow failure syndrome (per [facility] notes), thrombocytopenia 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 Garvey at [facility], hypertension, ID-type 2 diabetes, subarachnoid hemorrhage 2-3 years ago following a fall on ice, paroxysmal atrial flutter, complete heart block status post pacemaker placement, polycystic kidney disease, CAD who presented to [facility] for evaluation of RIGHT leg pain at recommendation of PCP, subsequently found to have evidence of an extensive RLE DVT in addition to pulmonary emboli of the R lung without R heart strain. 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 After discussing role of inpatient rehab at length with patient on 05/28, he is amenable to going to rehab. -Discharge today to [facility] Pulmonary Emboli and DVT of the RLE -No previous history of VTE -Recent hip fracture in Mar 2021 with worsening mobilization as a result -Suspect etiology is likely multifactorial: immobilization in setting of recent hip fracture (R) with added hypercoagulability with Nplate infusions? -Venous doppler 05/25/21 notable for extensive venous thrombus of the RLE -CTA chest (05/26/21)--obtained asymptomatically--PE's in the R upper, middle, and lower lobes. No R heart strain. Notable for scattered subcentimeter pulmonary nodules that have not significantly changed since 2016 chest CTA. -Notable thrombocytosis >700 on admission in setting of regular NPlate injections for ITP -Initially started on Eliquis 10mg BID --> transitioned to Lovenox at recommendation of Dr. Ugarte, clinic -Continue Lovenox 70mg BID for therapeutic treatment of DVT and PEs -- will defer to outpatient housetrailer servicer for length given the mixed picture of provoked/unprovoked in this case -Of note, patient with history of SDH 2-3 years ago - continue to monitor for symptoms concerning Persistent Thrombocytosis -- stable between 600-800 throughout admission -Appreciated on arrival in setting of the above and known h/o ITP, bone marrow failure syndrome -Suspect multifactorial etiology: NPlate injections and partially reactive from clot burden -- however, outstanding concern for malignancy (e.g., CML) still considered -Spoke with Dr. Garvey, patient's primary housetrailer servicer -- advised against ASA at this time, noted this pattern was c/w NPlate injections -Consider bone marrow biopsy as outpatient if indicated History of ITP and Bone Marrow Failure -Follows with Oncology/Hematology Dr. Garvey ([phone]) at [facility] -Weekly Nplate infusions (last infusion roughly 2 weeks prior to admission per patient) for approx. 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 Garvey while inpatient -- recommends continuing to monitor CBC and platelet count -Would defer starting ASA therapy at this time as patient has a history of rebounding thrombocytosis and thrombocytopenia -Typical WBC 10-15, current elevation likely secondary to DVT and PE's -Typical Hgb 8-11: during his stay, H&H levels remained consistent within this range Type 2 DM -Continue Basal bolus and SSI -Hold Metformin - resume on discharge -HgbA1c 7.1 History of Subarachnoid Hemorrhage -2-3 years prior after falling on ice -Monitor while on anticoagulation as noted above History of Atrial Flutter, Complete Heart Block, Hypertension, CAD -S/P pacemaker placement -Continued Carvedilol, Imdur, Crestor Mood Disorder -Continued Sertraline 75mg QD (2) DVT (deep venous thrombosis): (3) Bone marrow failure: (4) History of ITP: Total Time Total Time Spent Total Time Spent (In Minutes): <30 Discharge Plan Discharge Items Patient Disposition: Transfer Inpatient Rehab Fac Reason For Visit: DVT Discharge Diagnosis: deep venous thrombosis of the right leg pulmonary emboli Activity: Per Instructions section Non-emergency contact: Primary Care Provider and Oncologist Call non-emergency contact if: you have any medication questions, your symptoms worsen, your pain is worsening and your temperature is above 101 Follow-up/Referrals: Katerina Ramos MD [Primary Care Provider] - Diet: Regular Addtl Attending Provider Instructions: You were seen in [facility] for evaluation of right leg pain. Upon your arrival here, you underwent several tests to determine the cause of this pain. You are discovered to have an extensive clot within the veins of your right leg. You were started on a blood thinner (anticoagulation) to help treat this clot. At the recommendation of one of our housetrailer servicer, you also underwent a chest scan, which did discover clots within the lungs as well. Given these findings, you will have to use anticoagulation/blood thinners for the next_. Right now, it is thought that your clots likely formed from decreased movement following her hip fracture, as well as potentially from an extra "clotting burden" from your Nplate injections. Given this suspicion, we did speak with Dr. Garvey during your stay hereit will be important for you to follow-up with him closely after discharge. Prior to your discharge, we discussed that inpatient rehabilitation was recommended for you by our physical and occupational therapists to help with mobility, restrengthening. After extensive discussions about the risks, benefits, alternatives to this, you preferred to resume your care at home. Please remember that you are now on a blood thinner and are now more prone to bleeding, such as after a fall. Please continue working with PT, OT at home or in their offices to work on mobility, restrengthening, and increasing your functionality after discharge. Upon your discharge, please note the following medication changes/additions/changes: - Continue Lovenox 70mg, injected subcutaneously TWICE DAILY (once in AM, once in PM - 12 hours apart ideally), until directed otherwise by your housetrailer servicer Please follow-up with your primary care physician within 1 week to review this visit. Please also make an appointment to review this visit with Dr. Garvey as soon as you are able. In the interim, if you experience any worsening like pain, chest pain, palpitations, shortness of breath, lightheadedness, dizziness, fever, chills, night sweats, or other worrisome symptoms, please report to the emergency room for immediate evaluation. Have [facility] follow periodic blood counts (CBC) to coordinate with your regular housetrailer servicer It is a pleasure for caring for you while you are here and we wish you all the best in your recovery. Pending Studies at Discharge: No Stand-Alone Forms: My [facility] Skilled Items Lines: None Urinary Catheter: No Medications and DC Order Prescriptions: New enoxaparin [Lovenox] 80 mg/0.8 mL Syringe 70 mg subcut Q12H Qty: 60 RF: 0 Continued cyanocobalamin (vitamin B-12) 1,000 mcg/mL kit 1,000 mcg IM MONTHLY Qty: 1 RF: 0 (DME) pen needle, diabetic [BD Ultra-Fine Short Pen Needle] 31 gauge x 5/16" needle See Dose Instructions .ROUTE .MEDSUPPLY Qty: 100 RF: 0 (DME) hospital bed rental See Rx Instructions .Route .MEDSUPPLY Qty: 1 RF: 0 oxycodone-acetaminophen 5-325 mg tablet 1 tab PO Q4H PRN (Reason: Pain) RF: 0 silver sulfadiazine [Silvadene] 1 % cream 1 applic topical DAILY Qty: 20 RF: 0 metformin 1,000 mg tablet 1,000 mg PO QAM RF: 0 carvedilol 6.25 mg tablet 3.125 mg PO BID RF: 0 omeprazole 20 mg capsule,delayed release(DR/EC) 20 mg PO QAM RF: 0 furosemide [Lasix] 20 mg tablet 40 mg PO DAILY PRN (Reason: edema) Qty: 30 RF: 0 I-Caps 280-10-2 mg Capsule 1 cap PO QAM RF: 0 nitroglycerin 0.4 mg tablet, sublingual 0.4 mg sublingual DIRECTED PRN (Reason: Chest Pain) RF: 0 sertraline [Zoloft] 50 mg tablet 50 mg PO UD RF: 0 isosorbide mononitrate 60 mg Tablet Extended Release 24 Hr 30 mg PO HS RF: 0 rosuvastatin 20 mg Tablet 10 mg PO QAM RF: 0 calcium carbonate 500 mg calcium (1,250 mg) tablet 500 mg PO QAM RF: 0 cholecalciferol (vitamin D3) 25 mcg (1,000 unit) capsule 25 mcg PO QAM RF: 0 Changed Lantus Solostar U-100 Insulin 100 unit/mL (3 mL) insulin pen 6 unit SUBCUT HS Qty: 0 RF: 0 Discharge Orders: Discharge Order (Routine); Ordered 06/01/21 Ordered By: Juan Maurice/Other Patient Handouts: Using Blood Thinners Anticoagulants, High Blood Sugar (Hyperglycemia), Hypoglycemia (Low Blood Sugar), Managing Type 2 Diabetes, DVT Dc, Venous Thromboembolism Admission Data Admit Date/Time: 05/25/21 19:49 Attending Provider: Juan Delgado Admit Provider: Juan Jenkins Primary Care Provider: Katerina Ramos Other Providers: Nick Hurd ; Dipti Soni ; [facility] Other Interventions: Discharge Summary Assessment (RN) Last Done: 06/01/21 15:47 Supervising Physician Co-Signing Physician Notes I personally examined the patient and verified all briscoe points of history and exam, discussed case, and agree with decision making with Dr Jenkins Sleeping. Rehab approved. vitals noted resting comfortably nad heent nc at mmm breathing unlabored no accessory muscles good effort skin no rashes no pallor or icterus neuro no focal deficits at rest DVT/PE - continue lovenox - open ended weakness - for rehab today otherwise as above Resident Activity Tracking Resident Involvement: Resident Care Provided Care Provided: Adult Hospital Medicine
--- NOTE | 2021-06-01 17:37 | Billing Data ---
Date of Service June 01, 2021 Coding Level of Care Code D/C DAY MANAGEMENT <30 MINS
[2021-06-02] MEDS ORDERED: SERTRALINE HCL 50 MG TABLET PO SCH (09:00)
[2021-06-24] MEDS ORDERED: CYANOCOBALAMIN 1000 MCG/ML VIAL IM SCH (09:00)
== END 2021-06-01 16:21 | DRG 299 ==
LOC: ED 17:55 → SUATTDRO 19:49 → 3W 19:49